=== PATIENT | female | born 1965 | race Caucasian/White ===

== ENCOUNTER 2019-09-28 11:30 | Emergency (ER) | payer OTHER ==
[~2019-09-28] VITALS: Ht 157.5 cm; Wt 89.4 kg
--- OUTSIDE RECORDS SUMMARY | ~2019-09-28 | XMS | Clinical Summary ---
Demographics + + + | Address | [address] | | | [place] [address] | + + + | Home Phone | | + + + | Preferred Language | Unknown | + + + | Marital Status | Single | + + + | Adventism Affiliation | Unknown | + + + | Race | White | + + + | Ethnic Group | Not or | + + + Author + + + | Author | NON REVENUE LOCATIONS | + + + | Organization | NON REVENUE LOCATIONS | + + + | Address | Unknown | + + + | Phone | Unavailable | + + + Support + + +---------+ + | Name | Relationship | Address | Phone | + + +---------+ + | Sourav Perry | ECON | Unknown | | + + +---------+ + Care Team Providers + +------+ + | Care Manager Winter Name | Role | Phone | + +------+ + | Dina Craig MD | PCP | | + +------+ + Source Comments [facility]UAN [facility] Allergies + + + + + + | Active Allergy | Reactions | Severity | Noted | Comments | | | | | Date | | + + + + + + | Penicillin | Headache, Rash, | | 05/28/20 | | | | Nausea and Vomiting | | 19 | | + + + + + + | Sulfa (Sulfonamide | Headache, Rash, | | 05/28/20 | | | Antibiotics) | Nausea and Vomiting | | 19 | | + + + + + + Medications + + + +---------+------+------+-------+ | Medication | Sig | Dispensed | Refills | Star | End | Statu | | | | | | t | Date | s | | | | | | Date | | | + + + +---------+------+------+-------+ | irbesartan 300 mg | Take 1 tablet by | | 0 | 07/2 | | Activ | | oral tablet | mouth once daily. | | | 1/20 | | e | | | | | | 19 | | | + + + +---------+------+------+-------+ | metoprolol | Take 1 tablet by | | 0 | 07/2 | | Activ | | tartrate 50 mg oral | mouth two times | | | 1/20 | | e | | tablet | daily. | | | 19 | | | + + + +---------+------+------+-------+ | omeprazole 40 mg | Take 1 capsule by | | 0 | 07/2 | | Activ | | oral capsule,delayed | mouth once daily. | | | 20 | | e | | release(DR/EC) | | | | 19 | | | + + + +---------+------+------+-------+ | albuterol 90 | Inhale by mouth as | | 0 | 07/2 | | Activ | | mcg/actuation | needed. | | | 20 | | e | | inhalation HFA | | | | 19 | | | | aerosol inhaler | | | | | | | + + + +---------+------+------+-------+ | sertraline HCl | Take 50 mcg by mouth | | 0 | | | Activ | | (SERTRALINE ORAL) | two times daily. | | | | | e | + + + +---------+------+------+-------+ Active Problems Not on file Encounters +--------+ + + + + | Date | Type | Specialty | Care Team | Description | +--------+ + + + + | 07/19/ | Telephone | Cardiology | Gildardo Samayoa RN | Appointment | | 2019 | | | | | +--------+ + + + + from Last 3 Months Social History + + + +--------+------+ | Tobacco Use | Types | Packs/Day | Years | Date | | | | | Used | | + + + +--------+------+ | Current Every Day | Cigarettes | 1 | 47 | | | Smoker | | | | | + + + +--------+------+ + +---+---+---+ | Smokeless Tobacco: | | | | | Never Used | | | | + +---+---+---+ + + +---------+ + | Alcohol Use | Drinks/Week | oz/Week | Comments | + + +---------+ + | Not Currently | | | | + + +---------+ + + + + | Sex Assigned at | Date Recorded | | | | + + + | Not on file | | + + + + + + + | Job Start Date | Occupation | Industry | + + + + | Not on file | Not on file | Not on file | + + + + + + + + | Travel History | Travel Start | Travel End | + + + + + + | No recent travel history available. | + + Last Filed Vital Signs + + + + + | Vital Sign | Reading | Time Taken | Comments | + + + + + | Blood Pressure | 98/62 | 05/28/2019 2:36 PM | | | | | PDT | | + + + + + | Pulse | 63 | 05/28/2019 2:36 PM | | | | | PDT | | + + + + + | Temperature | - | - | | + + + + + | Respiratory Rate | - | - | | + + + + + | Oxygen Saturation | 98% | 05/28/2019 2:36 PM | | | | | PDT | | + + + + + | Inhaled Oxygen | - | - | | | Concentration | | | | + + + + + | Weight | 86.6 kg (191 lb) | 05/28/2019 2:36 PM | | | | | PDT | | + + + + + | Height | 157.5 cm (5' 2") | 05/28/2019 2:36 PM | | | | | PDT | | + + + + + | Body Mass Index | 34.93 | 05/28/2019 2:36 PM | | | | | PDT | | + + + + + Plan of Treatment +--------+ + + + + | Date | Type | Specialty | Care Team | Description | +--------+ + + + + | 07/24/ | Procedure | Surgery | | | | 2020 | Pass | | | | +--------+ + + + + + + + + + | Health Maintenance | Due Date | Last Done | Comments | + + + + + | Pneumococcal | | | | | vaccination (1 of 1 | 0 | | | | - PPSV23) | | | | + + + + + | Influenza (Flu) | | | | | vaccination (#1) | 9 | | | + + + + + Results Not on filefrom Last 3 Months Insurance + +--------+ +--------+-------+---------+--------+ | Payer | Benefi | Subscriber | Effect | Phone | Address | Type | | | t Plan | ID | [id number] | | | | | | / | | Dates | | | | | | Group | | | | | | + +--------+ +--------+-------+---------+--------+ | RED MUD THICKENER OPERATOR MEDICAID | RED MUD THICKENER OPERATOR | [id number] | | | | Medica | | | [place] | | 018-Pr | | | id | | | [place] | | esent | | | | + +--------+ +--------+-------+---------+--------+ + +--------+ +--------+ + + | Guarantor Name | Accoun | Relation to | Date | Phone | Billing Address | | | t Type | Patient | of | | | | | | | | | | + +--------+ +--------+ + + | Rita Salmeron | Person | Self [birth year] | [birth year] | | | al/Fam | | 1965 | [phone] | [place] [address] | | | colleen | | | 4 (Home) | | + +--------+ +--------+ + +
--- OUTSIDE RECORDS SUMMARY | ~2019-09-28 | XMS | Clinical Summary ---
Demographics + + + | Address | [address] | | | [place] [address] | + + + | Home Phone | | + + + | Preferred Language | Unknown | + + + | Marital Status | Single | + + + | Mu-Ism Affiliation | Unknown | + + + [...] Team Providers + +------+ + | Care Film Reader Name | Role | Phone | + +------+ + | iDna Craig MD | PCP | | + +------+ + Source Comments JUAN CARLOS [facility] Allergies + + + + + + [...] | | | + +--------+ +--------+-------+---------+--------+ | DIRECTOR CLINICAL RESEARCH MEDICAID | DIRECTOR CLINICAL RESEARCH | xxxxxxxx | | | | Medica [...] | 1965 | [phone] | [place] [address] | | | colleen | | | 4 (Home) | | + +--------+ +--------+ + +
--- OUTSIDE RECORDS SUMMARY | ~2019-09-28 | XMS | Encounter Summary ---
Demographics + + + | Address | [address] | | | [place] [address] | + + + | Home Phone | | + + + | Preferred Language | Unknown | + + + | Marital Status | Single | + + + | Buddhism Affiliation | Unknown | + + + | Race | White | + + + | Ethnic Group | Not or | + + + Author + + + | Author | [facility] | + + + | Organization | [facility] | + + + | Address | Unknown | + + + | Phone | Unavailable | + + + Support + + +---------+ + | Name | Relationship | Address | Phone | + + +---------+ + | Sourav Perry | ECON | Unknown | | + + +---------+ + Care Team Providers + +------+ + | Care Analytical Chemist Name | Role | Phone | + +------+ + | Dina Craig MD | PCP | | + +------+ + Reason for Referral Consult to [place] (Routine) + +--------+ + + + + | Status | Reason | Specialty | Diagnoses / | Referred By | Referred To | | | | | Procedures | Contact | Contact | + +--------+ + + + + | Authorized | | Thoracic | Diagnoses | Maile, | Maile, | | | | Surgery | Schwannoma | MD Lai | MD Lai | | | | | Procedures | [address] | [address] | | | | | REQUEST TO | [address] [facility] | [address] | | | | | SURGERY | Rd | [address] [place], | | | | | CLIENT TECHNICAL SPECIALIST | [place], [place] | [place] | | | | | [place] | [address] | [address] | | | | | THORACOSCOPY | Phone: | Phone: | | | | | SURG EXC | [phone] | [phone] | | | | | MEDIAST MASS | Fax: | Fax: | | | | | [place] | [phone] | [phone] | | | | | RESECTION OF | | | | | | | MEDIASTINAL | | | | | | | TUMOR | | | | | | | LVATS, | | | | | | | unlikely | | | | | | | thoracotomy- | | | | | | | resection | | | | | | | of posterior | | | | | | | mediastinal | | | | | | | mass [id number] | | | | | | | | | | | | | | Thoracoscopy | | | | | | | , surgical; | | | | | | | with | | | | | | | excision of | | | | | | | mediastinal | | | | | | | cyst, | | | | | | | tumor, or | | | | | | | mass | | | | | | | [id number] | | | | | | | Resection of | | | | | | | mediastinal | | | | | | | tumor | | | + +--------+ + + + + Reason for Visit + + + | Reason | Comments | + + + | New patient | | | consultation | | + + + Consultation (Routine) + +--------+ + + + + | Status | Reason | Specialty | Diagnoses / | Referred By | Referred To | | | | | Procedures | Contact | Contact | + +--------+ + + + + | Authorized | | Thoracic | Diagnoses | Rafa, | Maile, | | | | Surgery | left | MD Dina | MD Lai | | | | | posterior | [address] | [address] | | | | | mediastinal | Sudarshan Rodriguez | [address] | | | | | mass | [place], | [address] [place], | | | | | | [place] | [place] | | | | | | [address] | [address] | | | | | | Phone: | Phone: | | | | | | [phone] | [phone] | | | | | | Fax: | Fax: | | | | | | [phone] | [phone] | + +--------+ + + + + Encounter Details +--------+---------+ + + + | Date | Type | Department | Care Team | Description | +--------+---------+ + + + | 05/28/ | Office | Cardiothoracic | Lai Gr MD | Schwannoma (Primary | | 2019 | Visit | Surgery at [facility] [address] | [address] | Dx) | | | | [address] | [address] | | | | | Mail[address]: [id number] | [place], [place] | | | | | [facility] | [address] | | | | | [place], [place] | [phone] | | | | | [address] | | | | | | [phone] | | | +--------+---------+ + + + Social History + + + +--------+------+ | [...] recent travel history available. | + + documented as of this encounter Last Filed Vital Signs + + + [...] | | + + + + + documented in this encounter Patient Instructions Patient Instructions Balaji Sierra NP - 05/28/2019 2:00 PM PDTPre-op preparations: Prior to surgery: - ECG (in [place]) - Blood tests: INR, T&S, CMP, CBC (in [place]) - Dobutamine stress test (in [place]) - Non-contrast chest CT (in [place]) 20 June: - Hold irbesartan - Nothing to eat or drink after midnight 21 June: - Left VATS, unlikely thoracotomy, resection of posterior mediastinal mass (time of procedu re to be determined) Expected hospitalization: - Around 3 days Expected recovery: - Around 4-6 weeks Restrictions after surgery: - No lifting over 10 pounds for 6 weeks - No driving while taking narcotic pain medications Follow-up appointment after surgery: - 2 weeks (we will arrange) Biopsy results: - Expected 1 week after surgery documented in this encounter Progress Notes Lai Gr MD - 05/28/2019 2:00 PM PDTGeneral Thoracic Surgery Inpatient Consult Date of Service: 05/28/2019 Referring Provider: Dina Craig MD [address] [place] [id number] Primary Care Physician: Dina Craig MD [address] [place] [id number] Care Team: Dina Craig MD Chief Complaint: Left posterior mediastinal mass History of Present Illness: Ms. Rita Salmeron is a 54 year old female who presented with a left posterior mediasti nal mass first seen on CT Chest done in [place], [place] 3 years ago. Not follo wed up on until in [place] when had MRI 12/2018. ROVERTO shows mass close to but not involving thoracic vertebra 4.2 X 2.8 cm. Does not invol ve neural foramen. No vertebral body fractures, Report does not specify level but appears T9 level by my count. She has some left sided chest pain, anterior, parasternal, not T9 dermatome. Medications: albuterol 90 mcg/actuation inhalation HFA aerosol inhaler, Inhale by mouth as needed. irbesartan 300 mg oral tablet, Take 1 tablet by mouth once daily. metoprolol tartrate 50 mg oral tablet, Take 1 tablet by mouth two times daily. omeprazole 40 mg oral capsule,delayed release(DR/EC), Take 1 capsule by mouth once daily. sertraline HCl (SERTRALINE ORAL), Take 50 mcg by mouth two times daily. Allergies: The patient is allergic to penicillin and sulfa (sulfonamide antibiotics).. Past Medical History: No past medical history on file. Past Surgical History: 2017: CHOLECYSTECTOMY, LAPAROSCOPIC 1988: HYSTERECTOMY Comment: transvaginal, 1979's, cervical cancer 2014: RIGHT KNEE REPLACEMENT; Right No date: TONSILLECTOMY 1989: TUBAL LIGATION Family History: Noncontributory Social History: She reports that she has been smoking cigarettes. She has a 47.00 pack-year smoking histo ry. She has never used smokeless tobacco. She reports that she drank alcohol. She reports th at she has current or past drug history. Drug: Smoke. Physical Exam: BP 98/62 (BP Location: Left upper arm, Patient Position: Sitting) | Pulse 63 | Ht 1.575 m (5' 2") | Wt 86.6 kg (191 lb) | SpO2 98% | BMI 34.93 kg/m | BSA 1.95 m Studies: I personally reviewed the patient's ROVERTO 12/2018. Also reviewed by neuroradiology at [facility]. Possible extramedullary hematopoeisis, fatty component, does not involve neural f oramen. CT Chest: Will get. MRI as above. Assessment: In summary, Ms. Salmeron is a 54 year old female who presents with left sided posterior medias tinal mass. 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 Other neoplasm. I had a long conversation with Ms. Salmeron and her regarding her condition and the na tural history of this. We discussed the potential risks, benefits, and alternatives of resection versus watchful w aiting in detail. Ms. Salmeron would like to proceed with this. Plan: We will be obtaining some routine preoperative tests today. These include: will schedule surgery in next 1-2 months. Labs ekg cxr Dobutamine stress echo CT Chest,non-contrast to provide map for resection. I spent 60 minutes with Ms. Salmeron. Greater than 50% of this time was spent counseling her and coordinating her care. documented in this enc ounter Plan of Treatment +--------+ + + + + | Date | Type | Specialty | Care Team | Description | +--------+ + + + + | 07/24/ | Procedure | Surgery | | | | 2020 | Pass | | | | +--------+ + + + + + +------+--------+ + + | Name | Type | Priori | Associated Diagnoses | Order Schedule | | | | ty | | | + +------+--------+ + + | 12 LEAD ECG | ECG | Routin | Schwannoma | Ordered: 05/28/2019 | | | | e | | | + +------+--------+ + + | COMPLETE METABOLIC | Lab | Routin | Schwannoma | Expected: | | SET | | e | | 05/28/2019, Expires: | | (NA,K,CL,CO2,BUN,CRE | | | | 06/28/2020 | | AT,GLUC,CA,AST,ALT,B | | | | | | BELEM TOTAL,ALK | | | | | | PHOS,ALB,PROT TOTAL) | | | | | + +------+--------+ + + | INR | Lab | Routin | Schwannoma | Expected: | | | | e | | 05/28/2019, Expires: | | | | | | 06/28/2020 | + +------+--------+ + + | TYPE AND SCREEN | Lab | Routin | Schwannoma | Expected: | | | | e | | 05/28/2019, Expires: | | | | | | 06/28/2020 | + +------+--------+ + + | COMPLETE METABOLIC | Lab | Routin | Schwannoma | Expected: 05/28/2019 | | SET | | e | | (Approximate), | | (NA,K,CL,CO2,BUN,CRE | | | | Expires: 06/28/2020 | | AT,GLUC,CA,AST,ALT,B | | | | | | BELEM TOTAL,ALK | | | | | | PHOS,ALB,PROT TOTAL) | | | | | + +------+--------+ + + | CBC ONLY | Lab | Routin | Schwannoma | Expected: 05/28/2019 | | | | e | | (Approximate), | | | | | | Expires: 06/28/2020 | + +------+--------+ + + | INR | Lab | Routin | Schwannoma | Expected: 05/28/2019 | | | | e | | (Approximate), | | | | | | Expires: 06/28/2020 | + +------+--------+ + + | 12 LEAD ECG | ECG | Routin | Schwannoma | Ordered: 05/28/2019 | | | | e | | | + +------+--------+ + + documented as of this encounter Procedures + +--------+ + + + | Procedure Name | Priori | Date/Time | Associated Diagnosis | Comments | | | ty | | | | + +--------+ + + + | OUTSIDE RADIOLOGY - | | 01/03/2019 | | Results for this | | MRI | | 12:00 AM | | procedure are in the | | | | PDT | | results section. | + +--------+ + + + | OUTSIDE RADIOLOGY - | | 01/03/2019 | | Results for this | | MRI | | 12:00 AM | | procedure are in the | | | | PDT | | results section. | + +--------+ + + + | OUTSIDE RADIOLOGY - | | 01/03/2019 | | Results for this | | MRI | | 12:00 AM | | procedure are in the | | | | PDT | | results section. | + +--------+ + + + | LAB REPORTS | | 06/27/2018 | | Results for this | | | | 12:00 AM | | procedure are in the | | | | PDT | | results section. | + +--------+ + + + documented in this encounter Results OUTSIDE RADIOLOGY - MRI (01/03/2019 12:00 AM PDT) + + + | Narrative | Performed At | + + + | | | + + + OUTSIDE RADIOLOGY - MRI (01/03/2019 12:00 AM PDT) + + + | Narrative | Performed At | + + + | | | + + + OUTSIDE RADIOLOGY - MRI (01/03/2019 12:00 AM PDT) + + + | Narrative | Performed At | + + + | | | + + + LAB REPORTS (06/27/2018 12:00 AM PDT) + + + | Narrative | Performed At | + + + | | | + + + documented in this encounter Visit Diagnoses + + | Diagnosis | + + | Schwannoma - Primary Other benign neoplasm of connective and other soft tissue of | | unspecified site | + + documented in this encounter
--- OUTSIDE RECORDS SUMMARY | ~2019-09-28 | XMS | Encounter Summary ---
Demographics + + + | Address | [address] | | | [place] [address] | + + + | Home Phone | | + + + | Preferred Language | Unknown | + + + | Marital Status | Single | + + + | Holiness Affiliation | Unknown | + + + | Race | White | + + + | Ethnic Group | Not or | + + + Author + + + | Author | [facility] | + + + | Organization | [facility] | + + + | Address | Unknown | + + + | Phone | Unavailable | + + + Support + + +---------+ + | Name | Relationship | Address | Phone | + + +---------+ + | Sourav Perry | ECON | Unknown | | + + +---------+ + Care Team Providers + +------+ + | Care Fruit Grower Name | Role | Phone | + +------+ + | Dina Craig MD | PCP | | + +------+ + Encounter Details +--------+ + + + + | Date | Type | Department | Care Team | Description | +--------+ + + + + | 06/12/ | Telephone | Cardiothoracic | Balaji Sierra NP | | | 2019 | | Surgery at [facility] [address] | [address] | | | | | [address] | [place], [place] | | | | | Mailcode: [id number] | [address] | | | | | [facility] | [phone] | | | | | [place], [place] | | | | | | [address] | | | | | | [phone] | | | +--------+ + + + + Social History + + [...] + + documented as of this encounter Plan of Treatment +--------+ + + + + | Date | Type | Specialty | Care Team | Description | +--------+ + + + + | 07/24/ | Procedure | Surgery | | | | 2020 | Pass | | | | +--------+ + + + + documented as of this encounter Visit Diagnoses Not on filedocumented in this encounter"
--- OUTSIDE RECORDS SUMMARY | ~2019-09-28 | XMS | Encounter Summary ---
Demographics + + + | Address | [address] | | | [place] [address] | + + + | Home Phone | | + + + | Preferred Language | Unknown | + + + | Marital Status | Single | + + + | Jewish Affiliation | Unknown | + + + | Race | White | + + + | Ethnic Group | Not or | + + + Author + + + | Organization | Unknown | + + + | Address | Unknown | + + + | Phone | Unavailable | + + + Support + + +---------+ + | Name | Relationship | Address | Phone | + + +---------+ + | Sourav Perry | JIAN | Unknown | | + + +---------+ + Care Team Providers + +------+ + | Care Product Safety Expert Name | Role | Phone | + +------+ + | Dina Craig MD | PCP | | + +------+ + Encounter Details +--------+--------+ + + + | Date | Type | Department | Care Team | Description | +--------+--------+ + + + | 05/28/ | Travel | | | | | 2019 | | | | | +--------+--------+ + + + Social History + + [...]
--- OUTSIDE RECORDS SUMMARY | ~2019-09-28 | XMS | Encounter Summary ---
Demographics + + + | Address | [address] | | | [place] [address] | + + + | Home Phone | | + + + | Preferred Language | Unknown | + + + | Marital Status | Single | + + + | Spiritism Affiliation | Unknown | + + + | Race | White | + + + | Ethnic Group | Not or | + + + Author + + + | Author | [facility] | + + + | Organization | [facility] | + + + | Address | Unknown | + + + | Phone | Unavailable | + + + Support + + +---------+ + | Name | Relationship | Address | Phone | + + +---------+ + | Sourav Perry | ECON | Unknown | | + + +---------+ + Care Team Providers + +------+ + | Care Rehabilitation Counsellor Name | Role | Phone | + +------+ + | Dina Craig MD | PCP | | + +------+ + Encounter Details +--------+ + + + + | Date | Type | Department | Care Team | Description | +--------+ + + + + | 06/04/ | Telephone | Cardiothoracic | Balaji Sierra NP | | | 2019 | | Surgery at [facility] | [address] | | | | | [address] | [place], [place] | | | | | [address]: [id number] | [address] | | | | | [facility] | [phone] | | | | | [place], [place] | | | | | | [address] | | | | | | [phone] | | | +--------+ + + + [...]
--- OUTSIDE RECORDS SUMMARY | ~2019-09-28 | XMS | Encounter Summary ---
Demographics + + + | Address | [address] | | | [place] [address] | + + + | Home Phone | | + + + | Preferred Language | Unknown | + + + | Marital Status | Single | + + + | Mormonism Affiliation | Unknown | + + + | Race | White | + + + | Ethnic Group | Not or | + + + Author + + + | Author | [facility] | + + + | Organization | [facility] | + + + | Address | Unknown | + + + | Phone | Unavailable | + + + Support + + +---------+ + | Name | Relationship | Address | Phone | + + +---------+ + | Sourav Perry | ECON | Unknown | | + + +---------+ + Care Team Providers + +------+ + | Care District Sales Manager Name | Role | Phone | + +------+ + | Dina Craig MD | PCP | | + +------+ + Reason for Visit + + + | Reason | Comments | + + + | Appointment | | + + + Encounter Details +--------+ + + + + | Date | Type | Department | Care Team | Description | +--------+ + + + + | 07/19/ | Telephone | Cardiac | Gildardo Samayoa RN | Appointment | | 2018 | | Non-Invasive Testing | [address] | | | | | at [facility] | [address], | | | | | [address] | [place] [address] | | | | | Loop Mailcode: | | | | | | [id number] | | | | | | [address] | | | | | | [place], [place] | | | | | | [address] | | | | | | [phone] | | | +--------+ + + + [...]
--- OUTSIDE RECORDS SUMMARY | ~2019-09-28 | XMS | Encounter Summary ---
Demographics + + + | Address | [address] | | | [place] [address] | + + + | Home Phone | | + + + | Preferred Language | Unknown | + + + | Marital Status | Single | + + + | Zoroastrianism Affiliation | Unknown | + + + | Race | White | + + + | Ethnic Group | Not or | + + + Author + + + | Author | [facility] | + + + | Organization | [facility] | + + + | Address | Unknown | + + + | Phone | Unavailable | + + + Support + + +---------+ + | Name | Relationship | Address | Phone | + + +---------+ + | Sourav Perry | ECON | Unknown | | + + +---------+ + Care Team Providers + +------+ + | Care Density Control Puncher Name | Role | Phone | + +------+ + | Dina Craig MD | PCP | | + +------+ + Encounter Details +--------+ + + + + | Date | Type | Department | Care Team | Description | +--------+ + + + + | 06/19/ | Telephone | Cardiothoracic | Balaji Sierra NP | | | 2019 | | Surgery at [facility] | [address] | | | | | [address] | [place], [place] | | | | | [address]: [id number] | [address] | | | | | [facility] | [phone] | | | | | [place], [place] | | | | | | [address] | | | | | | [phone] | | | +--------+ + + + [...]
--- OUTSIDE RECORDS SUMMARY | ~2019-09-28 | XMS | Encounter Summary ---
Demographics + + + | Address | [address] | | | [place] [address] | + + + | Home Phone | | + + + | Preferred Language | Unknown | + + + | Marital Status | Single | + + + | Sikhism Affiliation | Unknown | + + + | Race | White | + + + | Ethnic Group | Not or | + + + Author + + + | Author | [facility] | + + + | Organization | [facility] | + + + | Address | Unknown | + + + | Phone | Unavailable | + + + Support + + +---------+ + | Name | Relationship | Address | Phone | + + +---------+ + | Sourav Perry | ECON | Unknown | | + + +---------+ + Care Team Providers + +------+ + | Care Fitness Sales Consultant Name | Role | Phone | + +------+ + | Dina Craig MD | PCP | | + +------+ + Encounter Details +--------+ + + + + | Date | Type | Department | Care Team | Description | +--------+ + + + + | 06/01/ | Telephone | Cardiothoracic | Balaji Sierra NP | | | 2019 | | [facility] [address] | [address] | | | | | [address] | [place], [place] | | | | | Mailcode: [address] | [address] | | | | | [facility] | [phone] | | | | | [place], [place] | | | | | | [address] | | | | | | [phone] | | | +--------+ + + + [...]
--- OUTSIDE RECORDS SUMMARY | ~2019-09-28 | XMS | Encounter Summary ---
Demographics + + + | Address | [address] | | | [place] [address] | + + + | Home Phone | | + + + | Preferred Language | Unknown | + + + | Marital Status | Single | + + + | Amish Affiliation | Unknown | + + + [...] Team Providers + +------+ + | Care Beater Engineer Helper Name | Role | Phone | + [...] | | | [address] | [place], [place] | | | | | Mailcode: [id number] | [address] | | | | | [facility] | [phone] | | | | | [place], [place] | | | | | | [address] | | | | | | [phone] | | | +--------+ + + + [...]
--- OUTSIDE RECORDS SUMMARY | ~2019-09-28 | XMS | Encounter Summary ---
Demographics + + + | Address | [address] | | | [place] [address] | + + + | Home Phone [...] Author + + + | Author | [facility] | + + + | Organization | [facility] | + + + | Address | Unknown | + + + | Phone | Unavailable | + + + Support + + +---------+ + | Name | Relationship | Address | Phone | + + +---------+ + | Sourav Perry | ECON | Unknown | | + + +---------+ + Care Team Providers + +------+ + | Care Testing Machine Operator Name | Role | Phone | + [...] | | | [address] | [place], [place] | | | | | Mailcode: [id number] | [address] | | | | | [facility] | [phone] | | | | | [place], [place] | | | | | | [address] | | | | | | [phone] | | | +--------+ + + + [...]
--- OUTSIDE RECORDS SUMMARY | ~2019-09-28 | XMS | Encounter Summary ---
Demographics + + + | Address | [address] | | | [place] [address] | + + + | Home Phone | | + + + | Preferred Language | Unknown | + + + | Marital Status | Single | + + + | Worship Affiliation | Unknown | + + + [...] Team Providers + +------+ + | Care Family Day Carer Name | Role | Phone | + [...] | | | [address] | [place], [place] | | | | | Mailcode: [id number] | [address] | | | | | [facility] | [phone] | | | | | [place], [place] | | | | | | [address] | | | | | | [phone] | | | +--------+ + + + [...]
--- OUTSIDE RECORDS SUMMARY | ~2019-09-28 | XMS | Encounter Summary ---
Demographics + + + | Address | [address] | | | [place] [address] | + + + | Home Phone | | + + + | Preferred Language | Unknown | + + + | Marital Status | Single | + + + | Hindu Affiliation | Unknown | + + + | Race | White | + + + | Ethnic Group | Not or | + + + Author + + + | Author | [facility] | + + + | Organization | [facility] | + + + | Address | Unknown | + + + | Phone | Unavailable | + + + Support + + +---------+ + | Name | Relationship | Address | Phone | + + +---------+ + | Sourav Perry | ECON | Unknown | | + + +---------+ + Care Team Providers + +------+ + | Care Yarn Texture Machine Operator Name | Role | Phone | + +------+ + | Dina Craig MD | PCP | | + +------+ + Reason for Referral Diagnostic Testing (Routine) +--------+--------+ + + + + | Status | Reason | Specialty | Diagnoses / | Referred By | Referred To | | | | | Procedures | Contact | Contact | +--------+--------+ + + + + | Closed | | Cardiology | Diagnoses | Rigo, | | | | | | Schwannoma | LASHONDA Carpio | | | | | | Procedures | [address] | | | | | | STRESS | Ave | | | | | | [address] | [place], [place] | | | | | | [place]ARDIO[place] | [address] | | | | | | AM, ADULT | Phone: | | | | | | [place] ECHO | [phone] | | | | | | HEART, FULL | Fax: | | | | | | STRESS/REST | [phone] | | +--------+--------+ + + + + Encounter Details +--------+ + + + + | Date | Type | Department | Care Team | Description | +--------+ + + + + | 05/29/ | Bellows Charger Assembler | Cardiothoracic | Balaji Sierra NP | Schwannoma (Primary | | 2019 | | [facility] | [address] | Dx) | | | | [address] | [place], [place] | | | | | Mailcode: [id number] | [address] | | | | | [facility] | [phone] | | | | | [place], [place] | | | | | | [address] | | | | | | [phone] | | | +--------+ + + + [...] Procedure | Surgery | | | | [address] | | | | +--------+ + + + + + +------+--------+ + + | Name | Type | Priori | Associated Diagnoses | Order Schedule | | | | ty | | | + +------+--------+ + + | STRESS DOBUTAMINE | ECG | Routin | Schwannoma | Ordered: 05/29/2019 | | ECHOCARDIOGRAM, | | e | | | | ADULT | | | | | + +------+--------+ + + | ECG TRACING FOR | ECG | Routin | Schwannoma | Expected: 05/29/2019 | | STRESS | | e | | (Approximate), | | ECHOCARDIOGRAM | | | | Expires: 06/29/2020 | + +------+--------+ + + documented as of this encounter Visit Diagnoses + + | Diagnosis | + + | Schwannoma - Primary Other benign neoplasm of connective and other soft tissue of | | unspecified site | + + documented in this encounter"
--- OUTSIDE RECORDS SUMMARY | ~2019-09-28 | XMS | Encounter Summary ---
Demographics + + + | Address | [address] | | | [place] [address] | + + + | Home Phone | | + + + | Preferred Language | Unknown | + + + | Marital Status | Single | + + + | Alevism Affiliation | Unknown | + + + | Race | White | + + + | Ethnic Group | Not or | + + + Author + + + | Author | [facility] | + + + | Organization | [facility] | + + + | Address | Unknown | + + + | Phone | Unavailable | + + + Support + + +---------+ + | Name | Relationship | Address | Phone | + + +---------+ + | Sourav Perry | ECON | Unknown | | + + +---------+ + Care Team Providers + +------+ + | Care Ironworker Name | Role | Phone | + [...] | | | [address] | [place], [place] | | | | | Mailcode: [id number] | [address] | | | | | [facility] | [phone] | | | | | [place], [place] | | | | | | [address] | | | | | | [phone] | | | +--------+ + + + [...]
--- OUTSIDE RECORDS SUMMARY | ~2019-09-28 | XMS | Encounter Summary ---
Demographics + + + | Address | [address] | | | [place] [address] | + + + | Home Phone | | + + + | Preferred Language | Unknown | + + + | Marital Status | Single | + + + | Tenriism Affiliation | Unknown | + + + | Race | White | + + + | Ethnic Group | Not or | + + + Author + + + | Author | [facility] | + + + | Organization | [facility] | + + + | Address | Unknown | + + + | Phone | Unavailable | + + + Support + + +---------+ + | Name | Relationship | Address | Phone | + + +---------+ + | Sourav Perry | ECON | Unknown | | + + +---------+ + Care Team Providers + +------+ + | Care Audio/Video Engineer Name | Role | Phone | + [...] + + + | Closed | | Radiology | Diagnoses | Rigo, | | | | | | Schwannoma | LASHONDA Carpio | | | | | | Procedures | [address] | | | | | | CT CHEST WO | Ave | | | | | | CONTRAST | [place], [place] | | | | | | | [address] | | | | | | | Phone: | | | | | | | [phone] | | | | | | | Fax: | | | | | | | [phone] | | +--------+--------+ + + + + Encounter Details +--------+ + + + + | Date | Type | Department | Care Team | Description | +--------+ + + + + | 06/19/ | Telephone | Cardiothoracic | Balaji Sierra NP | | | 2019 | | [facility] | [address] | | | | | [address] | [place], [place] | | | | | Mailcode: [address] | [address] | | | | | [facility] | [phone] | | | | | [place], [place] | | | | | | [address] | | | | | | [phone] | | | +--------+ + + + [...] | +--------+ + + + + + +---------+--------+ + + | Name | Type | Priori | Associated Diagnoses | Order Schedule | | | | ty | | | + +---------+--------+ + + | X-RAY CHEST 2 VIEW | Imaging | Routin | Schwannoma | Expected: | | | | e | | 06/19/2019, Expires: | | | | | | 07/19/2020 | + +---------+--------+ + + | CT CHEST WO CONTRAST | Imaging | Routin | Schwannoma | Expected: | | | | e | | 06/19/2019, Expires: | | | | | | 07/19/2020 | + +---------+--------+ + + documented as of this encounter Visit Diagnoses + + | Diagnosis | + + | Schwannoma - Primary Other benign neoplasm of connective and other soft tissue of | | unspecified site | + + documented in this encounter"
--- OUTSIDE RECORDS SUMMARY | ~2019-09-28 | XMS | Encounter Summary ---
Demographics + + + | Address | [address] | | | [place] [address] | + + + | Home Phone | | + + + | Preferred Language | Unknown | + + + | Marital Status | Single | + + + | Yazidi Affiliation | Unknown | + + + [...] Team Providers + +------+ + | Care Court Worker Name | Role | Phone | + [...] | | SURGERY | Rd | [address], | | | | | COREMAKING MACHINE SETTER | [place], [place] | [place] | | | | | [place] | [address] | [address] | | | | | THORACOSCOPY | Phone: | Phone: | | | | | SURG EXC | [phone] | [phone] | | | | | MEDIAST MASS | Fax: | Fax: | | | | | ID | [phone] | [phone] | | | | | RESECTION OF [...] | | | | | | [place] [id number] | | | | | | | [...] | | | | | | | [address] | | | | | | | [...] | | mass | [place], | [address], | | | | | | [place] | [place] | | | | | | [address] | [address] | | | | | | Phone: | Phone: | | | | | | [phone] | [phone] | | | | | | Fax: | Fax: | | | | | | [phone] | [phone] | + +--------+ + + + + [...] | | | | Mailcode: [address] | [place], [place] | | | | | [facility] | [address] | | | | | [place], [place] | [phone] | | | | | [address] | | | | | | [phone] | | | +--------+---------+ + + + [...] preparations: Prior to surgery: - ECG (in [place]) - Blood tests: INR, T&S, CMP, CBC (in [place]) - Dobutamine stress test (in [place]) - Non-contrast chest CT (in [place]) 20 June: - Hold irbesartan - Nothing [...] 05/28/2019 Referring Provider: Dina Craig MD [address] [place] [id number] Primary Care Physician: Dina Craig MD [address] [facility] [place] [id number] Care Team: Dina Craig MD Chief Complaint: Left posterior mediastinal mass History of Present Illness: Ms. Rita Salmeron is a 54 year old female who presented with a left posterior mediasti nal mass first seen on CT Chest done in [place], [place] 3 years ago. Not follo wed up on until in [place] when had MRI 12/2018. ROVERTO shows mass [...] ROVERTO 12/2018. Also reviewed by neuroradiology at [facility]. 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
--- OUTSIDE RECORDS SUMMARY | ~2019-09-28 | XMS | Encounter Summary ---
Demographics + + + | Address | [address] | | | [place] [address] | + + + | Home Phone | | + + + | Preferred Language | Unknown | + + + | Marital Status | Single | + + + | Scientologist Affiliation | Unknown | + + + [...] Team Providers + +------+ + | Care Telephone Supervisor Name | Role | Phone | + [...] | | | | | Procedures | [address] | | | | | | STRESS | Ave | | | | | | [address] | [place], [place] | | | | | | [place] | [address] | | | | | | AM, ADULT | Phone: | | | | | | NE ECHO | [phone] | | | | | | HEART, FULL | Fax: | | | | | | STRESS/REST | [phone] | | +--------+--------+ + + + + Encounter Details +--------+ + + + + | Date | Type | Department | Care Team | Description | +--------+ + + + + | 05/29/ | Multicultural Internship | Cardiothoracic | Balaji Sierra NP | Schwannoma (Primary | | 2019 | | Surgery [facility] [address] | [address] | Dx) | | | | [address] | [place], [place] | | | | | Mailcode: [address] | [address] | | | | | [facility] | [phone] | | | | | [place], [place] | | | | | | [address] | | | | | | [phone] | | | +--------+ + + + [...]
--- OUTSIDE RECORDS SUMMARY | ~2019-09-28 | XMS | Encounter Summary ---
Demographics + + + | Address | [address] | | | [place] [address] | + + + | Home Phone | | + + + | Preferred Language | Unknown | + + + | Marital Status | Single | + + + | Pentecostal Affiliation | Unknown | + + + | Race | White | + + + | Ethnic Group | Not or | + + + Author + + + | Author | [facility] | + + + | Organization | [facility] | + + + | Address | Unknown | + + + | Phone | Unavailable | + + + Support + + +---------+ + | Name | Relationship | Address | Phone | + + +---------+ + | Sourav Perry | ECON | Unknown | | + + +---------+ + Care Team Providers + +------+ + | Care Automotive Glass Mechanic Name | Role | Phone | + [...] | | | | | Procedures | [address] | | | | | | CT CHEST WO | Ave | | | | | | CONTRAST | [place], [place] | | | | | | | [address] | | | | | | | Phone: | | | | | | | [phone] | | | | | | | Fax: | | | | | | | [phone] | | +--------+--------+ + + + + [...] | | | [address] | [place], [place] | | | | | Mail[address]: [address] | [address] | | | | | [facility] | [phone] | | | | | [place], [place] | | | | | | [address] | | | | | | [phone] | | | +--------+ + + + [...]
--- OUTSIDE RECORDS SUMMARY | ~2019-09-28 | XMS | Encounter Summary ---
Demographics + + + | Address | [address] | | | [place] [address] | + + + | Home Phone | | + + + | Preferred Language | Unknown | + + + | Marital Status | Single | + + + | Faith Affiliation | Unknown | + + + [...] Team Providers + +------+ + | Care Filter Press Pumper Name | Role | Phone | + [...]
--- OUTSIDE RECORDS SUMMARY | ~2019-09-28 | XMS | Encounter Summary ---
Demographics + + + | Address | [address] | | | [place] [address] | + + + | Home Phone | | + + + | Preferred Language | Unknown | + + + | Marital Status | Single | + + + | Baptist Affiliation | Unknown | + + + | Race | White | + + + | Ethnic Group | Not or | + + + Author + + + | Author | [facility] | + + + | Organization | [facility] | + + + | Address | Unknown | + + + | Phone | Unavailable | + + + Support + + +---------+ + | Name | Relationship | Address | Phone | + + +---------+ + | Sourav Perry | ECON | Unknown | | + + +---------+ + Care Team Providers + +------+ + | Care Picture Hanger Name | Role | Phone | + +------+ + | Dina Craig MD | PCP | | + +------+ + Reason for Referral Diagnostic Testing (Routine) + +--------+ + + + + | Status | Reason | Specialty | Diagnoses / | Referred By | Referred To | | | | | Procedures | Contact | Contact | + +--------+ + + + + | Authorized | | Cardiology | Diagnoses | [place], | Car Echo | | | | | Schwannoma | LASHONDA Carpio | [facility] [address] | | | | | Procedures | [address] | [address] | | | | | STRESS | Ave | Mailcode: | | | | | [address] | [place], [place] | [address] | | | | | ECHOCARDIOGR | [address] | [address] | | | | | AM, ADULT | Phone: | Building | | | | | | [phone] | [place], [place] | | | | | | Fax: | [address] | | | | | | [phone] | Phone: | | | | | | | [phone] | + +--------+ + + + + Encounter Details +--------+ + + + + | Date | Type | Department | Care Team | Description | +--------+ + + + + | 06/22/ | Gas Regulator Repairer Helper | Cardiothoracic | Balaji Sierra NP | Schwannoma (Primary | | 2019 | | [facility] [address] | [address] | Dx) | | | | [address] | [place], [place] | | | | | [address]: [address] | [address] | | | | | [facility] | [phone] | | | | | [place], [place] | | | | | | [address] | | | | | | [phone] | | | +--------+ + + + [...] ECG | Routin | Schwannoma | Ordered: 06/22/2019 | | ECHOCARDIOGRAM, | | e | | | | ADULT | | | | | + +------+--------+ + + | ECG TRACING FOR | ECG | Routin | Schwannoma | Expected: 06/22/2019 | | STRESS | | e | | (Approximate), | | ECHOCARDIOGRAM | | | | Expires: 07/22/2020 | + +------+--------+ + + documented as of this encounter Visit Diagnoses + + | Diagnosis | + + | Schwannoma - Primary Other benign neoplasm of connective and other soft tissue of | | unspecified site | + + documented in this encounter"
--- OUTSIDE RECORDS SUMMARY | ~2019-09-28 | XMS | Encounter Summary ---
Demographics + + + | Address | [address] | | | [place] [address] | + + + | Home Phone [...] Author | [facility] | + + + | Organization | [facility] | + + + | Address | Unknown | + + + | Phone | Unavailable | + + + Support + + +---------+ + | Name | Relationship | Address | Phone | + + +---------+ + | Sourav Perry | ECON | Unknown | | + + +---------+ + Care Team Providers + +------+ + | Care Pharmacy Clinical Specialist Name | Role | Phone | + [...] [address] | | | | | at [facility] | [facility], | | | | | [address] | [place] [address] | | | | | Loop Mailcode: | | | | | | [address] | | | | | | [address] | | | | | | [place], [place] | | | | | | [address] | | | | | | [phone] | | | +--------+ + + + [...]
--- OUTSIDE RECORDS SUMMARY | ~2019-09-28 | XMS | Encounter Summary ---
Demographics + + + | Address | [address] | | | [place] [address] | + + + | Home Phone | | + + + | Preferred Language | Unknown | + + + | Marital Status | Single | + + + | Episcopalian Affiliation | Unknown | + + + | Race | White | + + + | Ethnic Group | Not or | + + + Author + + + | Author | [facility] | + + + | Organization | [facility] | + + + | Address | Unknown | + + + | Phone | Unavailable | + + + Support + + +---------+ + | Name | Relationship | Address | Phone | + + +---------+ + | Sourav Perry | ECON | Unknown | | + + +---------+ + Care Team Providers + +------+ + | Care Horse Racer Name | Role | Phone | + [...] | | Schwannoma | LASHONDA Carpio | [facility] [address] | | | | | Procedures | [address] | [address] | | | | | STRESS | Ave | Mailcode: | | | | | DOBUTAMINE | [place], [place] | [address] | | | | | ECHOCARDIOGR | [address] | [address] | | | | | AM, ADULT | Phone: | Building | | | | | | [phone] | [place], [place] | | | | | | Fax: | [address] | | | | | | [phone] | Phone: | | | | | | | [phone] | + +--------+ + + + + Encounter Details +--------+ + + + + | Date | Type | Department | Care Team | Description | +--------+ + + + + | 06/22/ | Weapons And Tactics Instructor | Cardiothoracic | Balaji Sierra NP | Schwannoma (Primary | | 2019 | | [facility] [address] | [address] | Dx) | | | | [address] | [place], [place] | | | | | Mail[address]: [address] | [address] | | | | | [facility] | [phone] | | | | | [place], [place] | | | | | | [address] | | | | | | [phone] | | | +--------+ + + + [...]
[2019-09-28] MEDS ORDERED: ZOLOFT50 MG PO (11:36)
[2019-09-28] MEDS ORDERED: TOPROL XL50 MG PO (11:36)
[2019-09-28] MEDS ORDERED: OMEPRAZOLE40 MG PO (11:37)
== END 2019-09-28 11:46 | disposition home or self-care (01) ==
LOC: ED 11:30
DX: M79.641 Pain in right hand (principal)

== ENCOUNTER 2025-06-08 14:44 | Inpatient (IN) | payer OTHER ==
[~2025-06-08] VITALS: Ht 157.5 cm; Wt 82.2 kg
[~2025-06-08 14:44] MED LIST: METOPROLOL TART50 MG PO; OMEPRAZOLE40 MG PO; ZOLOFT50 MG PO
[2025-06-08] MEDS ORDERED: SODIUM CHLORIDE 0.9% 1,500 ML IV PRN (15:00)
[2025-06-08 15:13] LABS: BASOPHILS 0.7 % (0.1-1.2); EOSINOPHILS 0.3 % (0.7-5.8); LYMPHOCYTES 21.0 % (19.3-51.7); MCH 28.3 PG (25.6-32.2); MCHC 30.6 g/dL (32.2-35.5); MCV 92.4 fL (79.4-94.8); MONOCYTES 13.0 % (4.7-12.5); NEUTROPHILS 63.3 % (34.0-71.1); RBC 5.52 M/uL (3.93-5.22)
[2025-06-08] MEDS ORDERED: SERTRALINE HCL100 MG PO (15:13)
[2025-06-08] MEDS ORDERED: IRBESARTAN300 MG PO (15:13)
[2025-06-08] MEDS ORDERED: VENTOLIN HFA18 GM INH (15:13)
[2025-06-08] MEDS ORDERED: FLUTICASONE PRO16 GM (15:14)
[2025-06-08 15:25] LABS: INR 1.24 (0.80-1.30); PROTIME 15.1 Sec (11.2-14.2)
[2025-06-08] MEDS ORDERED: SEVOFLURANE 250 ML BTL INH ONE (15:26)
[2025-06-08 15:30] LABS: ALT (SGPT) 52.0 U/L (14-59); AST (SGOT) 59.0 U/L (15-37); GLOMERULAR FILTRATION RATE,EST 55.0 mL/min (>60); PROTEIN, TOTAL 6.8 g/dL (6.4-8.2); UREA NITROGEN 43.0 mg/dL (7-18)
[2025-06-08 15:36] LABS: ALCOHOL, MEDICAL <3 ng/dL (<3)
[2025-06-08 15:39] LABS: LACTIC ACID, BLOOD 2.2 mmol/L (0.4-2.0)
[2025-06-08 16:56] LABS: BLOOD/HGB, URINE NEGATIVE (Negative); KETONE, URINE NEGATIVE (Negative); LEUK ESTERASE, URINE NEGATIVE (negative); NITRITE, URINE NEGATIVE (negative)
[2025-06-08 17:02] LABS: BACTERIA, URINE 1+ /hpf (negative); CASTS, URINE NONE SEEN \\lpf; CRYSTALS, URINE NONE SEEN (0-1+); EPITHELIAL CELLS, URINE SQUAMOUS 3+ /lpf (0-1+); REFLEX CULTURE, URINE No (No)
[2025-06-08 17:10] LABS: AMPHETAMINES, URINE NEGATIVE (NEGATIVE); BARBITURATES, URINE NEGATIVE (NEGATIVE); BENZODIAZEPINE, URINE NEGATIVE (NEGATIVE); CANNABINOID, URINE POSITIVE (NEGATIVE); COCAINE, URINE NEGATIVE (NEGATIVE); ECSTASY, URINE NEGATIVE (NEGATIVE); FENTANYL, URINE NEGATIVE (NEGATIVE); METHADONE, URINE NEGATIVE (NEGATIVE); OPIATES, URINE NEGATIVE (NEGATIVE); OXYCODONE, URINE NEGATIVE (NEGATIVE); PHENCYCLIDINE, URINE NEGATIVE (NEGATIVE)
[2025-06-08] MEDS ORDERED: AZITHROMYCIN 500 MG in DEXTROSE 5% 250 ML IV ONE (19:00)
[2025-06-08] MEDS ORDERED: ERYTHROMYCIN 1 GM TUBE OU ONE (19:00)
[2025-06-08 19:18] LABS: BASE EXCESS, BLOOD GAS 0.4 mmol/L (-2-2); HCO3, BLOOD GAS 27.5 mmol/L (22-26); O2 SATURATION, BLOOD GAS 93.5 % (95.0-100.0); PCO2, BLOOD GAS 53.3 mmHg (35-45); PH, BLOOD GAS 7.32 (7.35-7.45); PO2, BLOOD GAS 71.0 mmHg (80-100); TOTAL CO2, BLOOD GAS 29.2
[2025-06-08 19:21] LABS: OXYGEN RECEIVED, BLOOD GAS 5.0
[2025-06-08] MEDS ORDERED: AZITHROMYCIN 500 MG VIAL ONE (19:22)
[2025-06-08] MEDS ORDERED: NICOTINE 21 MG/24 HR 1 EA TDSY TD SCH (19:38)
[2025-06-08] MEDS ORDERED: SODIUM CHLORIDE 0.9% 1,000 ML IV SCH (19:45)
[2025-06-08] MEDS ORDERED: PROCHLORPERAZINE EDISYLATE 10 MG/2 ML VIAL IV PRN (19:45)
[2025-06-08] MEDS ORDERED: ACETAMINOPHEN 325 MG TAB PO PRN (19:45)
--- NOTE | 2025-06-08 20:40 | NUR ---
RECEIVED REPORT FROM KAYLEEN EASTON FROM ER. PT TO FLOOR 2039. ASSESSMENT DONE. PT DENIES PAIN. PT WITH PUREWICK IN PLACE AND IRVIN CARE DONE. PT ON CPOX AND 2L PER NC. BED ALARM ON, SIDE RAILS UP, BED IN LOW POSITION, CALL LIGHT WITH IN REACH. PT HAS NO NEEDS AT THIS TIME.
[2025-06-08 21:24] VITALS: BP 97/64
[2025-06-08] MEDS ORDERED: ALBUTEROL/IPRATROPIUM 3 ML NEB INH ONE (21:30)
[2025-06-08] MEDS ORDERED: ARFORMOTEROL TARTRATE 15 MCG/2 ML VIAL INH SCH (21:39)
[2025-06-08] MEDS ORDERED: BUDESONIDE 0.5 MG/2 ML VIAL INH SCH (21:40)
[2025-06-08] MEDS ORDERED: ALBUTEROL/IPRATROPIUM 3 ML NEB ONE (21:43)
[2025-06-08] MEDS ORDERED: ALBUTEROL SULFATE 0.083% 3 ML VIAL INH PRN (21:45)
--- NOTE | 2025-06-08 22:12 | NUR ---
ROCK (AKA: CINDY) NEEDS A HOME NEBULIZER AND INHALED MEDICATIONS FOR COPD. BROVANA BID, DUONEB Q6PRN, ALBUTEROL Q2 PRN, PULMICORT BID.
--- NOTE | 2025-06-08 23:14 | NUR ---
PATIENT RESTING IN BED. CALL LIGHT IS WITHIN REACH.
[2025-06-09] VITALS (10 sets, daily range): BP systolic 98–134; BP diastolic 51–91
[2025-06-09] MEDS ORDERED: ALBUTEROL/IPRATROPIUM 3 ML NEB INH SCH
--- NOTE | 2025-06-09 00:29 | NUR ---
PT RESTING EYES CLOSED, PULSE 81, O2 SAT 93% ON 2L/NC. CALL LIGHT WITH IN REACH.
[2025-06-09] MEDS ORDERED: ERYTHROMYCIN 3.5 GM TUBE OU SCH (02:00)
--- NOTE | 2025-06-09 02:50 | NUR ---
PATIENT LAYING IN BED. PATIENT VITAL SIGNS AND I&OS WERE DONE. PATIENTS CALL LIGHT IS WITHIN REACH AND NO FURTHER NEEDS AT THIS TIME.
--- NOTE | 2025-06-09 02:57 | NUR ---
ASSESSMENT COMPLETE. KAYLEEN CORONADO PROVIDED WOUND CARE. PT BACK TO RESTING IN HER BED. CALL LIGHT AND BELONGINGS WITH IN REACH. NO FURTHER NEEDS AT THIS TIME.
--- NOTE | 2025-06-09 03:06 | NUR ---
Ulcer, unstageable, anterior left lower leg, 1cm x 1cm, warm, without odor, pain or discharge. Wound bed is brown stable eschar, edges viable, periwound red. Cleaned with Vashe, place iodoflex on wound, cover with gentle border pink foam. Pt tolerated well. Change and clean prn and every 3 days. Ulcer, unstageable, posterior left lower leg, 5.2cm x 1cm, warm, without odor, pain or discharge. Wound bed is firmly adhered yellow slough, edges viable, periwound red. Cleaned with Vashe, placed iodoflex on wound, cover with gnetle border pink foam. pt tolerated well. Change and clean prn and every 3 days. Anterior left lower leg has abrasions and is weeping clear fluid without odor. Cleaned with Vashe and Cavilon placed on skin. BLE placed on clean, absorbant disposable pad. Clean, change, apply prn. Intertrigo under pannus, breasts and right axilla warm, foul odor, painful with cleaning and moist. Areas have a red rash, with bright red borders. Gently cleaned with Vashe and gauze as pt tolerates. Antifungal moisture barrier cream applied. Interdry AG placed under breast and right axilla. Clean areas as needed with Vashe, apply antifungal cream after each cleaning, place Interdry AG under breasts and right axilla. The same Interdry may be used for 5 days or until it becomes soiled with discharge or has an odor. No medications required at time of wound care. Photos in chart. Monitor for changes and then Reassess in 5 days or prn if pt remains under care. days or with
--- NOTE | 2025-06-09 04:14 | NUR ---
PT RESTING WITH EYES CLOSED. GARCÍA RT PROVIDING TREATMENTS. PT O2 SAT 93% ON 2L/NC. CALL LIGHT WITH IN REACH.
--- NOTE | 2025-06-09 05:07 | NUR ---
PATIENT IN BED AT THIS TIME. THIS CONCESSION CASHIER AND CONCESSION CASHIER FELECIA CHARTED VITALS AND I&O'S. LAURAWIROSALINDA CHANGED AT 0500. CALL LIGHT WITHIN REACH, NO FURTHER NEEDS AT THIS TIME.
[2025-06-09 05:57] LABS: BASOPHILS 0.5 % (0.1-1.2); EOSINOPHILS 0.5 % (0.7-5.8); LYMPHOCYTES 19.9 % (19.3-51.7); MCH 28.2 PG (25.6-32.2); MCHC 30.5 g/dL (32.2-35.5); MCV 92.2 fL (79.4-94.8); MONOCYTES 13.4 % (4.7-12.5); NEUTROPHILS 64.7 % (34.0-71.1); RBC 4.90 M/uL (3.93-5.22)
[2025-06-09 06:11] LABS: ALT (SGPT) 45.0 U/L (14-59); AST (SGOT) 51.0 U/L (15-37); GLOMERULAR FILTRATION RATE,EST 76.0 mL/min (>60); PHOSPHORUS, INORGANIC 3.5 mg/dL (2.5-4.9); PROTEIN, TOTAL 6.0 g/dL (6.4-8.2); UREA NITROGEN 36.0 mg/dL (7-18)
--- NOTE | 2025-06-09 06:23 | NUR ---
PT RESTING WITH EYES CLOSED. PT AWAKES TO VOICE. ASSESSMENT COMPLETE. CALL LIGHT WITH IN REACH, SIDE RAILS UP, BED IN LOW POSITION. PT BACK TO RESTING WITH EYES CLOSED.
--- NOTE | 2025-06-09 06:56 | NUR ---
Pt report received from RNs Eli and Elva.
--- NOTE | 2025-06-09 07:20 | NUR ---
In with pt to update white board and for introductions. Pt is A&O, Imaging in with pt at this time for ECHO.
--- NOTE | 2025-06-09 08:54 | NUR ---
PT SITTING IN BED, WE RAISED HER HEAD OF THE BED SO THAT SHE CAN EAT BREAKFAST. I CLEANED UP THE ROOM - AND HELPED THE PT WITH BREAKFAST - SHE DOES NOT HAVE HER GLASSES AND HAS POOR VISION. CALL LIGHT IS WITHIN REACH. HELPED PT WITH EATING BREAKFAST. CLEANED UP ROOM.
--- NOTE | 2025-06-09 08:59 | NUR ---
PT IS HAVING TROUBLE WITH SHAKING IN HER HANDS AND EYE SIGHT. PT IS WEARING A NASAL CANNULA WITH 2L O2 RUNNING. PT NEEDED ONE ON ONE HELP WITH EATING BREAKFAST DUE TO THE SHAKING OF HER HANDS AND HER POOR EYE SIGHT. CALL LIGHT WITHIN REACH. ROOM CLEANED.
[2025-06-09] MEDS ORDERED: MAGNESIUM SULFATE 2 GM/50 ML BAG IV SCH (09:00)
--- NOTE | 2025-06-09 10:50 | NUR ---
In with pt in response to pt's need to use the restroom. 1PA (for L&TM) to the [facility]. Pt voided 200ml tea colored urine and had a small BM (2 medium sized balls of stool). Pt wiped herself and was able to transfer back into bed unassisted with L&TM. Cpox cord changed d/t the end of it falling into the commode while she used it. 2RN skin assessment performed with RN Sarah Allen. Left leg is more edematous than the right, allyvn C/D/I. Noted wounds to the shins, above the left breast, pt's skin is dirty, bottoms of feet are black (dirty). Magnesium IV running as ordered. Advised pt that once her IVF have finished infusing we will assist her to shower. Pt verbalized understanding. She is hard of hearing and does not have her eye glasses with her. Pt's s/o has been here and left.
--- NOTE | 2025-06-09 11:00 | NUR ---
Advised Yovana Bernstein that this pt will need a shower today.
[2025-06-09] MEDS ORDERED: PHARMACY RENAL DOSE ADJUSTMENT 1 DOSE MISC PO SCH (12:00)
--- NOTE | 2025-06-09 12:05 | NUR ---
PC to Holden in [place] to ask about pt's personal inhaler that is in the lock box in her room. This morning, during my assessment, pt began to seem anxious and asked for her inhaler. I gave it to her before I knew whether or not she was supposed to use it. She used it and I put it back into the lock box. Later she asked to use it again after using the commode but I encouraged her to relax once she got back in to bed, and she did not seem to need the inhaler. Holden advised that she is not to use that inhaler, and that if she states she needs it, to give him a call and he will come see her.
[2025-06-09] MEDS ORDERED: AZITHROMYCIN 500 MG in DEXTROSE 5% 250 ML IV SCH (16:00)
--- NOTE | 2025-06-09 16:04 | NUR ---
PT IS RESTING IN BED WITH HER HEAD UP - 35%. PT IS SOILED, HER FEET, ARMS, LEGS AND HAIR, ARE VISIBLY DIRTY. THE BATHROOM IS SET UP FOR A SHOWER, PT WILL USE THE WALKER TO AMBULATE TO THE SHOWER CHAIR AND BACK. PT IS SOB AND HAS TO WEAR EYE GLASSES.
--- NOTE | 2025-06-09 16:10 | NUR ---
PT TOOK A SHOWER, SHE WAS VISIBLY SOILED. USED THE WALKER TO GET FROM THE BED TO THE SHOWER, SAT ON THE SHOWER CHAIR WHILE CLEANING, THEN USED THE WALKER TO AMBULATE BACK TO THE BED. LINEN CHANGE, COMPLETE. NEW GOWN ON PT. PT ALSO PERFORMED ORAL CARE, IRVIN CARE, AND SKIN CARE WHILE IN THE SHOWER.
[2025-06-09] MEDS ORDERED: FUROSEMIDE 20 MG/2 ML VIAL IV SCH (16:27)
--- NOTE | 2025-06-09 19:37 | NUR ---
RECEIVED REPORT ON PT. PT LAYING IN BED WATCHING TV. PT REQUEST HER TABLET AND FRESH WATER. CALL LIGHT WITH IN REACH. PT HAS NO FURTHER NEEDS AT THIS TIME.
--- NOTE | 2025-06-09 22:05 | NUR ---
ASSESSMENT COMPLETE. PUREWICK PLACED. IRVIN CARE PROVIDED. BEDDING CHANGED DUE TO INCONTINENCE. PANNUS, UNDER BREASTS AND RIGHT AXILLA WERE CLEANED, DRIED AND BARRIER OINTMENT APPLIED. PT BED RETURNED TO LOW POSITION, CALL LIGHT AND PERSONAL BELONGINGS WITH IN REACH. PT HAS NO NEEDS AT THIS TIME.
[2025-06-10] VITALS (12 sets, daily range): BP systolic 113–143; BP diastolic 62–99
--- NOTE | 2025-06-10 00:11 | NUR ---
CPOX ALARMING. PT REMOVED OXYGEN FROM NOSE. SpO2 86% ON RA. OXYGEN 2L/NC PLACED. SpO2 BACK TO MID 90'S. SNACK PROVIDED. NO FURTHER NEEDS. BED ALARM FOR SAFETY. CALL LIGHT IN REACH.
--- NOTE | 2025-06-10 02:19 | NUR ---
PT RESTING WITH EYES CLOSED. AWAKENS WHEN I ENTER THE ROOM. ADMINISTERED EYE OINTMENT. PT TOLERATED WELL. REQUESTED ORANGE JUICE. PT GIVEN ORANGE JUICE. CALL LIGHT WITH IN REACH. PT HAS NO NEEDS AT THIS TIME.
--- NOTE | 2025-06-10 04:08 | NUR ---
PT RESTING EYES CLOSED. CALL LIGHT WITH IN REACH.
[2025-06-10 05:35] LABS: BASOPHILS 0.7 % (0.1-1.2); EOSINOPHILS 0.9 % (0.7-5.8); LYMPHOCYTES 25.0 % (19.3-51.7); MCH 27.8 PG (25.6-32.2); MCHC 30.0 g/dL (32.2-35.5); MCV 92.9 fL (79.4-94.8); MONOCYTES 13.3 % (4.7-12.5); NEUTROPHILS 58.0 % (34.0-71.1); RBC 4.78 M/uL (3.93-5.22)
[2025-06-10 05:56] LABS: ALT (SGPT) 51.0 U/L (14-59); AST (SGOT) 40.0 U/L (15-37); GLOMERULAR FILTRATION RATE,EST 80.0 mL/min (>60); PROTEIN, TOTAL 6.1 g/dL (6.4-8.2); UREA NITROGEN 26.0 mg/dL (7-18)
--- NOTE | 2025-06-10 06:05 | NUR ---
NEW PUREWICK AND ATTENDS PLACED AFTER IRVIN CARE. 2PA TO REPOSITION IN BED. NO FURTHER NEEDS.
--- NOTE | 2025-06-10 06:46 | NUR ---
ASSESSMENT COMPLETE. PT GIVEN ICE WATER AND MENU. PT SITTING UP IN BED READING HER TABLET. CALL LIGHT AND PERSONAL BELONGINGS WITH IN REACH. NO FURTHER NEEDS AT THIS TIME.
[2025-06-10] MEDS ORDERED: MAGNESIUM SULFATE 2 GM/50 ML BAG IV SCH (07:15)
--- NOTE | 2025-06-10 07:21 | NUR ---
MORNING REPORT RECIEVED FROM KAYLEEN PEDRAZA. PT LAYING IN BED WITH EYES CLOSED CHEST RISE EQUAL BILAT, PT APPEARS TO BE COMFORTABLE AT THIS TIME AND HAS CALL LIGHT IN REACH IF NEEDED.
--- NOTE | 2025-06-10 09:00 | NUR ---
INTO SEE PATIENT. PERSONAL HEALTH INFORMATION REVIEWED. PATIENT LIVES WITH AND MOTHER IN [place]. PATIENT STATES SHE HAS ONE STAIR INTO THE HOME DENIED DIFFCULTY PRIOR TO THE FALL. SHE USES A CANE. NO WHEELCHAIR, WALKER, OXYGEN OR CPAP. SHE DOES NOT DRIVE BUT STATES HER DRIVES HER IF SHE NEEDS TO GO PLACES. THEY HAVE BEEN TOGETHER 24 YEARS. DENIES DIFFCULTY PAYING UTLITIES OR OBTAINING FOOD. PATIENT STATED "I HAD BEEN ON THE GROUND FOR DAYS. I THINK IT WAS TO DARK FOR MY AND MOTHER IN [place] TO SEE ME LAYING THERE." PATIENT APPEARS TO HAVE RED ROMANO ON HER FACE AND POOR HYGIENE. APS CALLEDTiffany NYE FROM [facility] TO COME IN AND TALK TO THE PATIENT. INTAKE NUMBER [phone].
--- NOTE | 2025-06-10 10:02 | NUR ---
PT SITTING UP IN CHAIR AT THIS TIME, PT HAS N0 OCURRENT CONCERNS AND HAS CALL LIGHT IN REACH IF NEEDED. PT DENIES PAIN AND HAS NO SOB AT THIS TIME.
[2025-06-10] MEDS ORDERED: FLUTICASONE PRO16 GM NAS (10:21)
--- NOTE | 2025-06-10 10:21 | NUR ---
MED REC COMPLETE
--- NOTE | 2025-06-10 10:26 | NUR ---
UR CLINICAL REVIEW: MCG-PER MCG REVIEW MEETS INPT FOR PNEUMONIA WITH NEED FOR SUPPLEMENTAL OXYGEN AND MONITORING ODS [facility] INPT 06/08/25 @ 1939 ORDER MATCHES REG AUTH REQUEST FAXED TO [facility] FOR REVIEW DISCHARGE TO HOME WHEN STABLE 06/11/25 DC REVIEW
--- NOTE | 2025-06-10 11:00 | NUR ---
ZEINA HELPED ME GET HER ON THE SHOWER CHAIR AND WHEEL HER INTO THE BATHROOM. WASHED HER HAIR AND HER WHOLE BODY. NEW GOWN AND SOCKS AND NEW PUREWICK WAS PLACED ALSO A NEW TAPED ATTEND. PATIENT SET UP IN HER CHAIR FOR ALL HER MEALS.
--- NOTE | 2025-06-10 11:39 | NUR ---
PT WAS GIVEN A SHOWER AND TOLERATED WELL, PT RETURNED TO CHAIR WITH SITTER ALARM IN PLACE AND CALL LIGHT IN REACH, PT DID REQUEST A BREATHING TREATMENT, PT DOES NOT FEEL SOB AT THIS TIME. RT WAS CALLED AND WILL BE UP SOON. PT HAS NO OTHER CONCERNS AND HAS CALL LIGHT IN REACH IF NEEDED.
--- NOTE | 2025-06-10 11:53 | NUR ---
THIS RN HEARD BEDSIDE CPOX ALARM, THIS RN ENTERED PT ROOM AND FOUND PT BRUSHING HAIR WITH O2 NC ON FLOOR, PT CPOX READ 80 PERCENT AND THIS RN PLACE NC ON PT AND INCREASED O2 TO 4L UNTIL PT WAS AT 90 PERCENT O2 SAT, PT IS SITTING IN CHAIR WITH CALL LIGHT IN REACH AND RT IN ROOM CURRENTLY.
--- NOTE | 2025-06-10 12:34 | NUR ---
PHYSICAL THERAPY IN TO SEE PATIENT AND WALK.
--- NOTE | 2025-06-10 13:13 | NUR ---
INTO SPEAK WITH PATIENT. BOYFRIEND AT BEDSIDE. TALKED WITH PATIENT ABOUT GOING TO A SNF. PATIENT AGREEABLE DUE TO FALL. PATIENT CHOICE LETTER GIVEN. PATIENT WOULD LIKE CHART SENT TO [facility], [facility]. SHE PREFERS TO STAY IN [facility].
[2025-06-10] MEDS ORDERED: ACETAMINOPHEN 325 MG TAB PO PRN (13:15)
--- NOTE | 2025-06-10 13:15 | NUR ---
PT NOT AVAILABLE FOR VISIT. PROVIDED PRAYER.
--- NOTE | 2025-06-10 13:17 | NUR ---
PT SITTING UP IN BED WITH EYES CLOSED CHEST RISE EQUAL BILAT, PT O2 SAT WAS 86 WHILE SLEEPING THIS RN INCREASE O2 TO 3L NC PT CPOX READS 91 AT THIS TIME CALL LIGHT IN REACH AND IN ROOM.
--- NOTE | 2025-06-10 13:25 | NUR ---
CHART FAXED TO [facility], [facility], AND [facility].
[2025-06-10] MEDS ORDERED: predniSONE 20 MG TAB PO SCH (13:30)
--- NOTE | 2025-06-10 13:35 | NUR ---
PT CONTINUES TO HAVE INCREASED OXYGEN NEEDS, PT CURRENTLY ON 4L NC AT THIS TIME AT 88 O2 SAT, RT WAS CONTACTED ABOUT THE PT INCREASED OXYGEN NEEDS AND WILL SEE THE PT WHEN THEY CAN. PT HAS CALL LIGHT IN REACH WITH IN ROOM.
[2025-06-10] MEDS ORDERED: FUROSEMIDE 20 MG/2 ML VIAL IV ONE (13:45)
--- NOTE | 2025-06-10 13:54 | EKG ---
[facility] [address] [place] [address] Signed Normal sinus rhythm Rightward axis Low voltage QRS Cannot rule out Inferior infarct , age undetermined Abnormal ECG No previous ECGs available Confirmed by Beatriz Hernandez MD () on 06/10/2025 1:54:11 PM Electronically Signed By: BEATRIZ HERNANDEZ MD 06/10/25 1354 PATIENT NAME: ROCK MORALES Electrocardiogram DATE OF : 63 PHYSICIAN: BEATRIZ HERNANDEZ MD REPORT #: [id number] REPORT IS CONFIDENTIAL AND NOT TO BE RELEASED WITHOUT AUTHORIZATION
--- NOTE | 2025-06-10 15:00 | NUR ---
PT SITTIGN UP IN BED, PT REPOSITIONED AND PT TOLERATED WELL. PT SITTING UP IN BED WITH HOB ELEVATED TO INCREASE O2 SAT, PT HAS NO CURRENT CONCERNS AND HAS CALL LIGHT IN REACH AT THIS TIME.
--- NOTE | 2025-06-10 15:43 | NUR ---
PT LAYING IN BED AT THIS TIME WITH EEYS CLOSED CHEST RISE EQUAL BIALT, PT IS CURRENTLY SITTING UP IN BED ON TELE #7, PT HAS CALL LIGHT IN REACH AND CPOX IN PLACE.
--- NOTE | 2025-06-10 17:43 | NUR ---
PATIENT UP TO COMMODE WITH 1PA TO VOID. INCONTINENT OF URINE, ATTENDS CHANGED. PATIENT BACK TO CHAIR, 02 @ 3L, CHAIR ALARM IS ON.
--- NOTE | 2025-06-10 18:30 | NUR ---
PT SITTING UP IN CHAIR, PT WANTS TO STAY IN CHAIR UNTIL THEY ARE READY FOR BED, PT HAS NO CONCERNS AT THIS TIME AND HAS CALL LIGHT IN REACH
--- NOTE | 2025-06-10 19:31 | NUR ---
RECEIVED REPORT ON PT. PT UP IN CHAIR. CALL LIGHT WITH IN REACH. PT HAS NO NEEDS AT THIS TIME.
--- NOTE | 2025-06-10 21:41 | NUR ---
CALL LIGHT ANSWERED. 2PA WITH FWW TO BS TO VOID. STAFF ASSIST WITH IRVIN CARE. BACK TO BED, SILVIO FAIR. SpO2 UPON RETURNING TO BED 86% ON 3L/NC. PT ABLE TO RECOVER QUICKLY TO 92% WITH REST. PUREWICK AND ATTENDS PLACED AFTER IRVIN CARE. 2PA TO REPOSITION IN BED. BED ALARM FOR SAFETY. CALL LIGHT IN REACH.
--- NOTE | 2025-06-10 22:40 | NUR ---
PT REMOVED HER DRESSINGS ON LEFT LEG. WASHED BOTH WOUNDS WITH VASHE, PLACED IODOFLEX AND COVERED WITH GENTLE BORDER PINK FOAM. PT TOLERATED WELL.
--- NOTE | 2025-06-10 23:28 | NUR ---
PT REQUESTING A SNACK. PT GIVEN A SNACK. PT IN BED. CALL LIGHT WITH IN REACH. PT HAS NO FURTHER NEEDS AT THIS TIME.
[2025-06-11] VITALS (10 sets, daily range): BP systolic 137–148; BP diastolic 80–96
--- NOTE | 2025-06-11 00:11 | NUR ---
PT RESTING IN BED EYES CLOSED, PT AWAKENS WHEN I ENTER THE ROOM. PT HAS NO NEEDS. CALL LIGHT AND PERSONAL BELONGINGS WITH IN REACH.
--- NOTE | 2025-06-11 01:23 | NUR ---
CPOX ALARMING. PT REMOVED NASAL CANNULA. SpO2 85% ON RA. OXYGEN REPLACED. PT QUICKLY BACK TO 92% ON 3L/NC. PT DENIES SOB. VS OBTAINED. ASSISTED TO REPOSITION. SCHEDULED MEDS ADMIN. NO FURTHER NEEDS.
--- NOTE | 2025-06-11 03:12 | NUR ---
PT RESTING EYES CLOSED. CPOX ON, OX SAT 96% ON 4L/NC. CALL LIGHT WITH IN REACH.
--- NOTE | 2025-06-11 03:46 | NUR ---
CPOX ALARMING. OXYGEN REMOVED BY PT. SpO2 85% ON RA. NC REPLACED AT 3L/MIN. SpO2 LOW 90'S. PT REPORTS NECK PAIN. ASSISTED TO REPOSITION AND PROVIDED WARM COMPRESS. PT REPORTS RELIEF. RT IN FOR BREATHING TX. BED ALARM IN PLACE. CALL LIGHT IN REACH.
--- NOTE | 2025-06-11 04:44 | NUR ---
PT SITTING IN BED WATCHING TV AND SCROLLING ON HER TABLET. CALL LIGHT WITH IN REACH. NO FURTHER NEEDS AT THIS TIME.
[2025-06-11 05:19] LABS: BASOPHILS 0.5 % (0.1-1.2); EOSINOPHILS 0 % (0.7-5.8); LYMPHOCYTES 11.1 % (19.3-51.7); MCH 28.1 PG (25.6-32.2); MCHC 30.4 g/dL (32.2-35.5); MCV 92.4 fL (79.4-94.8); MONOCYTES 8.3 % (4.7-12.5); NEUTROPHILS 77.1 % (34.0-71.1); RBC 4.87 M/uL (3.93-5.22)
[2025-06-11 05:32] LABS: ALT (SGPT) 60.0 U/L (14-59); AST (SGOT) 45.0 U/L (15-37); GLOMERULAR FILTRATION RATE,EST 101.0 mL/min (>60); PROTEIN, TOTAL 6.6 g/dL (6.4-8.2); SMEAR REVIEW BLOOD SEE COMMENTS; UREA NITROGEN 20.0 mg/dL (7-18)
--- NOTE | 2025-06-11 05:58 | NUR ---
ASSESSMENT COMPLETE. PT SITTING IN BED WATCHING TV. CALL LIGHT WITH IN REACH. PT GIVEN COFFEE AND HAS NO FURTHR NEEDS.
--- NOTE | 2025-06-11 07:25 | NUR ---
VERBAL REPORT RECEIVED FROM KAYLEEN DENG. PT SITS UP IN BED, AWAKE AND ALERT ON IPAD.
--- NOTE | 2025-06-11 07:55 | NUR ---
Wound notes faxed to Salvador at [facility] as requested.
[2025-06-11] MEDS ORDERED: MAGNESIUM OXIDE 400 MG TABLET PO ONE (08:00)
[2025-06-11] MEDS ORDERED: FUROSEMIDE 40 MG/4 ML VIAL IV SCH (09:00)
--- NOTE | 2025-06-11 09:09 | NUR ---
PATIENT FINISHED BREAKFAST AND IS IN BED. ORAL SWAB PROVIDED FOR ORAL CARE, DONE BY PATIENT. OSCILLATORY PEP USED BY PATIENT. SERVER DEVELOPER'Dusty FAIRBANKS AND RODRIGO TOOK VITAL SIGNS AND I&O'S. CALL LIGHT WITHIN REACH. NO FURTHER NEEDS AT THIS TIME.
--- NOTE | 2025-06-11 09:20 | NUR ---
Attempted to see pt, she is working with PT.
--- NOTE | 2025-06-11 09:36 | NUR ---
PT NOT AVAILABLE FOR VISIT. PROVIDED PRAYER.
--- NOTE | 2025-06-11 10:14 | NUR ---
PT UP TO BSC, VOIDS CLEAR YELLOW URINE. PT LEAVES UNIT VIA WHEELCHAIR ON 4L O2 NC, ESCORTED BY IMAGING STAFF FOR PROCEDURE.
--- NOTE | 2025-06-11 10:49 | NUR ---
IMAGING BROUGHT PATIENT BACK TO ROOM AND ONTO BSC. THIS CAKE WRAPPER IN TO ASSIST SO IMAGING COULD LEAVE. PATIENT NOW BACK TO BED, 1PA. PATIENT RECONNECTED TO BEDSIDE PULSE OX. CALL LIGHT IN REACH. NO FURTHER NEEDS AT THIS TIME.
--- NOTE | 2025-06-11 10:57 | NUR ---
PT RESTS IN BED, AWAKE, DROWSY. CPOX IN PLACE, SPO2 95% ON 4L NC, TITRATED DOWN TO 3LPM. CALL LIGHT IN REACH. PT USES IPAD.
--- NOTE | 2025-06-11 11:17 | NUR ---
AMBER RN REPORTS PT OUT OF BED. PT FOUND IN BATHROOM IN THE DARK USING THE COMODE. DISCUSSED WITH PT SAFETY, FALL RISK AND USE OF THE CALL LIGHT. PT CONTINUOUS TO BE ORIENTED TO SELF, IS FORGETFULL AND DOES NOT KNOW HER OWN LIMITATIONS. PT ASSISTED BACK TO BED. RE-ORIENTED TO CALL LIGHT. PT ENCOURAGED TO USE CALL LIGHT. BED RAILS UP X4, BED ALARM ON. BELONGINGS IN REACH. CPOX IN PLACE, TELEMETRY IN PLACE. NO REQUESTS AT THIS TIME.
--- NOTE | 2025-06-11 12:10 | NUR ---
NOTED PT HR 130'S VIA TELEMETRY, VISIUAL CHECK OF PATIENT PERFORMED. PT ATTEMPTED TO GET OUT OF BED, DID NOT USE CALL LIGHT. PT RE-ORIENTED TO SITUATION. PT ASSISTED TO BSC. RE-INFORCED SAFETY EDUCATION AND USE OF CALL LIGHT TO HAVE ASSISTED TO GET UP. PT DOES NOT FOLLOWED DIRECTIONS WELL. PT BACK TO BED. DR. SANTIZO INTO SEE PT. PT MOVED TO ROOM 121, CLOSER TO NURSES STATION FOR BEHAVIOR AND FALL RISK. PT BELONGINGS MOVED TO ROOM 121. PT ORIENTED TO ROOM 121. CALL LIGHT AND BELONGINGS IN REACH. CPOX IN PLACE, 3LPM O2 INPLACE. PT RESTS IN BED. TO REQUESTS AT THIS TIME.
--- NOTE | 2025-06-11 13:11 | NUR ---
HOURLY ROUNDING. PATIENT IS SLEEPING AT THE MOMENT, WOKEN AND PROMPT FOR LUNCH. CALL LIGHT HAS BEEN PLACED WITHIN REACH
--- NOTE | 2025-06-11 13:52 | NUR ---
DC REVIEW: BARRIERS TO DC: PATIENT WILL REQUIRE PLACEMENT AT DISCHARGE. APS REPORT MADE DUE TO CONCERNS FOR PATIENT CARE. APS TO ASSESS PATIENT WHILE ADMITTED DISCHARGE TO SNF WHEN MEDICALLY STABLE ADD: AWAITING BED ACCEPTANCE NO ACTIONS REQUIRED
--- NOTE | 2025-06-11 14:01 | NUR ---
PATIENT WAS NAPPING IN BED UPON ENTRY. PATIENT USED BSC WITH 1PA. NOW SITTING UP IN BED EATING LUNCH. VITAL SIGNS AND I&O'S TAKEN. CALL LIGHT WITHIN REACH.
--- NOTE | 2025-06-11 14:20 | NUR ---
PATIENT FINISHED LUNCH, SITTING UP IN BED. EXTENSION COURSE COUNSELOR'S TIKI AND RODRIGO CHARTED NEW OUTPUT. PATIENT NEEDS REMINDED TO TAKE DEEP BREATHS AND KEEP OXYGEN IN NOSE, IT KEEPS DIPPING BELOW 90. PATIENT GOT A NEW GOWN. PATIENT REFUSES TO GET A NEW PUREWICK PLACED. IS VISITNG. CALL LIGHT WITHIN REACH.
--- NOTE | 2025-06-11 15:00 | NUR ---
In to speak with Rita. Friend is at the bedside. Pt stating she would like to go home. Friend encourages her to stay as she is wheezy at times. Discussed PT recommend a Nursing Home facility for rehab. Pt declines and again states she wants to go home. Pt again encouraged to wait until the DrTiffany is ready to discharge her. I spoke with PT. Pt does not have a good safety awareness and can be impulsive.
--- NOTE | 2025-06-11 15:39 | NUR ---
PT SITTING UP IN CHAIR, FAMILY PRESENT AT BEDSIDE. TELEMETRY LEADS FIXED AND RECORDING NOW. PT DENIES ANY NEEDS, CALL LIGHT WITHIN REACH. ALL PT CARE NEEDS MET.
[2025-06-11] MEDS ORDERED: IPRATROPIUM BROMIDE 2.5 ML VIAL INH SCH (16:00)
--- NOTE | 2025-06-11 17:59 | NUR ---
PT BACK TO BED FROM RECLINER, LEAVES RECLINER WITHOUT CALLING, CHAIR ALARM ON. THIS RN ASSIST PT TO BED. RAILS UPX 4, BED IN LOW POSITION AND LOCKED. BED ALARM ON. CALL LIGHT IN REACH. NO REQUESTS AT THIS TIME.
--- NOTE | 2025-06-11 18:07 | NUR ---
HOURLY ROUNDING. PATIENT SITTINGUP IN BED, REFILLED WATER CUP, PATIENT REQUESTED AN ORANGE JUICE. NO FURTHER REQUEST FROM PATIENT AT THIS TIME CALL LIGHT HAS BEEN PLACED WITHIN REACH
--- NOTE | 2025-06-11 19:30 | NUR ---
RECEIVED REPORT. PT RESTING IN BED. CALL LIGHT WITH IN REACH. PT HAS NO NEEDS AT THIS TIME.
--- NOTE | 2025-06-11 21:30 | NUR ---
CALL LIGHT ANSWERED. ASSISTED pt TO LOWER HOB. TELE REPLACED, pt REMOVED ALL LEADS. PRIMARY RN NOW IN ROOM.
--- NOTE | 2025-06-11 23:02 | NUR ---
PATIENT'S CPOX IS ALARMING. PATIENT DROPPED HER O2 TUBING. THIS SHEET FINISHER PLACE IT BACK TO HER NOSE.
--- NOTE | 2025-06-11 23:34 | NUR ---
PT RESTING EYES CLOSED. PT'S O2 SAT 94% ON 3L/NC. CALL LIGHT WITH IN REACH.
[2025-06-12] VITALS (12 sets, daily range): BP systolic 140–166; BP diastolic 92–105
--- NOTE | 2025-06-12 00:15 | NUR ---
ANSWERED BED ALARM, PT NEEDS TO GO TO THE BATHROOM. PT UP TO BEDSIDE COMMODE WITH 2PA WITH FWW. PT BACK TO BED. PERSONAL BELONGINGS AND CALL LIGHT WITH IN REACH. PT GIVEN ICE CHIPS. PT HAS NO FURTHER NEEDS AT THIS TIME.
--- NOTE | 2025-06-12 01:33 | NUR ---
PT PLAYING ON HER TABLET. VITALS COMPLETE. CALL LIGHT WITH IN REACH. PT HAS NO NEEDS AT THIS TIME.
--- NOTE | 2025-06-12 03:18 | NUR ---
PT RESTING EYES CLOSED. OXYGEN SAT 90% ON 3L/NC. CALL LIGHT WITH IN REACH.
--- NOTE | 2025-06-12 05:16 | NUR ---
PT UP TO BEDSIDE COMMODE WITH 2PA. PT C/O SOB WITH THIS ACTIVITY. PT BACK TO BED. PT GIVEN A PRN BREATHING TREATMENT BY RT. PT BACK TO RESTING IN BED. CALL LIGHT AND PERSONAL BELONGINGS WITH IN REACH. PT HAS NO FURTHER NEEDS.
[2025-06-12 05:43] LABS: BASOPHILS 0.4 % (0.1-1.2); EOSINOPHILS 0.1 % (0.7-5.8); LYMPHOCYTES 12.9 % (19.3-51.7); MCH 27.9 PG (25.6-32.2); MCHC 29.9 g/dL (32.2-35.5); MCV 93.4 fL (79.4-94.8); MONOCYTES 9.0 % (4.7-12.5); NEUTROPHILS 75.3 % (34.0-71.1); RBC 4.87 M/uL (3.93-5.22)
[2025-06-12 05:58] LABS: SMEAR REVIEW BLOOD SEE COMMENTS
[2025-06-12 06:01] LABS: ALT (SGPT) 63.0 U/L (14-59); AST (SGOT) 49.0 U/L (15-37); GLOMERULAR FILTRATION RATE,EST 99.0 mL/min (>60); PROTEIN, TOTAL 6.9 g/dL (6.4-8.2); UREA NITROGEN 20.0 mg/dL (7-18)
--- NOTE | 2025-06-12 07:14 | NUR ---
REPORT RECEIVED FROM LICENSED MARINE ENGINEER RN'S [place]. PATIENT IS LYING IN BED WITH HOB ELEVATED WITH EYES OPEN AND RESPIRATIONS ARE EVEN AND UNLABORED. CALL LIGHT AND PERSONAL BELONGINGS ARE WITHIN REACH.
[2025-06-12 07:28] LABS: ANTI-IGG C3D DIRECT NEGATIVE; ANTI-IGG C3D INDIRECT NEGATIVE; ANTI-IGG DIRECT NEGATIVE; ANTI-IGG INDIRECT NEGATIVE
[2025-06-12] MEDS ORDERED: BUDESONIDE 0.5 MG/2 ML VIAL INH SCH (08:00)
--- NOTE | 2025-06-12 08:03 | NUR ---
PATIENT IN CHAIR AT THIS TIME. MAINTENANCE REPAIRMAN CHARTED HOURLY ROUNDS. CALL LIGHT WITHIN REACH, NO FURTHER NEEDS.
--- NOTE | 2025-06-12 08:07 | NUR ---
IN TO ASSIST PATIENT TO BSC, 1PA PIVOT TRANSFER. PATIENT THEN TO CHAIR AFTER, 1PA PIVOT TANSRADHA. CHAIR ALARM ON. FRESH WATER GIVEN BROACHING MACHINE OPERATOR SAID DIET CAN GO BACK TO REG. SCAN IS DONE. CALL LIGHT IN REACH. NO FURTHER NEEDS AT THIS TIME
[2025-06-12] MEDS ORDERED: FUROSEMIDE 100 MG/10 ML VIAL IV SCH (09:00)
[2025-06-12] MEDS ORDERED: MAGNESIUM SULFATE 2 GM/50 ML BAG IV SCH (09:00)
--- NOTE | 2025-06-12 09:02 | NUR ---
PT SITTING UP IN CHAIR EATING BREAKFAST. NC SECURELY IN PLACE, RUNNING AT 3L. HI RT, ROUNDED ON PT AT THIS TIME. CPOX D/C AT THIS TIME. 0900 MEDICATIONS ADMINISTERED PER THE EMAR. VS TAKEN AND DOCUMENTED IN CHART. IV SITE FLUSHED WITH 10 ML SALINE AND MAGNESIUM SULFATE INFUSING PER THE EMAR. PT STATED NO FURTHER NEEDS, CALL LIGHT AND PERSONAL BELONGINGS ARE WITHIN REACH.
--- NOTE | 2025-06-12 09:57 | NUR ---
PATIENT IN BED AT THIS TIME. DIRECTOR OF REGIONAL SALES CHARTED I&O'S, KAYLEEN LING CHARTED VITALS. CALL LIGHT WITHIN REACH, NO FURTER NEEDS AT THIS TIME.
[2025-06-12 10:28] LABS: IRON BINDING CAPACITY TOTAL 356 ug/dL (240-450); IRON,SERUM OR PLASMA 88 ug/dL (28-170); TRANSFERRIN SATURATION 25 %sat (20-50)
[2025-06-12 10:50] LABS: HEPATITIS A ANTIBODY, IGM Negative (Negative); HEPATITIS C AB CIA INTERP High Pos (Negative); HEPATITIS C ANTIBODY CIA INDEX >11.00 IV (())
--- NOTE | 2025-06-12 10:51 | NUR ---
PT ASSISTED TO BSC AND VOIDED 100 ML PALE YELLOW URINE. FULL ASSESSMENT COMPLETE AT THIS TIME, DOCUMENTED IN CHART. PT ALERT AND ORIENTED X3, PT IS ON 3LNC. UPPER LOBES WITH EXPIRATORY WHEEZES AND CRACKLES BILATERALLY IN THE BASES. MAGNESIUM SULFATE CONTINUES TO INFUSE AT THIS TIME, PER THE EMAR. FAINT PEDAL PULSES BILATERALLY. 2+ PITTING EDEMA IN THE LLE AND 1+ PITTING EDEMA IN THE RLE. TINGLING REPORTED IN THE BILATERAL LOWER EXTREMITIES, PER THE PT. PT REPORTS 4/10 PAIN IN THE LUQ. PT IS NOT REQUESTING ANYTHING FOR PAIN. PT IS NOW LYING IN BED, WITH HOB ELEVATED. PT IS ON TELE #7. PT STATED NO FURTHER NEEDS AT THIS TIME; CALL LIGHT AND PERSONAL BELONGINGS WITHIN REACH.
--- NOTE | 2025-06-12 11:13 | NUR ---
PT UP IN CHAIR, WORKING WITH PHYSICAL THERAPY.
--- NOTE | 2025-06-12 11:25 | NUR ---
WORKING WITH PT, WILL RETURN TO SPEAK WITH PATIENT
--- NOTE | 2025-06-12 12:07 | NUR ---
PT SITTING UP IN CHAIR, EATING LUNCH. CALL LIGHT AND PERSONAL BELONGINGS WITHIN REACH.
--- NOTE | 2025-06-12 13:04 | NUR ---
PT IS SLEEPING IN BED, RR EVEN AND UNLABORED. CALL LIGHT AND PERSONAL BELONGINGS WITHIN REACH.
--- NOTE | 2025-06-12 14:08 | NUR ---
IN TO SPEAK WITH PATIENT ABOUT DC TO SNF. HER RESPONSE IS "WHY WOULD I WANT TO DO THAT?" REMINDED PATIENT THAT PT/OT THINK SHE NEEDS TO CONTINUE THERAPIES PRIOR TO RETURNING HOME DUE TO WEAKNESS. ASKED HER AGAIN IF SHE WOULD AGREE TO SNF, PATIENT CLOSES HER EYES AND DOES NOT ANSWER.
--- NOTE | 2025-06-12 14:23 | NUR ---
PATIENT IN BED AT THIS TIME. LEAF BLENDER CHARTED VITALS AND I&O'S. CALL LIGHT WITHIN REACH, NO FURTHER NEEDS.
--- NOTE | 2025-06-12 14:27 | NUR ---
PT CURRENTLY ON COMMODE. MARK IZQUIERDO, IS ASSISTING IN ROOM.
--- NOTE | 2025-06-12 15:03 | NUR ---
PT LAYING FLAT IN BED. PT RESPONDS TO VOICE, WITH EYES CLOSED. RR EVEN AND UNLABORED. THIS RN ELEVATED HEAD OF BED. PT IS ALERT AND ORIENTED TIMES 3, NOT ORIENTED TO EVENT. PT REMAINS ON 3LNC WITH EXPIRATORY WHEEZING AUSCULTATED THROUGHOUT LUNGS. IV SITE IS SALINE LOCKED, AND DRESSING REMAINS CLEAN, DRY AND INTACT. PT IS ON TELE #7 AND IS IN SINUS TACHYCARDIA. DRESSING TO THE LEFT CALF WITH DRAINAGE NOTED. 1400 MEDICATIONS ADMINISTERED PER THE EMAR. PT STATED NO FURTHER NEEDS AT THIS TIME. CALL LIGHT AND PERSONAL BELONGINGS WITHIN REACH.
[2025-06-12] MEDS ORDERED: PANTOPRAZOLE SODIUM 40 MG TABEC PO SCH (15:13)
[2025-06-12] MEDS ORDERED: OXYCODONE HCL 5 MG TAB PO PRN (15:15)
--- NOTE | 2025-06-12 15:15 | NUR ---
DR. SANTIZO NOTIFIED OF PATIENT PAIN RATED 7/10 IN THE LUQ. STATED HE WOULD PUT IN ORDERS NOW. MD ASKED THIS RN IF HER PAIN IS BURNING OR STABBING. THIS RN ASKED PATIENT AND THE PATIENT REPORTED "BOTH". MD WITH NO FURTHER QUESTIONS. STATED HE WOULD PUT IN ORDERS. CALL ENDED.
--- NOTE | 2025-06-12 15:17 | NUR ---
PATIENT WAS ASSISTED SBA TO THE BSC. PATIENT BRIEF WAS CHANGED AND PERICARE WAS DONE. PATIENT WATER WAS REFILLED. PATIENT IS LAYING IN BED. PATIENTS CALL LIGHT IS WITHIN REACH AND NO FURTHER NEEDS AT THIS TIME.
--- NOTE | 2025-06-12 16:24 | NUR ---
PT BACK IN BED AFTER BEING ASSISTED TO BR BY COUNTY AUDITOR'S ALAYNA. NASAL CANNULA SECURELY ON FACE. HI, RT IS AT BEDSIDE. CALL LIGHT AND PERSONAL BELONGINGS ARE WITHIN REACH.
--- NOTE | 2025-06-12 17:02 | NUR ---
PATIENT IS LYING IN BED WITH HOB ELEVATED. NC IN PLACE. PAIENT WITH DINNER TRAY SET UP IN FRONT OF THE PATIENT. MARK MCMILLAN IS IN THE ROOM AND CONNECTING PATIENT TO A CPOX. CALL LIGHT AND PERSONAL BELONGINGS ARE WITHIN REACH.
--- NOTE | 2025-06-12 18:41 | NUR ---
PATIENT IS SITTING ON THE EDGE OF BED. RESPIRATIONS ARE EVEN AND UNLABORED. NC IN PLACE. CPOX AT BEDSIDE. CALL LIGHT AND PERSONAL BELONGINGS ARE WITHIN REACH.
--- NOTE | 2025-06-12 19:48 | NUR ---
REPORT RECEIVED FROM DAY SHIFT RN. PT LYING IN BED ALERT AND ORIENTED. DENIES NEEDS. WHITE BOARD UPDATED. CALL LIGHT IN REACH.
--- NOTE | 2025-06-12 21:07 | NUR ---
EVENING ASSESSMENT COMPLETE. SCHEDULED MEDS ADMIN PER EMAR. PT REPORTS BACK PAIN 04/25. PRN FOR PAIN ADMIN PER EMAR. PT UP TO BSC WITH 1PA TO VOID. PT ABLE TO DO OWN IRVIN CARE. LINENS AND GOWN CHANGED. BACK TO BED, SILVIO FAIR. INCREASED RESPIRATIONS NOTED. SpO2 86% ON 2L/NC UPON RETURNING TO BED. PT DENIES SOB AT THIS TIME. EXPIRATORY WHEEZE AUSCULTATED THROUGHOUT. DRESSING ON LEFT CALF CHANGED PER WOUND CARE ORDERS. VS AND I&O OBTAINED. PT DENIES FURTHER NEEDS. BED ALARM FOR SAFETY. CALL LIGHT IN REACH.
--- NOTE | 2025-06-12 22:30 | NUR ---
SPOKE WITH MD TO CLARIFY TELE ORDER. ORDER DC'D PER MD.
--- NOTE | 2025-06-12 23:09 | NUR ---
CPOX ALARMING. PT REMOVED OXYGEN. SpO2 84% ON RA. OXYGEN REPLACED. SpO2 BACK TO 88% ON 3L/NC.
[2025-06-13] VITALS (11 sets, daily range): BP systolic 110–174; BP diastolic 40–109
--- NOTE | 2025-06-13 00:04 | NUR ---
Pt report received from KAYLEEN Stevenson
--- NOTE | 2025-06-13 00:22 | NUR ---
CALL LIGHT ANSWERED. PT NEEDED TO BOOSTED IN BED. DIRECTOR PHARMACEUTICAL AND KAYLEEN NATARAJAN BOOSTED PT IN BED. PT THEN STATED NEED TO USE BATHROOM. PT 1PA WITH FWW TO BSC. PT VOIDED AND ASSISTED BACK TO BED. PT STATES NO FURTHER NEEDS AT THIS TIME. CALL LIGHT WITHIN REACH AND BED ALARM ON.
[2025-06-13 02:23] LABS: HCV QNT BY NAAT (IU/ML) 1520000 IU/mL (()); HCV QNT BY NAAT (LOG IU/ML) 6.18 (()); HCV QNT BY NAAT INTERP Detected (Not Detected)
--- NOTE | 2025-06-13 02:28 | NUR ---
In with pt for med administration. Pt is A&O x3. Pt has been asking for snacks all evening (according to MARK Smith). Pt requested crackers at this time. Advised pt that she needs to try to get some sleep and that breakfast will come around [id number]. Pt verbalized understanding then asked if anything was going to happen to her dog. Encouraged pt to contact her s/o later this morning to find out what is happening with her dog. Side rails up x4, call light in reach.
[2025-06-13 05:25] LABS: BASOPHILS 0.4 % (0.1-1.2); EOSINOPHILS 0.1 % (0.7-5.8); LYMPHOCYTES 13.4 % (19.3-51.7); MCH 28.0 PG (25.6-32.2); MCHC 29.9 g/dL (32.2-35.5); MCV 93.5 fL (79.4-94.8); MONOCYTES 11.1 % (4.7-12.5); NEUTROPHILS 72.7 % (34.0-71.1); RBC 4.90 M/uL (3.93-5.22)
[2025-06-13 05:34] LABS: SMEAR REVIEW BLOOD SEE COMMENTS
[2025-06-13 05:47] LABS: ALT (SGPT) 66.0 U/L (14-59); AST (SGOT) 55.0 U/L (15-37); GLOMERULAR FILTRATION RATE,EST 99.0 mL/min (>60); PROTEIN, TOTAL 7.0 g/dL (6.4-8.2); UREA NITROGEN 17.0 mg/dL (7-18)
[2025-06-13 05:50] LABS: INR 1.22 (0.80-1.30); PROTIME 14.6 Sec (11.2-14.2)
--- NOTE | 2025-06-13 06:41 | NUR ---
Pt's VS were assessed immediately after pt got back to bed after activity (up to BS) around 0525 this morning. We obtained BP readings of 174/109 (125) left arm, and 179/128 (141) right arm. Reassessed BP at 0640 with a reading of 131/93 (99). But had shortness of breath after ambulating a short distance with the earlier VS.
--- NOTE | 2025-06-13 07:57 | NUR ---
Patient resting in bed, eyes closed, respirations even and non labored. RT at bedside administering a breathing treatment to patient. No current needs, personal supplies and call light within reach.
[2025-06-13] MEDS ORDERED: MAGNESIUM OXIDE 400 MG TABLET PO ONE (08:15)
[2025-06-13] MEDS ORDERED: FUROSEMIDE 100 MG/10 ML VIAL IV SCH (09:00)
--- NOTE | 2025-06-13 09:01 | NUR ---
Patient in bed resting, she wakes to verbal stimuli, notably drowsy with conversation, she quickly returns back to sleep after speaking to me. Patient is alert to self, she is unable to tell me where she is. Crushed medications to ensure patient does not choke, she tolerated well. Patient able to drink fluids with prompting, airway patent. Bed in low position, alarm intact. CPOX intact, sp02 92% on 3L oxygen per nc.
--- NOTE | 2025-06-13 09:36 | NUR ---
INTO SEE PATIENT. TALKED WITH HER ABOUT HOME OXYGEN. PATIENT CHOICE WAS [facility] FOR OXYGEN. WILL SEND ORDERS AT TIME OF DISCHARGE. PATIENT BOYFRIEND TO TAKE HER HOME AT TIME OF DISCHARGE. NO FUTHER CM NEEDS.
--- NOTE | 2025-06-13 09:49 | NUR ---
PATIENT WAS ON THE COMMODE, MARK IZQUIERDO AND I ASSISTED PATIENT BACK TO BED, GOT HER VITALS, CALL LIGHT WITH IN REACH AND NOTHING ELSE NEEDED AT THIS TIME.
[2025-06-13 10:21] LABS: HAPTOGLOBIN 68 mg/dL (30-200)
--- NOTE | 2025-06-13 10:50 | NUR ---
PATIENT IN BED AT THIS TIME. CABIN SERVICE AGENT ASSISTED PATIENT TO BEDSIDE COMMODE AND THEN BACK TO BED. KAYLEEN HERRERA CAME INTO PATIENT ROOM TO BOOST PATIENT. CALL LIGHT WITHIN REACH, NO FURTHER NEEDS.
--- NOTE | 2025-06-13 11:28 | NUR ---
PATIENT IN BED AT THIS TIME. PHOTOGRAPHY EDITOR PLACED NEW PUREWICK FOR PATIENT. CALL LIGHT WITHIN REACH, NO FURTHER NEEDS.
--- NOTE | 2025-06-13 12:11 | NUR ---
Patient sitting up in bed watching tv, no acute distress. Patient remains on 3L oxygen per nc, respirations non labored. Patient is voiding clear yellow urine via pure wick. No current needs, personal supplies and call light within reach.
[2025-06-13] MEDS ORDERED: METOPROLOL SUCCINATE 25 MG TABCR PO SCH (13:52)
--- NOTE | 2025-06-13 14:24 | NUR ---
In room to complete CHF education. Pt resting in bed with eyes closed. Education completed. Pt verbalied understanding. No questions at this time. AHA Get with the Guidelines Heart Failure eduction booklet left at bedside. Pt is aware if she has any other questions, I would come back to answer them.
--- NOTE | 2025-06-13 17:52 | NUR ---
PATIENT IN BED AT THIS TIME. FLY FISHING GUIDE CHARTED VITALS AND I&O'S. CALL LIGHT WITHIN REACH, NO FURTHER NEEDS AT THIS TIME.
--- NOTE | 2025-06-13 19:37 | NUR ---
REPORT RECEIVED FROM KAYLEEN FLEMING. PATIENT IN BED WITH HOB RAISED, EYES OPEN, CHEST RISE EVEN AND UNLABORED. CALL LIGHT IN REACH OF PATIENT.
--- NOTE | 2025-06-13 20:12 | NUR ---
PRIOR TO DISCHARGE, PLEASE PROVIDE PRESCRIPTIONS FOR BROVANA BID, PULMICORT BID, ALB Q2 PRN, DUONEB Q6 PRN.
--- NOTE | 2025-06-13 20:36 | NUR ---
PT NEEDED TOUSE BATHROOM. FIELD CROPS HARVEST MACHINE OPERATOR 1PA TO BSC. PT VOIDED AND ASSISTED BACK TO BED. VITALS AND I&O OBTAINED. PT BOOSTED IN BED WITH HELP OF KAYLEEN RAY. FIELD CROPS HARVEST MACHINE OPERATOR PLACED NEW PUREWICK. PT STATES NO FURTHER NEEDS AT THIS TIME. CALL LIGHT WITHIN REACH AND BED ALARM ON.
[2025-06-13 20:37] LABS: HCV QNT BY NAAT (IU/ML) 2020000 IU/mL (()); HCV QNT BY NAAT (LOG IU/ML) 6.31 (()); HCV QNT BY NAAT INTERP Detected (Not Detected)
--- NOTE | 2025-06-13 21:55 | NUR ---
PATIENT IN BED WITH HOB RAISED, EYES OPEN, CHEST RISE EVEN AND UNLABORED. ASSESMENT COMPELTED, SCHEDULED MEDICATIONS ADMINISTERED. PATIENT DENIES CONCERNS.
--- NOTE | 2025-06-13 23:56 | NUR ---
PATIENT IN BED, EYES CLOSED, CHEST RISE EVEN AND UNLABORED. CALL LIGHT AND PERSONAL BELONGINGS IN REACH OF PATIENT. NO APPARENT NEEDS NOTED AT THIS TIME.
[2025-06-14] VITALS (10 sets, daily range): BP systolic 114–156; BP diastolic 74–96
--- NOTE | 2025-06-14 02:22 | NUR ---
PATIENT IN BED, EYES CLOSED, CHEST RISE EVEN AND UNLABORED. CALL LIGHT AND PERSONAL BELONGINGS IN REACH OF PATIENT. NO APPARENT NEEDS NOTED AT THIS TIME.
--- NOTE | 2025-06-14 04:22 | NUR ---
PATIENT IN BED WITH HOB RAISED, EYES CLOSED, CHEST RISE EVEN AND UNLABORED. CPOX IN PLACE, OXYGEN IN PLACE. CALL LIGHT AND PERSONAL BELONGINGS IN REACH OF PATIENT. NO APPARENT NEEDS NOTED AT THIS TIME.
[2025-06-14 05:39] LABS: BASOPHILS 0.3 % (0.1-1.2); EOSINOPHILS 0.2 % (0.7-5.8); LYMPHOCYTES 18.9 % (19.3-51.7); MCH 28.3 PG (25.6-32.2); MCHC 29.7 g/dL (32.2-35.5); MCV 95.2 fL (79.4-94.8); MONOCYTES 10.7 % (4.7-12.5); NEUTROPHILS 67.8 % (34.0-71.1); RBC 4.59 M/uL (3.93-5.22)
[2025-06-14 05:53] LABS: SMEAR REVIEW BLOOD SEE COMMENTS
--- NOTE | 2025-06-14 05:56 | NUR ---
PATIENT IN BED, EYES CLOSED, CHEST RISE EVEN AND UNLBAORED. SCHEDULED MEDICATION, VITAL SINGS, AND MEWS COMPLETE. PATIENT REPORTS SHE IS TO TIRED TO STAND FOR DAILY WEIGHT AT THIS TIME. CALL LIGHT AND PERSONAL BELONGINGS IN REACH OF PATIENT. PATIENT DENIES CONCERNS.
[2025-06-14 05:57] LABS: ALT (SGPT) 61.0 U/L (14-59); AST (SGOT) 49.0 U/L (15-37); GLOMERULAR FILTRATION RATE,EST 102.0 mL/min (>60); PROTEIN, TOTAL 6.4 g/dL (6.4-8.2); UREA NITROGEN 17.0 mg/dL (7-18)
--- NOTE | 2025-06-14 06:43 | NUR ---
PATIENT ASSISTED TO COMMODE AND BACK TO BED, WEIGHT OBTAINED. PURE WICK DISCONTINUED PATIENT IS ABLE TO USE BEDSIDE COMMODE. PATIENT DENIES CONCERNS AT THIS TIME. BED ALARM ON, CALL LIGHT AND PERSONAL BELONGINGS IN REACH OF PATIENT.
--- NOTE | 2025-06-14 07:30 | NUR ---
Patient awake in bed watching tv, no acute distress. Patient remains on 3L oxygen per nc, respirations non labored, sp02 95%. Patient denies needs at this time.
[2025-06-14] MEDS ORDERED: acetaZOLAMIDE 250 MG TAB PO ONE (08:00)
[2025-06-14] MEDS ORDERED: FUROSEMIDE 100 MG/10 ML VIAL IV SCH (09:00)
[2025-06-14] MEDS ORDERED: SERTRALINE HCL 100 MG TAB PO SCH (09:00)
[2025-06-14] MEDS ORDERED: MAGNESIUM OXIDE 400 MG TABLET PO ONE (09:00)
--- NOTE | 2025-06-14 09:21 | NUR ---
INTO SEE PATIENT. PATIENT WITH PRIMARY RN AND BOX TOE CUTTER. PATIENT STILL GOING HOME WITH BOYFRIEND WHEN MEDICALLY CLEARED FOR DISCHARGE. PLANS TO SEND OXYGEN REFERRAL TO [facility] EM[facility]MENT AT TIME OF DISCHARGE.
--- NOTE | 2025-06-14 11:04 | NUR ---
PT NOT AVAILABLE FOR VISIT. PROVIDED PRAYER.
--- NOTE | 2025-06-14 11:09 | NUR ---
PATIENT WAS IN BED AT THIS TIME, CORRESPONDENCE SECTION SUPERVISOR CHARTED VITALS AND I&O'S, GOT PATIENT UP AND ON THE COMMODE, CHANGED HER BREIF, THEN TO THE CHAIR, CHANGED HER GOWN, AND LINENS. AIRED UP HER WAFFLE MATTRESS, EMPTIED HER PUREWICK, WASHED HER FACE AND DID AM CARE, PATIENT REFUSED ORAL CARE. THEN BACK TO THE COMMODE, CHANGED BREIF AGAIN, PUT A NEW PUREWICK IN AND TURNED IT ON. PUT HER BACK TO BED CAUSE SHE WANTED TO NAP AND REFUSED TO STAY IN THE CHAIR. CORRESPONDENCE SECTION SUPERVISOR CLEANED HER ROOM UP AND GOT PATIENT FRESH ICE WATER. CALL LIGHT WITH IN REACH AND NOTHING ELSE NEEDED AT THIS TIME.
--- NOTE | 2025-06-14 11:22 | NUR ---
LAB CALLED FOR CLARIFICATION ON THE FLOW CYTOLOGY TESTING, GIVEN 3 OPTIONS: B-[id number], [id number] OR LEUKEMIA/LYMPHOMA. PER MD, ORDER FOR LEUKEMIA/LYMPHOMA. LAB NOTIFIED AND THEY WILL PROCESS.
--- NOTE | 2025-06-14 14:18 | NUR ---
PATIENT IS IN BED AT THIS TIME, RAND CEMENTER CHARTED VITALS AND I&O'S, EMPTIED PUREWICK, CALL LIGHT WITH IN REACH AND NOTHING ELSE NEEDED AT THIS TIME.
--- NOTE | 2025-06-14 14:51 | NUR ---
Patient resting in bed, eyes closed, respirations even and non labored. SPO2 93% on 3L oxygen per nc. Bed alarm intact.
[2025-06-14] MEDS ORDERED: ALBUTEROL/IPRATROPIUM 3 ML NEB INH SCH (16:00)
--- NOTE | 2025-06-14 19:45 | NUR ---
awake, sitting up position in bed. O2 3LNC, not chronic, CPOX on at bedside keep sats 88-92%, WNL at this time. Cooperative with assessments. Lungs with exp wheezing and insp crackles t/o, SOB with exertion noted. multiple bruising areas arms, knee areas, Allevyn LE. bruised and black colored areas toes. Redness under breast area, lower abd w bullous straie , redness under R pannus worse than L. IV SL patent. Purewick in place, changed., draining dark yellow urine. c/o back and abd pain, medicated with Tylenol. Tolerating fluids well, Daily weight and on Lasix therapy. Got neb treatment earlier, saran SOB but sob noted when pt tried to reposition self in bed. Flat affect, alert and oriented to all
[2025-06-14] MEDS ORDERED: BUDESONIDE 0.5 MG/2 ML VIAL INH SCH (20:00)
[2025-06-14] MEDS ORDERED: SPIRONOLACTONE 25 MG TAB PO SCH (21:00)
--- NOTE | 2025-06-14 21:05 | NUR ---
SCRAP IRON CUTTER OBTAINED VITALS AND I&O. PUREWICK CANNISTER EMPTIED. PT STATES NO NEEDS AT THIS TIME. CALL LIGHT WITHIN REACH.
--- NOTE | 2025-06-14 22:23 | NUR ---
Resting, opens eyes easily, coop with eye oint, conjuctive pinkish redmuch improved, scant amount of drainage, . Alarms on
[2025-06-15] VITALS (9 sets, daily range): BP systolic 120–141; BP diastolic 65–77
--- NOTE | 2025-06-15 00:26 | NUR ---
Resting, eyes closed, hob elevated, O2 3LNC in place, CPOX on at bedside sats 93%, no s/sx distress. purewick in plce, edematous LE elevated. Bed alarm in place
--- NOTE | 2025-06-15 02:00 | NUR ---
Awakens easily, ointment ot eyes. scant amount of yellow discharge. sclera pinkish red and conjuctiva still red. R eye more protruding than L. O2 in place 3LNC, sats 93% CPOX lexi t bedside. purewick changed at this time. draining orange colored QS urine. Goes back to bed right away. Alarms in place
--- NOTE | 2025-06-15 04:02 | NUR ---
RESTING, EYES CLOSED, NO S/SX DITRESS, O2 IN PLACE, CPOX SATS WNL. PUREWICK IN PLACE, ALARMS IN PLACE
[2025-06-15 05:42] LABS: BASOPHILS 0.4 % (0.1-1.2); EOSINOPHILS 0.1 % (0.7-5.8); LYMPHOCYTES 19.3 % (19.3-51.7); MCH 28.5 PG (25.6-32.2); MCHC 30.1 g/dL (32.2-35.5); MCV 94.7 fL (79.4-94.8); MONOCYTES 9.2 % (4.7-12.5); NEUTROPHILS 66.9 % (34.0-71.1); RBC 4.35 M/uL (3.93-5.22)
[2025-06-15 06:00] LABS: ALT (SGPT) 56.0 U/L (14-59); AST (SGOT) 46.0 U/L (15-37); GLOMERULAR FILTRATION RATE,EST 97.0 mL/min (>60); PROTEIN, TOTAL 6.3 g/dL (6.4-8.2); UREA NITROGEN 22.0 mg/dL (7-18)
--- NOTE | 2025-06-15 06:04 | NUR ---
ON 3L O2 NC, CPOX ON AT BEDSIDE SATS 93%. NO S/SX DISTRESS, OPENS EYES BRIEFLY FOR EYE OINTMENT, NO CHANGES FORM EARLIER. ABD LARGE BRUISING AND REDNESS NO CHANGES. PUREWICK IN PLACE DRAINING SMALL AMOUNT OF ORANGE-TEA COLORED URINE. LE ELEVATED, BED ALRM IN PLACE.
[2025-06-15] MEDS ORDERED: MAGNESIUM OXIDE 400 MG TABLET PO ONE (07:45)
[2025-06-15] MEDS ORDERED: POTASSIUM BICARBONATE/CIT AC 20 MEQ TABEF PO ONE (07:45)
[2025-06-15] MEDS ORDERED: ALBUTEROL/IPRATROPIUM 3 ML NEB INH SCH (08:00)
--- NOTE | 2025-06-15 10:12 | NUR ---
Patient sitting up in bed on phone, no acute distress. Patient is on 3L nc, sp02 89%, pt reports intermittent shortness of breath. Patient close to nurses station, call light within reach.
--- NOTE | 2025-06-15 10:35 | NUR ---
PT SITTING UP IN BED, TV OFF. PT A LITTLE CONFUSED, AND VERY HARD OF HEARING. GOT PT FRESH COFFEE-DECAF, AND CLEANED UP HER ROOM. CALL LIGHT WITHIN REACH, ALSO REEDUCATED PT ON HOW TO CALL NURSE.
[2025-06-15] MEDS ORDERED: FUROSEMIDE 20 MG/2 ML VIAL IV ONE (13:00)
--- NOTE | 2025-06-15 14:14 | NUR ---
PT IN BED SITTING UP, VISITOR IN ROOM, BUT LEFT ABOUT 5 MINUTES INTO ME BEING IN THE ROOM. PT TOLD VISITOR SHE DOES NOT "KNOW ANYTHING ABOUT WHY I AM HERE". CHANGED PT, SHE REPORTED BEING WET WITH URINE. CALL LIGHT WITHIN REACH. GOT PT FRESH ICE WATER IN ROOM.
--- NOTE | 2025-06-15 14:49 | NUR ---
Patient incontinent of urine, pure wick notably leaking. Patient's brief changed, mary care done. Patient assisted to bedside commode then back to bed. Standing weight done at this time. Patient awake, alert to self and place, patient pleasant with cares. Warm blanket provided, call light within reach.
--- NOTE | 2025-06-15 14:52 | NUR ---
PT'S PUREWICK WAS NOT WORKING - ENTIRE BED WAS WET. THIS JUVENILE JUSTICE OFFICER AND RN CHANGED BED, WEIGHED PT, AND HAD HER SIT ON THE COMMODE AND TRY TO HAVE A BOWEL MOVEMENT. PT URINATED BUT DID NOT HAVE A BM. CHANGED LINENS, EMPTIED COMMODE, AND RETURNED PT TP CLEAN BED IN NEW GOWN. CALL LIGHT WITHIN REACH AND PROVIDED EDUCATION BATTERY CONTAINER TESTER ALUMINUM LIGHT. PUREWICK IN PLACE, NEW [employer] Bonna-[employer]ela TechnologiesWICK.
--- NOTE | 2025-06-15 16:28 | NUR ---
CHECKED PUREWICK STATUS, EARLIER IT HAD NOT BEEN WORKING - IT IS CURRENTLY WORKING. EMPTIED URINE CONTAINER, RECORDED IN I/O SHEET ON BATHROOM DOOR. PT HAS FRESH ICE WATER AND JUICES NEXT TO BED. EDUCATED PT TRANSITION LEAD LIGHT USAGE AGAIN. LIGHTS OUT, TV OFF, PT RESTING BUT NOT ASLEEP. CALL LIGHT WITHIN REACH.
--- NOTE | 2025-06-15 18:17 | NUR ---
PT RESTING IN BED, HEAD OF BED AT ABOUT 40 DEGREE ANGLE. LIGHTS OUT AND BLINDS DRAWN. PT REPORTS FEELING "GOOD" BUT "TIRED". TV OFF AND NO VISITORS IN ROOM. PUREWICK STILL WORKING WELL, PT DRY AND CALL LIGHT NEAR PT'S HAND ON HER BED.
--- NOTE | 2025-06-15 19:10 | NUR ---
Resting, eyes closed, no s/s distress. O2 3LNC in place, CPOX on at bedside, pure wick in place. LE elevated
--- NOTE | 2025-06-15 20:14 | NUR ---
PATIENT IS ASLEEP IN BED WITH HEAD SLIGHTLY ELEVATED. NASAL CANNULA IS PROPERLY PLACED. CALL LIGHT WITHIN REACH.
--- NOTE | 2025-06-15 20:28 | NUR ---
PATIENT IS LAYING IN BED. MARK WALLACE FOUND PATIENTS GLASSES AND GOT HER ARTIE CRACKERS AND SUGAR FREE VANILLA PUDDING. PUREWICK DRAIN WAS EMPTIED. NO FURTHER NEEDS AT THIS TIME AND CALL LIGHT WITHIN REACH.
--- NOTE | 2025-06-15 21:18 | NUR ---
PATIENT LAYING IN BED. FINISHED ALL OF ARTIE CRACKER AND SUGAR FREE PUDDING SNACK. VITALS AND I&O'S TAKEN. NO FURTHER NEEDS AT THIS TIME. CALL LIGHT WITHIN REACH.
--- NOTE | 2025-06-15 21:50 | NUR ---
Pt awake, more alert , no c/o pain. On 3LNC at this time, cpox at bedside, sats 93%. Denies c/o SOB with exertion, repositioned w/o help, tolerated very well. Lungs clear, dim at bases much improved, no wheezing. abd very large no hcanges. soft, non tender, APOLINAR. Red hue on chest and abd present. much better redness under breast and pannus. Bruised arms, knees and legs much improved. allevyn to R inner lower leg. Edema to LE improved, elevated. Allevyn to buttocks area intact. Has purewick, patent draining much better coloring orange colored urine. SL patent. Pt given CHF booklet as she was asking many questions and wanted to know more after I tried to explain. Was looking at Hep C inofrmation via phone. her questions were answered some to her satisfaction some she is unable to comprehend where she may have gotten Hep C and unable to comprehend why she has CHF. some questions were better answered to her satisfaction after reading CHF booklet. calm, cooperative.
--- NOTE | 2025-06-15 23:43 | NUR ---
Resting, eyes closed, on 3LNC CPOX on at bedside, purewick in place. no s/sx distress
[2025-06-16] VITALS (10 sets, daily range): BP systolic 129–166; BP diastolic 67–86
--- NOTE | 2025-06-16 02:43 | NUR ---
Awakens easily, warm towel to eyes prior to applying ointment, no dischrge noted. sclera and conjuctivae still red. Bulging area lateral top R eyelid still w/o changes. denies any visual changes. on 3LNC, cpox on at bedside, sats 92%. pure wick changed. cooperative. Redness of back and frontal area no changes
[2025-06-16 05:16] LABS: BASOPHILS 0.3 % (0.1-1.2); EOSINOPHILS 1.1 % (0.7-5.8); LYMPHOCYTES 28.3 % (19.3-51.7); MCH 28.1 PG (25.6-32.2); MCHC 29.9 g/dL (32.2-35.5); MCV 94.2 fL (79.4-94.8); MONOCYTES 8.6 % (4.7-12.5); NEUTROPHILS 58.4 % (34.0-71.1); RBC 4.48 M/uL (3.93-5.22)
[2025-06-16 05:30] LABS: ALT (SGPT) 54.0 U/L (14-59); AST (SGOT) 59.0 U/L (15-37); GLOMERULAR FILTRATION RATE,EST 79.0 mL/min (>60); PROTEIN, TOTAL 6.0 g/dL (6.4-8.2); UREA NITROGEN 17.0 mg/dL (7-18)
--- NOTE | 2025-06-16 05:38 | NUR ---
Awakens easily, on 3LNC not chronic prior to hosp. CPOX lexi t bedside, sats 94%. lungs clear bilat, redness of back and chest no changes, no changes redness uner breast and pannus area. abd large edematous, Bruising arms and knees areas healing. SL patent. edema to LE improveing, elevated.Pure wick in place, draining orange/light delta colored urine. Declined to get up for daily standing weight at this time. "They going to get me up to the chair for meals" pt stated. Charge nurse notified and will notify incoming RN. Bed alrms in place, helped with repositioning
--- NOTE | 2025-06-16 07:51 | NUR ---
PT RESTING SOUNDLY AT TIME OF SHIFT REPORT, LEFT UNDISTURBED. H20 AND CALL LIGHT IN REACH.
[2025-06-16] MEDS ORDERED: FUROSEMIDE 100 MG/10 ML VIAL IV SCH (09:00)
[2025-06-16] MEDS ORDERED: MAGNESIUM SULFATE 2 GM/50 ML BAG IV SCH (09:30)
[2025-06-16] MEDS ORDERED: POTASSIUM BICARBONATE/CIT AC 20 MEQ TABEF PO ONE (09:45)
[2025-06-16] MEDS ORDERED: POTASSIUM CHLORIDE 10 MEQ TABCR PO ONE (10:15)
--- NOTE | 2025-06-16 10:33 | NUR ---
PT EATS BREAKFAST IN BED THEM UP TO BSC USING FWW SBA. PT RETURNS TO BED TO REST. PURWIK IN PLACE DUE TO COPIOUS AMOUNTS OF URINE DUE TO LASIX ADMINISTRATION. CALL LIGHT IN HAND
[2025-06-16] MEDS ORDERED: SENNOSIDES/DOCUSATE 1 EA TAB PO SCH (10:39)
[2025-06-16] MEDS ORDERED: MICONAZOLE NITRATE 1 EA BTL TOP SCH (10:41)
--- NOTE | 2025-06-16 11:59 | NUR ---
PT CONTINUES TO PUT OUT COPIOUS AMOUNTS OF URINE. STATES HER STOMACH IS A LITTLE UPSET TODAY AND SHE WANTS TO SLEEP. NO EMESIS. PT AWAKENED FOR BREATHING TREATMENTS RETURNS TO RESTING EYES CLOSED
[2025-06-16] MEDS ORDERED: IPRATROPIUM BROMIDE 2.5 ML VIAL INH SCH (12:00)
--- NOTE | 2025-06-16 13:02 | NUR ---
PT RESTING EYES CLOSED AT TIME NOON MEAL WAS SERVED. WOKE HER AND ENCOURAGED HER TO EAT SHE STATES SHE DOESN'T LIKE TURKEY AND MASHED POTATOES. BOX LUNCH PROVIDED HOWEVER PT IS CONTINUEING TO REST EYES CLOSED REFUSING TO EAT AT THIS TIME.
--- NOTE | 2025-06-16 14:52 | NUR ---
PT WAKES UP WHEN DIONY ARRIVES VISITS ACTIVELY AND EATS HER LUNCH THEN RETURNS TO RESTING EYES CLOSED WHEN THEY LEAVE
--- NOTE | 2025-06-16 16:50 | NUR ---
PT CONTINUES RESTING EYES CLOSED
--- NOTE | 2025-06-16 17:52 | NUR ---
PT AWAKE NOW SITTING UP IN BED WITH EVENING MEAL. STATES SHE FEELS MUCH BETTER AND DOESN'T UNDERSTAND WHY SHE WAS SO TIRED TODAY.
--- NOTE | 2025-06-16 18:04 | NUR ---
PATIENT SITTING UP IN BED AT THIS TIME. VITALS AND I&O'S DONE AND CHARTED. CALL LIGHT IN REACH. NO FURTHER NEEDS AT THIS TIME.
--- NOTE | 2025-06-16 19:26 | NUR ---
REPORT RECEIVED FROM KAYLEEN CARRASCO. PATIENT RESTING IN BED, RESPIRATIONS EVEN AND UNLABORED. NC IN PLACE AT 3L. NO NEEDS IDENTIFIED, CALL LIGHT IN REACH.
[2025-06-16] MEDS ORDERED: BUDESONIDE 0.5 MG/2 ML VIAL INH SCH (20:00)
--- NOTE | 2025-06-16 21:38 | NUR ---
PATIENT RESTING IN BED COMFORTABLY, ASSESSMENT COMPLETED, SCHEDULED MEDICATIONS GIVEN PER ORDER. NC IN PLACE AT 3 L. RESPIRATIONS EVEN AND UNLABORED, UPPER LUNGS BILATERALLY WITH EXPIRATORY WHEEZES, DIMINISHED BILATERALLY IN THE BASES. GIVEN SNACK PER REQUEST. PATIENT DENIES ANY NEEDS, CALL LIGHT IN REACH.
--- NOTE | 2025-06-16 22:59 | NUR ---
ROUNDED ON PATIENT, PATIENT RESTING WITH EYES CLOSED, NC IN PLACE AT 3L. RESPIRATIONS EVEN AND UNLABORED. CPOX AT BEDSIDE. NO NEEDS IDENTIFIED, CALL LIGHT IN REACH.
[2025-06-17] VITALS (9 sets, daily range): BP systolic 108–144; BP diastolic 73–81
--- NOTE | 2025-06-17 00:16 | NUR ---
ROUNDED ON PATIENT, PATIENT RESTING WITH EYES CLOSED, RESPIRATIONS EVEN AND UNLABORED, NC IN PLACE AT 3L. CPOX AT BEDSIDE, NO NEEDS IDENTIFIED,CALL LIGHT IN REACH
--- NOTE | 2025-06-17 02:41 | NUR ---
SCHEDULED MED GIVEN TO PATIENT PER ORDER. PATIENT WOKE TO RN ENTERING ROOM, RESPIRATIONS EVEN AND UNLABORED. NC IN PLACE AT 3L. PURWICK CHANGED, PERICARE PROVIDED, CHUX AND BRIEF CHANGED D/T BEING SOILED. PATIENT DENIES ANY NEEDS, CALL LIGHT IN REACH
--- NOTE | 2025-06-17 04:34 | NUR ---
ROUNDED ON PATIENT, PATIENT IS RESTING WITH EYES CLOSED, RESPIRATIONS EVEN AND UNLABORED, NC IN PLACE AT 3L. NO NEEDS IDENTIFIED. CALL LIGHT IN REACH
--- NOTE | 2025-06-17 06:46 | NUR ---
ROUNDED ON PATIENT, LUNG SOUNDS AUSCULTATED. DIMINISHED THROUGHOUT. PATIENT RESTING WITH EYES CLOSED, RESPIRATIONS EVEN AND UNLABORED. NC IN PLACE AT 3L. NO NEEDS IDENTIFIED, CALL LIGHT IN REACH
--- NOTE | 2025-06-17 07:14 | NUR ---
PT RESTING EYES CLOSED AT TIME OF SHIFT REPORT, LEFT UNDISTURBED. CALL LIGHT AND FRESH H20 AT BEDSIDE.
[2025-06-17 07:36] LABS: BASOPHILS 0.6 % (0.1-1.2); EOSINOPHILS 1.2 % (0.7-5.8); LYMPHOCYTES 24.4 % (19.3-51.7); MCH 28.5 PG (25.6-32.2); MCHC 30.6 g/dL (32.2-35.5); MCV 93.1 fL (79.4-94.8); MONOCYTES 9.9 % (4.7-12.5); NEUTROPHILS 62.2 % (34.0-71.1); RBC 4.66 M/uL (3.93-5.22)
[2025-06-17 07:49] LABS: ALT (SGPT) 45.0 U/L (14-59); AST (SGOT) 50.0 U/L (15-37); GLOMERULAR FILTRATION RATE,EST 103.0 mL/min (>60); PROTEIN, TOTAL 6.2 g/dL (6.4-8.2); UREA NITROGEN 15.0 mg/dL (7-18)
--- NOTE | 2025-06-17 08:46 | NUR ---
PT AWAKENED FOR MORNING MEAL RESTING EYES CLOSED. DECLINES TO MOVE UP IN BED MEAL IS LEFT AT BEDSIDE.
[2025-06-17] MEDS ORDERED: POTASSIUM CHLORIDE 10 MEQ TABCR PO SCH (09:15)
[2025-06-17] MEDS ORDERED: MAGNESIUM SULFATE 2 GM/50 ML BAG IV SCH (09:15)
--- NOTE | 2025-06-17 09:35 | NUR ---
PT CONTINUES RESTING IN BED HAS NOT EATEN MORNING MEAL STATES SHE ISN'T READY. HOLDING AM MEDS TO GIVE WITH FOOD PT VERBALIZES UNDERSTAINDING STATES SHE WILL EAT PRETTY SOON
--- NOTE | 2025-06-17 09:40 | NUR ---
HOURLY ROUNDING. PATIENT IS TIRED THIS MORNING, NO TEATING BREAKFEAST NURSE HAS BEEN NOTIFIED. BREAKFEAST TRAY HAS BEEN LEFT FOR JUST IN CASE
--- NOTE | 2025-06-17 12:45 | NUR ---
R/T AND P/T IN TO WORK WITH PT. SHE IS UP TO THE TOILET STAFF ARE PRESENT
--- NOTE | 2025-06-17 13:00 | NUR ---
DR ESCOBEDO IN TO SEE PT SHE IS UP IN THE CHAIR WITH NOON MEAL PLAN GOING FORWARD DISCUSSED
--- NOTE | 2025-06-17 13:22 | NUR ---
HOURLY ROUNDING. PATIENT DIDN;T EAT MUCH, SHE MENTIONED WANTING TO GET BACK IN BED, SHE HAS BEEN TRANSFERRED BACK TO BED, NURSE HAS BEEN NOTIFIED
--- NOTE | 2025-06-17 13:58 | NUR ---
PT REMAINS UP IN THE CHAIR VISITOR IS PRESENT
--- NOTE | 2025-06-17 16:02 | NUR ---
PT BACK TO RESTING IN BED EYES CLOSED
--- NOTE | 2025-06-17 16:52 | NUR ---
HOURLY ROUNDING. PATIENT IS SLEEPING, NO REQUEST AT THIS TIME. CALL LIGHT HAS BEEN PLACED WITHIN REACH
--- NOTE | 2025-06-17 17:54 | NUR ---
PT AWAKE SITTING UP IN BED ATE MOST OF EVENING MEAL DENIES NEEDS
--- NOTE | 2025-06-17 19:42 | NUR ---
REPORT RECEIVED FROM LUNA BEYER. PT LAYING IN BED WITH CALL LIGHT WITHIN REACH. NO REQUESTS AT THIS TIME.
--- NOTE | 2025-06-17 20:01 | NUR ---
CALL LIGHT ANSWERED. pt REQUESTS TO HAVE CURTAIN SHUT. BED ALARM SET. OXYGEN IN NARES. CPOX ON. CALL LIGHT IN REACH.
--- NOTE | 2025-06-17 22:03 | NUR ---
IRVIN CARE DONE. NEW PUREWICK PLACED.
--- NOTE | 2025-06-17 22:55 | NUR ---
CPOX ALARMING, SPO2 86% ON RA, OXYGEN OUT OF NARES. REAPPLIED. SPO2 INCREASES TO WNL. pt CLOSES EYES. BED ALARM ON.
--- NOTE | 2025-06-17 23:05 | NUR ---
PT RESTING IN BED WITH EYES CLOSED AND RESPIRATIONS EVEN AND UNLABORED. O2 SAT 92% ON CPOX. CALL LIGHT WITHIN REACH.
--- NOTE | 2025-06-17 23:43 | NUR ---
PT RESTING IN BED WITH EYES CLOSED AND RESPIRATIONS EVEN AND UNLABORED. CALL LIGHT WITHIN REACH.
[2025-06-18] VITALS (7 sets, daily range): BP systolic 109–131; BP diastolic 64–73
--- NOTE | 2025-06-18 00:44 | NUR ---
PT RESTING IN BED WITH EYES CLOSED AND RESPIRATIONS EVEN AND UNLABORED. O2 SAT 92% VIA CPOX ON 3L PER NC. CALL LIGHT WITHIN REACH.
--- NOTE | 2025-06-18 01:43 | NUR ---
RECEIVED REPORT FROM PRIOR RN - CALI. PATIENT RESTING IN BED AT THIS TIME, RESP EVEN/UNLABORED, PT TALKING IN HER SLEEP WHEN ROUNDING. CPOX IN PLACE, SATS 93% ON 3L PER NC, BED ALARM IN PLACE FOR PATIENT SAFETY. CALL LIGHT ON BEDSIDE TABLE, WITHIN REACH. ALL PT CARE NEEDS MET AT THIS TIME. THIS RN ALLOWS PATIENT TO SLEEP AT THIS TIME.
--- NOTE | 2025-06-18 02:48 | NUR ---
THIS RN TO GIVE EYE OTINMENT, PT C/O 03/26 PAIN TO LEFT SHOULDER, PRN OXYCODONE GIVEN - SEE MAR. PT ALSO SITS UP IN BED TO TAKE MEDICATION, STARTS COUGH, STATES SHE FEELS SHORT OF BREATH, SATS LOOK GREAT ON CPOX, STILL ON THE 3L PER NC. RT CALLED FOR BREATHING TREATMENT, PT STATES, "SOMETHINGS GOT TO WORK." CALL LIGHT WITHIN REACH, BED ALARM IN PLACE. ALL PT CARE NEEDS MET AT THIS TIME.
--- NOTE | 2025-06-18 03:42 | NUR ---
PT CALL LIGHT ON, REQUESTING TO BE CHANGED, HAD INCONTINENT EPISODE OF STOOL. THIS RN IN TO CHANGE PATIENT, STOOL IS MUCOUSY/LOOSE. PERICARE PERFORMED AROUND CATHETER, NEW ATTENDS IN PLACE. CALL LIGHT WITHIN REACH, PT HEAD ELEVATED AND PT WATCHING TV AT THIS TIME. DENIES ANY OTHER NEEDS.
[2025-06-18 05:29] LABS: BASOPHILS 0.6 % (0.1-1.2); EOSINOPHILS 1.1 % (0.7-5.8); LYMPHOCYTES 26.0 % (19.3-51.7); MCH 28.2 PG (25.6-32.2); MCHC 30.2 g/dL (32.2-35.5); MCV 93.4 fL (79.4-94.8); MONOCYTES 11.3 % (4.7-12.5); NEUTROPHILS 59.3 % (34.0-71.1); RBC 4.57 M/uL (3.93-5.22)
[2025-06-18 05:46] LABS: GLOMERULAR FILTRATION RATE,EST 105.0 mL/min (>60); UREA NITROGEN 14.0 mg/dL (7-18)
[2025-06-18 05:47] LABS: SMEAR REVIEW BLOOD SEE COMMENTS
--- NOTE | 2025-06-18 09:13 | NUR ---
IN TO SPEAK WITH PATIENT. STATES SHE IS PLANNING ON GOING HOME, BUT UNSURE WHEN SHE IS GOING. INFORMED IF SHE NEEDS HOME OXYGEN WILL SET UP PRIOR TO DC. STATES SHE PREFERS [facility] WHEN PATIENT CHOICES PROVIDED. DISCUSSED [facility] WOULD BE CLOSER, VERBALIZES UNDERSTANDING. WILL SEND OXYGEN ORDERS TO [facility] IF HOME OXYGEN IS NEEDED.
--- NOTE | 2025-06-18 09:15 | NUR ---
Scheduled morning medications admin. Patient reported feeling nauseated after receiving IV lasix. Patient's oxygen went from 86% down to 75%, patient notable pale and diaphoretic. Patient reports her stomach is painful and cramping. Oxygen increased to 3L per nc, respirations 27/min, pt short of breath. Bean, RT to bedside to assess patient. Patient's lung sounds are clear/diminished. Dr. Tay to bedside to assess patient as well-new orders obtained to do chest ct with contrast to r/o PE and stat arterial blood gas. Patient's oxygen up to 90% after RT admin breathing treatment.
[2025-06-18 09:41] LABS: BASE EXCESS, BLOOD GAS 13.4 mmol/L (-2-2); HCO3, BLOOD GAS 41.4 mmol/L (22-26); O2 SATURATION, BLOOD GAS 92.8 % (95.0-100.0); PCO2, BLOOD GAS 63.2 mmHg (35-45); PH, BLOOD GAS 7.42 (7.35-7.45); PO2, BLOOD GAS 69 mmHg (80-100); TOTAL CO2, BLOOD GAS 43.3
[2025-06-18 09:42] LABS: OXYGEN RECEIVED, BLOOD GAS 10 L
--- NOTE | 2025-06-18 09:59 | NUR ---
PT'S O2 WAS LOW, RN CALLED IN RESPIRATORY AND THEY TOOK PT TO CT. I CHANGED LINENS AND CLEANED UP PT'S ROOM.
--- NOTE | 2025-06-18 10:11 | NUR ---
FACESHEET, CLINICALS FAXED TO CLINIC TO DR. FLORES FOR REFERRAL NEEDS FOR CARDIOLOGY AND HEPATOLOGY.
--- NOTE | 2025-06-18 10:16 | NUR ---
PT RETURNED FROM CT SCAN. NOW HAS FACE MAsk INSTEAD OF NASAL CANNULA. 9L O2. REPLACED PUREWICK PER RN. PT IN BED, HEAD UP. PT USED COMMODE BEFORE RETURNING TO BED. GOT PT CUP OF ICE REQUESTED. CALL LIGHT WITHIN PLACE.
--- NOTE | 2025-06-18 10:26 | NUR ---
Patient back from CT scan. Patient's oxygen 95% on 3L per oxymask, respirations non labored. Patient denies shortness of breath and or chest pain at this time. Bed alarm intact.
--- NOTE | 2025-06-18 10:32 | NUR ---
MCG-CONCURRENT REVIEW COMPLETED FOR 06/16/25. HYPOXIA STILL PRESENT AND NOT IMPROVED DISPITE TREATMENT [facility] INPT 06/10/25 ORDER MATCHES REG UPDATED CLINICALS [facility]. OXYGEN TRAIL TO BE COMPLETED TODAY. POSSIBLE DC HOME WITH 02 TODAY OR TOMORROW
[2025-06-18] MEDS ORDERED: APIXABAN 5 MG TAB PO SCH (10:49)
[2025-06-18] MEDS ORDERED: guaiFENesin 600 MG TABCR PO SCH (11:06)
--- NOTE | 2025-06-18 12:09 | NUR ---
Patient removed her oxygen mask, sp02 74%. Oxygen mask placed back on patient. Oxygen increased to 90% on 4L per oxymask. Bed alarm intct, cpox in place.
--- NOTE | 2025-06-18 16:22 | NUR ---
PT'S PUREWICK WAS NOT WORKING, I THINK SHE MOVES, IT COMES DISLODGED, AND THEN DUE TO LOW O2 LEVELS, THIS PT URINATES TO BEING DRENCHED. I WAS RECORDING I/O'S AND THE AMOUNT IN THE PUREWICK CONTAINER WAS NOT WHAT IT SHOULD HAVE BEEN - I CHECKED HER AND THEN COMPLETED A BED LINEN CHANGE AND REPLACED THE PUREWICK, CHANGING THE CLOCK ON THE DOOR FOR 8 HOURS FROM CURRENT FOR ANOTHER PUREWICK CHANGE. PT USED A 1PA AND HER WALKER TO MOVE TO THE CHAIR WHILE I COMPLETED THE LINEN CHANGE - THEN I CHANGED THE PT'S GOWN, PERFORMED IRVIN CARE AND SOME SKIN CARE ON THE PT, ANDF REPLACED HER DIAPER AND PUREWICK. DOCUMENTED VITALS AND I/O'S AND TOOK OUT TRASH, CLEANING THE ROOM. RESPIRATORY CAME IN TO COMPLETE A TREATMENT ON THIS PT. CALL LIGHT WITHIN REACH OF PT, AND I GOT HER FRESH ICE WATER, REQUESTED BY PT, NPO STATUS ENDED. PT REPORTED NEEDING NOTHING MORE AT THIS TIME.
--- NOTE | 2025-06-18 19:03 | NUR ---
Patient awake in bed, she continues to remove her oxygen from nose very frequently, adhesive in place to cheeks to assist with continual placement of oxygen. Patient very forgetful to situation/plan, continued education provided by all staff members. High flow oxygen in place @ 30L/50%.
--- NOTE | 2025-06-18 19:46 | NUR ---
REPORT RECEIVED FROM DAY SHIFT RN. PT LYING IN BED RESTING WITH EYES CLOSED. SpO2 LOW 80'S. PT AWAKENS EASILY. ENCOURAGED TO DEEP BREATHE. VAPOTHERM CANULA NOT IN PT NOSE. CANULA REPLACED. SpO2 UP TO 88%. PT DENIES NEEDS. WHITE BOARD UPDATED. BED ALARM IN PLACE. CALL LIGHT IN REACH.
--- NOTE | 2025-06-18 20:58 | NUR ---
EVENING ASSESSMENT COMPLETE. SCHEDULED MEDS ADMIN PER EMAR. PT REPORTS BACK PAIN 02/23. PRN FOR PAIN ADMIN PER EMAR. VAPOTHERM IN PLACE. SpO2 LOW 90'S. PT DENIES SOB. LUNGS CLEAR/DIM THROUGHOUT. 2PA TO REPOSITION IN BED. PT BETTY QUESTIONS OR CONCERNS. CALL LIGHT IN REACH. BED ALARM FOR SAFETY.
--- NOTE | 2025-06-18 23:20 | NUR ---
CPOX ALARMING. PT VAPOTHERM CANULA OUT OF NOSE. CANULA REPLACED. SpO2 UP TO 92%. PUDDING PROVIDED PER REQUEST. NO FURTHER NEEDS. BED ALARM IN PLACE. CALL LIGHT IN REACH.
[2025-06-19] VITALS (7 sets, daily range): BP systolic 103–117; BP diastolic 71–86
--- NOTE | 2025-06-19 01:27 | NUR ---
PT AWAKE IN BED READING TABLET. SpO2 96% WITH 30L/VAPOTHERM. HR 80'S. DENIES NEEDS. CALL LIGHT IN REACH.
--- NOTE | 2025-06-19 02:57 | NUR ---
PT AWAKE IN BED. SCHEDULED MEDS ADMIN PER EMAR. PT REPORTS GENERALIZED PAIN 03/26. PRN FOR PAIN ADMIN PER EMAR. ASSISTED TO REPOSITION. WARM BLANKET PROVIDED. ASSESSMENT UNCHANGED. NO FURTHER NEEDS. BED ALARM IN PLACE. CALL LIGHT IN REACH.
[2025-06-19 05:26] LABS: BASOPHILS 0.6 % (0.1-1.2); EOSINOPHILS 1.0 % (0.7-5.8); LYMPHOCYTES 28.2 % (19.3-51.7); MCH 28.6 PG (25.6-32.2); MCHC 30.4 g/dL (32.2-35.5); MCV 94.0 fL (79.4-94.8); MONOCYTES 10.8 % (4.7-12.5); NEUTROPHILS 58.1 % (34.0-71.1); RBC 4.34 M/uL (3.93-5.22)
--- NOTE | 2025-06-19 05:27 | NUR ---
LAB IN FOR MORNING DRAW. VS AND I&O OBTAINED. DAILY WEIGHT OBTAINED. NEW PUREWICK PLACED AFTER IRVIN CARE. PT NPO, VERBALIZES UNDERSTANDING. DENIES NEEDS AT THIS TIME. CALL LIGHT IN REACH.
[2025-06-19 05:32] LABS: GLOMERULAR FILTRATION RATE,EST 104.0 mL/min (>60); UREA NITROGEN 12.0 mg/dL (7-18)
[2025-06-19 05:40] LABS: SMEAR REVIEW BLOOD SEE COMMENTS
[2025-06-19] MEDS ORDERED: KETOROLAC TROMETHAMINE 30 MG/ML VIAL IV ONE (09:15)
--- NOTE | 2025-06-19 09:18 | NUR ---
Admin toradol 30mg iv for reported 7/10 head pain.
--- NOTE | 2025-06-19 10:32 | NUR ---
Patient is awake, alert to self and place at this time. Patient's mentation is more clear this morning. Patient pleasant with cares, no acute distress at this time. Patient is on vapotherm, 40L @ 100% fi02, no respiratory distress at this time. Patient has exertional shortness of breath. Patient denies needs at this time.
--- NOTE | 2025-06-19 11:11 | NUR ---
RESTING IN BED ON VAPOTHERM. ALLOWED TO REST. STAFF STATE PATIENT'S RESP STATUS IS DECLINING. NO CM NEEDS AT THIS TIME. PATIENT HAS BEEN ADAMANTLY REFUSING ANY TYPE OF PLACEMENT.
--- NOTE | 2025-06-19 11:20 | NUR ---
VISITED DURING SPIRITUAL CARE ROUNDS. PT APPEARED TO BE SLEEPING. DID NOT DISTURB. PROVIDED PRAYER.
--- NOTE | 2025-06-19 11:38 | NUR ---
Patient awake, alert and oriented x3 at this time. Patient speaking wtih Dr. Tay regarding plan of care. RT at bedside for breathing treatment, vapotherm in place-40L/100% fio2. Patient denies nausea at this time. Call light within reach of patient.
--- NOTE | 2025-06-19 12:52 | NUR ---
HOURLY ROUNDING. PATIENT IS LAYING IN BED, SLEEPING ON AND OFF. NO REQUEST FROM PATIENT AT THIS TIME CALL LIGHT HAS BEEN PLACED WITHIN REACH
--- NOTE | 2025-06-19 13:30 | NUR ---
Patient had a few bites of food from lunch tray-removed at this time. Patient visiting with her . Active diet order in computer.
--- NOTE | 2025-06-19 13:47 | CONS ---
[facility] [address], [place] [address] Signed DATE OF CONSULTATION: 06/18/2025 REQUESTING PHYSICIAN: Dr. Tay. PROBLEM: Right lower lobe consolidation and multiple medical problems. HISTORY OF PRESENT ILLNESS: This 60-year-old white woman has a complex history. She was admitted on the 08 of June and has been in the hospital since that time (now June 18). At presentation was having been found on the floor at home for 4 to 5 days preceding her evaluation. She was hypoxic on room air and was noted to have an elevated lactic acid of 2.2 and an elevated BNP of 9950. She was admitted by Dr. Guevara and additional evaluation has been ongoing with aggressive diuresis for what is thought to be decompensated congestive heart failure leading to her acute hypoxic respiratory failure. She has been cared for by Dr. Guevara, subsequently Dr. Foster and now Dr. Tay. Her focus of therapy is that of diuresis, which has been improving her oxygenation. She now requires 3 L nasal cannula to maintain saturations of 94%, which I have evaluated at the bedside today. She does have lower extremity edema, but has had aggressive diuresis, having lost a considerable amount of water weight. Indeed, she has lost 5 pounds of weight in approximately three days, but far more than that leading up to that time. She does smoke one pack of cigarettes a day currently. She has had improvement of her chest x-ray with aggressive diuresis. She is also considered to have decompensated cirrhosis with subsequent portal hypertension and impaired hepatic synthetic function. There was some question of recently diagnosed hepatitis C, though that is not certain to me. Outpatient management has been considered for this. It is noted she has lost approximately 27 pounds since her admission as part of her diuretic program. The patient denies any hemoptysis or other similar problem. She is considered to have right-sided congestive heart failure/cor pulmonale anticipating Cardiology follow up in the future. She is also considered to have possible leukemia with flow cytometry pending and various soft tissue wounds with local wound care ongoing. She has been ruled out pulmonary embolism, having undergone CT scan today, but does have what appears to be right lower lobe atelectatic changes with possible air space loss in the right lower lobe secondary to mucus plugging. She has a cirrhotic appearance of liver with a small amount of ascites and does have bilateral pleural effusions. I was called by Dr. Tay, though I am not on-call specifically for consideration of bronchoscopy for improvement of her right lower lobe possibly mucus plug related atelectasis. Electronically Signed By: JACI LAKE MD 06/19/25 1347 PATIENT NAME: ROCK MORALES CONSULTATION DATE OF : 63 REPORT #: [id number] PHYSICIAN: JACI LAKE MD PCP: NORAH FLORES MD REPORT IS CONFIDENTIAL AND NOT TO BE RELEASED WITHOUT AUTHORIZATION [address] [address] Signed The patient at present is comfortable without overt dyspnea and as noted previously with no associated hemoptysis. Her social situation, she does live with her and two small dogs. Other details of her home situation are uncertain. REVIEW OF SYSTEMS: She denies any abdominal pain and no overt shortness of breath while at rest. Has had no cough. She has been doing okay on nicotine patch without smoking. PHYSICAL EXAMINATION: GENERAL: Pleasant white woman who looks to be far older than her stated age of 60 years. NECK: Trachea is midline. She has a plethoric appearance suggestive of COPD. CHEST: Listen to bilaterally showing movement of air, though an end-expiratory wheeze on the left side. Transient consolidation indication (E to A changes) are noted in the right posterior base and right lateral chest wall exam. ABDOMEN: Obese without overt ascites on clinical exam. EXTREMITIES: Show low-grade edema. LAB STUDIES: Today show a white count of 6.65, hematocrit of 42.7, platelets 55,000. Coag studies show an INR of 1.22. Urinalysis at presentation showed elevated protein of 30, otherwise reasonably normal. Her tox screen at presentation was essentially negative except for marijuana. Chem profile today is notable for a magnesium of 1.6. Liver enzymes have been normal thus far. Current and recent albumin is 2.7. Most recent BNP June 12 was 11,798 (elevated from the time of admission). I have reviewed her chest x-ray and chest CT scan. Consolidative findings are noted in the right lower lobe as well as bibasilar effusions. ASSESSMENT: Her hypoxemia is actually improving with diuresis and control of her other metabolic systems. Flexible bronchoscopy would be a good idea to open the airways and provide bronchoalveolar lavage and decrease mucus plugging. Tempering ones enthusiasm for such an intervention is noting that she has significant thrombocytopenia and the possibility of bleeding with bronchoscopic manipulation is hazardous, though not excessively so. She is improving with Vapotherm oxygen therapy, aggressive diuresis and support of her other systems. I will review this further with Dr. Tay and continued approach as is noted now would be reasonable. Whether or not an Acapella device for respiratory care would be a benefit to her is uncertain to me, but I will review that with respiratory therapist as well. Electronically Signed By: JACI LAKE MD 06/19/25 [id number] PATIENT NAME: ROCK MORALES CONSULTATION DATE OF : 63 REPORT #: [id number] PHYSICIAN: JACI LAKE MD PCP: NORAH FLORES MD REPORT IS CONFIDENTIAL AND NOT TO BE RELEASED WITHOUT AUTHORIZATION [facility] [address], [place] [address] Signed Secondary evaluation of her CT scan that was performed on June 11 showed somewhat larger pleural effusions bilaterally and therefore those appear to be improving with a diuretic approach rather than thoracentesis proper. The apparent atelectatic changes of the right medial basilar lung appeared to be worsened on today's evaluation comparatively and bronchoscopy with mucus plug removal may be of benefit. MD ADEN Leonard/NIYA /[id number] cc: Dr. Tay Copies: ~ Electronically Signed By: JACI LAKE MD 06/19/25 1347 PATIENT NAME: ROCK MORALES CONSULTATION DATE OF : 63 REPORT #: [id number] PHYSICIAN: JACI LAKE MD PCP: NORAH FLORES MD REPORT IS CONFIDENTIAL AND NOT TO BE RELEASED WITHOUT AUTHORIZATION
--- NOTE | 2025-06-19 14:17 | NUR ---
Updated Dr. Tay regarding magnesium level of 1.4 from this morning labs 06/19/25). TORB to given magnesium sulfate 4g iv once.
[2025-06-19] MEDS ORDERED: MAGNESIUM SULFATE 2 GM/50 ML BAG IV SCH (14:30)
[2025-06-19] MEDS ORDERED: MAGNESIUM SULFATE 4 GM/100 ML BAG IV ONE (14:30)
--- NOTE | 2025-06-19 14:55 | NUR ---
Patient resting in bed, easily wakes to verbal stimuli. IV magnesium started per order, iv patent. Patient denies sob at rest, vapotherm in place-40L/60% FIO2, SP02 95%, RR 20/MIN-non labored. Scheduled medications admin. Patient denies further needs, bed alarm intact.
--- NOTE | 2025-06-19 17:51 | NUR ---
HOURLY ROUNDING. PATIENT IS SITTING UP IN BED ON HER TABLET. NO REQUEST FROM PATIENT AT THIS TIME. CALL LIGHT PLACED WITHIN REACH
--- NOTE | 2025-06-19 18:03 | NUR ---
PATIENT AWAKE, SHE REPORTS 7/ HEADACHE, ADMIN 2.5MG PO OXYCODONE AND TYLENOL 650MG PO. PATIENT HAS NO ACUTE DISTRESS, SHE DENIES SOB AT REST, VAPOTHERM IN PLACE-40L/50% FIO2, RESPIRATIONS NON LABORED, SP02 94%.
--- NOTE | 2025-06-19 19:20 | NUR ---
REPORT RECEIVED FROM LONNIE BEYER. pt RESTING IN THE BED. VAPOTHERM ON. pt DENIES ANY OTHER NEEDS AT THIS TIME. BOARD UPDATED. CALL LIGHT WITHIN REACH.
--- NOTE | 2025-06-19 20:44 | NUR ---
ROCK (AKA: CINDY) IS CURRENTLY ON A VAPOTHERM HFNC 35L 50%. CORNET +5 DONE W/O DIFFICULTY. CINDY IS ASKING ABOUT WHEN HER BRONCH IS, RT TOLD HER THAT SHE THINKS IT IS TOMORROW.
--- NOTE | 2025-06-19 21:24 | NUR ---
[employer] COURT JUDGE OBTAINED VITALS AND I&O. PUREWRICK CANNISTER EMPTIED. PT STATES NO NEEDS AT THIS TIME. CALL LIGHT WITHIN REACH AND BED ALARM ON.
--- NOTE | 2025-06-19 22:00 | NUR ---
ASSESSMENT AND VITAL SIGNS DONE. NEW PURE WICK PLACED. BRIEF CHANGED. pt REMINDED TO KEEP VAPOTHERM ON. SCHEDULED AND PRN PAIN MEDS ADMINISTERED. pt C/O 03/26 PAIN. IV ASSESSED, WNL. pt DENIES ANY OTHER NEEDS AT THIS TIME. CALL LIGHT WITHIN REACH. LUNG SOUNDS ARE CLEAR.
--- NOTE | 2025-06-19 23:40 | NUR ---
IN RM TO CHECK ON pt. pt RESTING ON RIGHT SIDE. pt REMINDED TO KEEP VAPOTHERM ON. PURE WICK CHANGED AT 2200. pt DENIES ANY OTHER NEEDS AT THIS TIME. CALL LIGHT WITHIN REACH.
[2025-06-20] VITALS (24 sets, daily range): BP systolic 84–171; BP diastolic 58–101
--- NOTE | 2025-06-20 01:27 | NUR ---
pt CPOX ALARMING. pt TAKEN OFF HER VAPOTHERM. pt REMINDED TO KEEP VAPOTHERM IN PLACE. pt DENIES ANY OTHER NEEDS AT THIS TIME. CALL LIGHT WITHIN REACH.
--- NOTE | 2025-06-20 02:47 | NUR ---
IN RM TO CHECK ON pt. pt SITTING UP IN THE BED. LOOKING AT HER PHONE. VAPOTHERM ON. pt DENIES ANY OTHER NEEDS AT THIS TIME. CALL LIGHT WITHIN REACH.
--- NOTE | 2025-06-20 04:29 | NUR ---
pt RESTING IN THE BED WITH EYES CLOSED. RR EVEN AND UNLABORED. CALL LIGHT WITHIN REACH.
[2025-06-20 05:28] LABS: BASOPHILS 0.5 % (0.1-1.2); EOSINOPHILS 1.3 % (0.7-5.8); LYMPHOCYTES 29.9 % (19.3-51.7); MCH 28.7 PG (25.6-32.2); MCHC 30.3 g/dL (32.2-35.5); MCV 94.8 fL (79.4-94.8); MONOCYTES 11.4 % (4.7-12.5); NEUTROPHILS 55.1 % (34.0-71.1); RBC 4.42 M/uL (3.93-5.22)
[2025-06-20 05:38] LABS: GLOMERULAR FILTRATION RATE,EST 79.0 mL/min (>60); UREA NITROGEN 16.0 mg/dL (7-18)
[2025-06-20 05:52] LABS: SMEAR REVIEW BLOOD SEE COMMENTS
--- NOTE | 2025-06-20 06:02 | NUR ---
IN RM TO ADMINISTER pt SCHEDULED MEDS. pt VITAL SIGNS DONE. pt REMINDED SHE IS NPO AT THIS TIME. pt DENIES ANY OTHER NEEDS AT THIS TIME. CALL LIGHT WITHIN REACH.
--- NOTE | 2025-06-20 07:22 | NUR ---
RECIEVED REPORT FROM KAYLEEN IRAHETA. PT IS RESTING IN BED WITH EYES CLOSED. VAPOTHERM IS SET AT 35L/40% FI02. RR EVEN AND UNLABORED. CALL LIGHT AND PERSONAL BELONGINGS WITHIN REACH. CPOX AT BEDSIDE.
[2025-06-20] MEDS ORDERED: IPRATROPIUM BROMIDE 2.5 ML VIAL INH SCH (08:00)
[2025-06-20] MEDS ORDERED: BUDESONIDE 0.5 MG/2 ML VIAL INH SCH (08:00)
--- NOTE | 2025-06-20 08:31 | NUR ---
PATIENT IN BED AT THIS TIME. VESSEL CREW MEMBER CHARTED HOURLY ROUNDS, RT IN ROOM. CALL LIGHT WITHIN REACH, NO FURTHER NEEDS AT THIS TIME.
--- NOTE | 2025-06-20 09:15 | NUR ---
0900 AND 1000 MEDS ADMINISTERED PER THE EMAR. VS AND INTAKE AND OUPUT TAKEN AND DOCUMENTED IN CHART. FULL ASSESSMENT COMPLETED AND DOCUMENTED IN CHART. PT REMAINS ON VAPOTHERM AT 35L, WITH AN FI02 OF 40%. RIGHT LUNG SOUNDS ABSENT. DR. ESCOBEDO AT BEDSIDE AND CONFIRMED. LUNG SOUNDS DIMINISHED IN BASES, WITH EXPIRATORY WHEEZING IN UPPER LOBE. PT REMAINS NPO WITH HYPOACTIVE BOWEL TONES. CARDIAC IS NORMAL, PT IS ALERT AND ORIENTED TO SELF AND PLACE. PT REPORTED PAIN 7/10 AND IS NOT REQUESTING ANYTHING. PT STATED NO FURTHER NEEDS AT THIS TIME, CALL LIGHT AND PERSONAL BELONGINGS WITHIN REACH.
--- NOTE | 2025-06-20 09:18 | NUR ---
INTO SEE PATIENT. PLANS FOR PATIENT TO HAVE BRONCHOSCOPY DONE TODAY AROUND 11:45. PATIENT DOES NOT HAVE ANY CM NEEDS AT THIS TIME.
--- NOTE | 2025-06-20 09:21 | NUR ---
PATIENT IN BED AT THIS TIME. THIS HEAD BELLHOP CAPTAIN AND KAYLEEN LING AND KAYLEEN CASTORENA CHANGED PATIENTS BREIF, CHUX, AND PLACED A NEW PUREWICK. CALL LIGHT WITHIN REACH, NO FURTHER NEEDS AT THIS TIME.
[2025-06-20 09:35] LABS: BASE EXCESS, BLOOD GAS 13.3 mmol/L (-2-2); HCO3, BLOOD GAS 39.7 mmol/L (22-26); O2 SATURATION, BLOOD GAS 89.6 % (95.0-100.0); OXYGEN RECEIVED, BLOOD GAS 40%; PCO2, BLOOD GAS 56.4 mmHg (35-45); PH, BLOOD GAS 7.46 (7.35-7.45); PO2, BLOOD GAS 55 mmHg (80-100); TOTAL CO2, BLOOD GAS 41.5
--- NOTE | 2025-06-20 10:00 | NUR ---
MORNING ASSESSMENT DONE. PATIENT HAS DETERIORATING PO2 WITH ELVATED CO2, HCO2 AND BASE EXCESS. CT SHOWS RLL COLLAPSE POSSIBLE DUE TO MUCOUS PLUGGING. I HAVE NOTIFIED [facility] MED SURG CHARGE, IBETH SHETHSAND CONDITIONER MACHINE, JASEN RT CDL SERVICE TECHNICIAN, MULTIDISCIPLINARY TEAM AND DR ESCOBEDO. ABG DONE AND RESULTS REPORTED TO DR ESCOBEDO.
--- NOTE | 2025-06-20 10:24 | NUR ---
PATIENT IS LYING IN BED WITH EYES CLOSED AND RESPIRATIONS ARE EVEN AND UNLABORED. VAPOTHERM REMAINS IN PLACE. HOB ELEVATED. CALL LIGHT AND PERSONAL BELONGINGS ARE WITHIN REACH.
--- NOTE | 2025-06-20 10:50 | NUR ---
PT LEFT THE FLOOR AT THIS TIME FOR SURGERY. KAYLEEN LING, KAYLEEN LEIVA, AND MARK IZQUIERDO, CHANGED BRIEF, CHUX, AND DRAW SHEET PRIOR TO LEAVING THE FLOOR.
--- NOTE | 2025-06-20 11:16 | NUR ---
PT REMAINS OFF THE FLOOR AT THIS TIME.
[2025-06-20] MEDS ORDERED: fentaNYL citrate 100 MCG/2 ML VIAL ONE (11:21)
[2025-06-20] MEDS ORDERED: LIDOCAINE HCL 2% 5 ML SDV ONE (11:21)
[2025-06-20] MEDS ORDERED: DEXAMETHASONE SOD PHOS 4 MG/ML VIAL ONE (11:21)
[2025-06-20] MEDS ORDERED: ROCURONIUM BROMIDE 50 MG/5 ML SYR ONE (11:21)
--- NOTE | 2025-06-20 11:25 | NUR ---
REPORT GIVEN TO COBY LANG RN IN CCU AT THIS TIME.
[2025-06-20] MEDS ORDERED: ALBUTEROL/IPRATROPIUM 3 ML NEB INH SCH ×2 (12:00)
--- NOTE | 2025-06-20 12:33 | NUR ---
06/20/25 Fareed3 Francia Bates 1213-PATIENT TRANSFERRED FROM OR TO CCU ROOM 129 ON VENTILATOR WITH TEST WORKER MARZENA. TEST WORKER GAVE REPORT TO COBY BEYER WHO RESUMED CARE.
[2025-06-20] MEDS ORDERED: MIDAZOLAM HCL 2 MG/2 ML VIAL IV ONE (12:45)
--- NOTE | 2025-06-20 13:30 | NUR ---
this rn placed balderrama cath - using a non latex balderrama and urine meter - allergies checked and attempt x1 with immediate clear yellow urine return to gravity. pt on ventalator.
[2025-06-20 13:48] LABS: BASE EXCESS, BLOOD GAS 17.3 mmol/L (-2-2); HCO3, BLOOD GAS 40.4 mmol/L (22-26); O2 SATURATION, BLOOD GAS 86.9 % (95.0-100.0); PCO2, BLOOD GAS 40.1 mmHg (35-45); PH, BLOOD GAS 7.61 (7.35-7.45); PO2, BLOOD GAS 44 mmHg (80-100); TOTAL CO2, BLOOD GAS 41.6
[2025-06-20 13:49] LABS: OXYGEN RECEIVED, BLOOD GAS 30%
--- NOTE | 2025-06-20 14:03 | NUR ---
PATIENT RETURNS FROM OR S/P BRONCHOSCOPY WITH DR. LAKE AT 1213. PT IS ON VENT WITH A 7.5 ETT, 23 AT THE GUMS AND CURRENT VENT SETTINGS OF VC/AC 24, PEEP 10, VT 440, AND FI02 30%. PT IS IN NORMAL SINUS RHYTHM. AMBRIZ CATH PLACED PER PROTOCOL. PT STARTED ON PROPOFOL FOR SEDATION, TITRATED UP FROM 20 MCG/KG/MIN STARTING AT 1220 AND THEN CURRENTLY NOW AT 60 MCG/KG/MIN. BOTH DR. LAKE AND DR. ESCOBEDO IN ROOM- ORDER REC'D TO PLACE OG AND THIS WAS DONE SUCCESSFULLY. PT STILL RESTLESS ON THIS AMOUNT OF SEDATION. RASS GOAL IS -1. PT GIVEN ONE TIME DOSE OF VERSED 4 MG WHILE TRYING TO GET ADEQUATE SEDATION LEVEL. CXR DONE AND REPORT IN CHART.
[2025-06-20] MEDS ORDERED: FENTANYL CITRATE-0.9 % NACL/PF 100 ML IV SCH (14:30)
[2025-06-20] MEDS ORDERED: MIDAZOLAM HCL 2 MG/2 ML VIAL IV PRN (16:00)
[2025-06-20 16:33] LABS: BASE EXCESS, BLOOD GAS 15.5 mmol/L (-2-2); HCO3, BLOOD GAS 39.5 mmol/L (22-26); O2 SATURATION, BLOOD GAS 88.0 % (95.0-100.0); PCO2, BLOOD GAS 44.2 mmHg (35-45); PH, BLOOD GAS 7.56 (7.35-7.45); PO2, BLOOD GAS 48 mmHg (80-100); TOTAL CO2, BLOOD GAS 40.9
[2025-06-20 16:34] LABS: OXYGEN RECEIVED, BLOOD GAS 40%
--- NOTE | 2025-06-20 19:45 | NUR ---
HANDOFF REPORT RECEIVED FROM COBY BEYER. ALL QUESTIONS ANSWERED. NO ACUTE DISTRESS NOTED. PATIENT VITAL SIGNS STABLE AT THIS TIME.
--- NOTE | 2025-06-20 20:20 | NUR ---
PATIENT ASSESSMENT COMPLETE. PATIENT REMAINED INTUBATED AND SEDATED. VENTILATOR SETTINGS; FIO2 40, VT 440, RR 16, PEEP 12. FENTANYL INFUSING AT 50 MCG/HR AND PROPOFOL INFUSING AT 30 MCG/KG/MIN. ETT TUBE 7.5 CM AND 24 AT THE LIPS. PT TOLERATING ETT. IV SITES INTACT AND WNL. RASS -2. RESTRAINTS IN PLACE PER MD ORDER, CMS INTACT. HR 82, NSR. RR EVEN AND UNLABORED. LUNG SOUNDS COARSE IN THE LLL. BOWEL SOUNDS HYPOACTIVE. OG TUBE INTACT AT LIWS. AMBRIZ INTACT AND DRAINING DARK, CONCENTRATED URINE. SCDS IN PLACE. TWO ALLEYVNS NOTED ON THE LLE. +1 EDEMA NOTED TO LUE . L. PUPIL 4 MM W/ IRREGULAR RESPONSE TO LIGHT AND R. PUPIL 3 MM W/ BRISK RESPONSE TO LIGHT. GENERALIZED EDEMA NOTED TO BUE AND +1 EDEMA NOTED TO LLE. THIS RN AND KAYLEEN WILLETT REMAIN IN ROOM.
[2025-06-20] MEDS ORDERED: CLINDAMYCIN PHOSPHATE/D5W 900 MG/50 ML PIGGYBACK IV SCH (21:00)
[2025-06-20] MEDS ORDERED: ENOXAPARIN SODIUM 100 MG/ML SYR SUB-Q SCH (21:00)
[2025-06-20 21:13] LABS: GLOMERULAR FILTRATION RATE,EST 98.0 mL/min (>60); UREA NITROGEN 16.0 mg/dL (7-18)
[2025-06-20] MEDS ORDERED: MAGNESIUM SULFATE 2 GM/50 ML BAG IV SCH (21:30)
--- NOTE | 2025-06-20 21:44 | NUR ---
SPOKE WITH DR HERNANDEZ ABOUT PATIENT LABS AND MEDICATIONS. NEW ORDERS RECEIVED TO HOLD ENOXAPARIN AND REPLACE MAGNESIUM. ORDERS ENTERED BY .
--- NOTE | 2025-06-20 23:15 | NUR ---
THIS RN AND KAYLEEN WILLETT IN ROOM. PATIENT RESTING IN BED W/ EYES CLOSED. VENTILATOR SETTINGS PER RT. RASS -2. IV SITES INTACT. AMBRIZ INTACT AND DRAINING WELL. AMBRIZ CARE COMPLETE. RESTRAINTS IN PLACE PER MD ORDER, CMS INTACT. PROM PERFORMED ON BLE. SKIN CARE COMPLETED. NEW ALLEVYN PLACED ON L. ANTERIOR PARRA D/T SKIN BREAKDOWN. SCDS IN PLACE. THIS RN AND KAYLEEN WILLETT REMAIN IN ROOM.
[2025-06-21] VITALS (27 sets, daily range): BP systolic 80–119; BP diastolic 53–93
--- NOTE | 2025-06-21 00:28 | EKG ---
[facility] [address] [facility] [place] [address] Signed Normal sinus rhythm RSR' or QR pattern in V1 suggests right ventricular conduction delay Nonspecific ST and T wave abnormality Abnormal ECG When compared with ECG of 08-JUN-2025 15:28, Minimal criteria for Inferior infarct are no longer present Confirmed by Beatriz Hernandez MD () on 06/21/2025 12:28:27 AM Electronically Signed By: BEATRIZ HERNANDEZ MD 06/21/25 0028 PATIENT NAME: ROCK MORALES Electrocardiogram DATE OF : 63 PHYSICIAN: BEATRIZ HERNANDEZ MD REPORT #: [id number] REPORT IS CONFIDENTIAL AND NOT TO BE RELEASED WITHOUT AUTHORIZATION
[2025-06-21] MEDS ORDERED: DEXTROSE 5% - LACTATED RINGERS 1,000 ML IV SCH (00:30)
--- NOTE | 2025-06-21 00:30 | NUR ---
DR HERNANDEZ ON UNIT. DISCUSSED PATIENT LOW BLOOD PRESSURE READINGS WITH THE PROPOFOL GTT AND LOW URINE OUTPUT. NEW ORDER RECEIVED FOR CONTINUOUS IVF PER EMAR.
--- NOTE | 2025-06-21 01:25 | NUR ---
THIS RN IN ROOM. PATIENT RESTING IN BED W/ EYES CLOSED. VENTILATOR SETTING PER RT. AMBRIZ INTACT AND DRAINING WELL. BUE RESTRAINTS IN PLACE PER MD ORDER, CMS INTACT. IV SITES INTACT. RASS -1. VITAL SIGNS STABLE. OG TUBE INTACT AND TO LIWS. BED IN LOWEST POSITION. DIRECT PATIENT OBSERVATION FROM RN STATION.
--- NOTE | 2025-06-21 02:46 | NUR ---
THIS RN IN ROOM. RR EVEN AND UNLABORED. VENTILATOR SETTINGS PER RT. IV SITES INTACT. VITAL SIGNS STABLE AT THIS TIME. BED IN LOWEST POSITION.
--- NOTE | 2025-06-21 03:16 | NUR ---
THIS RN AND KAYLEEN WILLETT IN PATIENT ROOM. ETT TUBE REPOSITIONED. VENTILATOR SETTINGS PER RT. IV SITES INTACT. AMBRIZ INTACT AND DRAINING W/O DIFFICULTY. RESTRAINTS INTACT PER MD ORDER, CMS INTACT. BED IN LOWEST POSITION. VITAL SIGNS STABLE AT THIS TIME.
[2025-06-21 05:30] LABS: BASOPHILS 0.3 % (0.1-1.2); EOSINOPHILS 0 % (0.7-5.8); LYMPHOCYTES 16.2 % (19.3-51.7); MCH 28.8 PG (25.6-32.2); MCHC 31.3 g/dL (32.2-35.5); MCV 91.9 fL (79.4-94.8); MONOCYTES 12.1 % (4.7-12.5); NEUTROPHILS 70.2 % (34.0-71.1); RBC 4.31 M/uL (3.93-5.22)
[2025-06-21 05:47] LABS: SMEAR REVIEW BLOOD SEE COMMENTS
[2025-06-21 05:50] LABS: ALT (SGPT) 31.0 U/L (14-59); AST (SGOT) 39.0 U/L (15-37); GLOMERULAR FILTRATION RATE,EST 75.0 mL/min (>60); PROTEIN, TOTAL 6.6 g/dL (6.4-8.2); UREA NITROGEN 19.0 mg/dL (7-18)
[2025-06-21 06:12] LABS: BASE EXCESS, BLOOD GAS 14.3 mmol/L (-2-2); HCO3, BLOOD GAS 39.1 mmol/L (22-26); O2 SATURATION, BLOOD GAS 95.7 % (95.0-100.0); OXYGEN RECEIVED, BLOOD GAS 30%; PCO2, BLOOD GAS 47.8 mmHg (35-45); PH, BLOOD GAS 7.52 (7.35-7.45); PO2, BLOOD GAS 71 mmHg (80-100); TOTAL CO2, BLOOD GAS 40.6
--- NOTE | 2025-06-21 06:37 | NUR ---
THIS RN AND KAYLEEN WILLETT IN ROOM. ORAL CARE COMPLETE. IV SITES INTACT. VENTILATOR SETTINGS PER RT. PATIENT REPOSITIONED, NEW BRIEF AND X2 ALLEVYNS PLACED ON COCCYX AREA. PATIENT ABLE TO OPEN EYES, SQUEEZE HANDS, AND WIGGLE TOES. ETT 24 AT THE LIPS. OG TUBE INTACT ON LIWS. PATIENT ATTEMPTS TO PULL AT VENT WHEN REPOSITIONING, PATIENT RECONSOLABLE AT THIS TIME. PATIENT PROPOFOL AND FENTANYL REMAIN INFUSING PER MEDICATION FLOWSHEET. RESTRAINTS IN PLACE PER MD ORDER. AMBRIZ CATH REMAINS INTACT AND DRAINS CONCENTRATED URINE. PATIENT REMAINS IN DIRECT OBSERVATION FROM RN STATION. BED REMAINS LOCKED AND IN LOWEST POSITION.
--- NOTE | 2025-06-21 06:43 | NUR ---
UPDATED ON PATIENT'S ABG RESULTS AND URINE OUTPUT
[2025-06-21] MEDS ORDERED: ALBUTEROL/IPRATROPIUM 3 ML NEB INH SCH (08:00)
[2025-06-21] MEDS ORDERED: PANTOPRAZOLE SODIUM 40 MG/10 ML VIAL IV SCH (09:00)
[2025-06-21] MEDS ORDERED: POTASSIUM CHLORIDE 40 MEQ,LIDOCAINE HCL 1% 40 MG in DEXTROSE 5% 250 ML IV ONE (09:00)
--- NOTE | 2025-06-21 09:40 | NUR ---
RT TEAM MEETING THIS AM ABOUT PLAN OF CARE AND RECOMMENDATION IS FOLLOWS. PEEP TO 10 THIS SHIFT, PEEP TO 8 AT 1999, PEEP TO 6 AT 2358 AND ABG 0600 06-22-2025. IF ABG CONTINUES TO IMPROVE SBT TOMORROW PLANNED FOR 0900. WITH PLAN TO EXTUBATE IF GOALS MET.
--- NOTE | 2025-06-21 10:40 | NUR ---
PT NOTED TO BE DESATING WITH UNCHANGED VENT SETTINGS. RT IN ROOM AT BEDSIDE. PT REPOSISTIONED UP IN BED AND TO LEFT SIDE WITH HOB MORE ELEVATED. PT WAKES WITH MOVEMENT AND REACHES FOR TUBE AND LINES. PT DOES NOT SETTLE AFTER RESTRAINTS ARE RETIED. TITRATION UP IN SEDATION GTT MEDICATIONS, PT SHAKES HEAD "YES" WHEN ASKED IF IN PAIN. FI02 TITRATED TO 40% WITH CONTINUED SP02 OF 85%. SUCTION BY RT. PILLOWS UNDER BACK/NECK AND LEGS FOR SUPPORT. CMS DISTAL TO RESTRAINTS INTACT.
--- NOTE | 2025-06-21 11:31 | NUR ---
PATIENT INTUBATED AT THIS TIME. CM WILL CHECK BACK FOR NEEDS AT A LATER TIME.
--- NOTE | 2025-06-21 12:44 | OR ---
[facility] [address], [place] [address] Signed DATE OF OPERATION: 06/20/2025 SURGEON: Jaci Lake MD PREOPERATIVE DIAGNOSIS: Progressive hypoxemic respiratory failure and right lower lobe consolidation and airspace loss, likely related to mucus plugging. POSTOPERATIVE DIAGNOSIS: Tenacious secretions causing mucus plugging, right lower lobe and to lesser extent main yoanna and left upper lobe. PROCEDURES: 1. Flexible bronchoscopy with bronchoalveolar lavage. 2. Collection of specimens for cultures and Gram stain. ANESTHESIA: General endotracheal; Pan Dhillon, STEAMFITTER SUPERVISOR. INDICATION: This 60-year-old white woman has been admitted to the hospital since June 08, 2025, with hypoxemic respiratory failure and congestive heart failure as well. I was consulted two days ago by Dr. Tay, the hospitalist for consideration of bronchoscopy as she underwent a CT scan of the chest showing considerable consolidation of the right lower lobe and has had progressive hypoxemia requiring high flows on Vapotherm and despite efforts of Acapella, pulmonary interventions and Mucomyst administration. The patient has a complex past medical history which includes cirrhosis of the liver, low-grade ascites and resultant thrombocytopenia. Her platelet count today is 65,000. I have discussed with the patient and her significant other, the risk of bronchoscopy and bronchoalveolar lavage, which was offered, which include but is not limited to bleeding, infection, pneumothorax, and of course failure to improve her symptoms. Understanding this they wished to proceed. FINDINGS: Impressively tenacious secretions were noted, gathered at the yoanna itself and somewhat encumbering the left mainstem bronchus, but most dominantly the right bronchus intermedius and lower lobe bronchi. Tenacious secretions were suctioned free and withdrawn and bronchoalveolar lavage taken bilaterally showing impressive improvement of the gross appearance of the segments of the lung. She tolerated the procedure well. Electronically Signed By: JACI LAKE MD 06/21/25 1244 PATIENT NAME: ROCK MORALES OPERATIVE REPORT DATE OF : 63 REPORT #: [id number] PHYSICIAN: JACI LAKE MD PCP: NORAH FLORES MD REPORT IS CONFIDENTIAL AND NOT TO BE RELEASED WITHOUT AUTHORIZATION [facility] [address], [place] [address] Signed At the request of the band cutting machine operator, Dr. Tay, she remained intubated at conclusion and transferred to the intensive care unit for further assessment and evaluation. DESCRIPTION OF PROCEDURE: The patient was brought to the operating room where she was on a Vapotherm oxygen delivery device at high flows. She did not have significant respiratory distress particularly and was not imminently suffering respiratory exhaustion from her outward appearance. She underwent intubation without difficulty. Adapter for the endotracheal tube was applied and an Olympus flexible bronchoscope with video adapter was passed down the endotracheal tube. Copious secretions were noted in the distal trachea and at the mediastinum. These were suctioned initially and found to be tenacious and rubber-band like. Sequential withdrawing of tenacious secretions was undertaken offloading the material and some of it gathered for Gram stain and culture. Flushing of the channel of the bronchoscope was necessary as the secretions were easily plugging the area. Once most of the more proximal secretions were freed, the bronchoscope was positioned at the yoanna once again, the passage to the left side undertaken. The left mainstem bronchus and left upper lobe bronchi and lower lobe bronchi were carefully inspected and irrigated with sterile saline showing good clearance of the secretions. Reorientation of the scope at the main yoanna allowed for intubation of the right mainstem bronchus and immediate passage to the right upper lobe. The three segmental bronchi of the right upper lobe were identified, two of which were somewhat fused in appearance and they were essentially free of tenacious material at that time. The scope was withdrawn and passed to the bronchus intermedius, which showed copious tenacious secretions in the bronchus intermedius. The right superior segmental bronchus and right lower lobe bronchi as well. These were suctioned free, withdrawn, removed and then irrigation undertaken on that side with sterile saline. By conclusion, all main bronchi and segmental bronchi were completely free of tenacious secretions and much improved appearance was noted. Suctioning of the endotracheal tube and withdrawal of the scope did show some residual mid tracheal secretions though minor in comparison to those in the more distal airways. The hospitalist, Dr. Tay, was in attendance during the course of the procedure and advised to keep the patient intubated with transfer to the intensive care unit for further evaluation and management. This was accomplished without problem. Blood loss was minimal. There was no evidence of bleeding or other complication. Jaci Lake MD JM/MODL Electronically Signed By: JACI LAKE MD 06/21/25 1244 PATIENT NAME: ROCK MORALES OPERATIVE REPORT DATE OF : 63 REPORT #: [id number] PHYSICIAN: JACI LAKE MD PCP: NORAH FLORES MD REPORT IS CONFIDENTIAL AND NOT TO BE RELEASED WITHOUT AUTHORIZATION [address], [place] [address] Signed /[id number] cc: MD Dr. Paola Cedeño Dr. Copies: NORAH FLORES MD ~ Electronically Signed By: JACI LAKE MD 06/21/25 1244 PATIENT NAME: ROCK MORALES OPERATIVE REPORT DATE OF : 63 REPORT #: [id number] PHYSICIAN: JACI LAKE MD PCP: NORAH FLORES MD REPORT IS CONFIDENTIAL AND NOT TO BE RELEASED WITHOUT AUTHORIZATION
--- NOTE | 2025-06-21 13:12 | NUR ---
PT NOT ABLE TO CONVERSE. PROVIDED PRAYER.
--- NOTE | 2025-06-21 15:44 | NUR ---
DECREASED O2 TO 30%.
--- NOTE | 2025-06-21 16:15 | NUR ---
PT REPOSISTIONED TO LEFT SIDE USING PILLOWS. PT WAKES EASILY WITH STIMULATION WITHOUT SUSTAINED EYE OPENING. ORAL CARE COMPLETE. SP02 DROPS TO 80 WITH ROTATION TO LEFT SIDE, HOB ELEVATED MORE, FI02 TITRATED TO 40% TILL SP02 RECOVERS. CMS DISTAL TO RESTRAINTS INTACT. AMBRIZ DRAINING DILUTE YELLOW URINE. AMBRIZ CARE COMPLETE.
--- NOTE | 2025-06-21 19:30 | NUR ---
HANDOFF REPORT RECEIVED FROM KAYLEEN GUEVARA. ALL QUESTIONS ANSWERED. VENT SETTING PER RT. PATIENT IN DIRECT OBSERVATION OF RN STATION.
--- NOTE | 2025-06-21 20:15 | NUR ---
PATIENT ASSESSMENT COMPLETE. PATIENT REMAINS INTUBATED AND SEDATED. ETT 7.5 CM AND 24 @ THE LIPS. PROPOFOL 50 MCG/KG/MIN AND FENTANYL 112.5 MCG/HR INFUSING. IV SITES INTACT. RASS -1. VENT SETTINGS; FIO2 30, VT 440, RR 16, PEEP 8. RR EVEN AND UNLABORED. NSR, HR 80'S-90'S. BOWEL SOUNDS HYPOACTIVE. OG TUBE INTACT AND ON LIWS. AMBRIZ INTACT AND DRAINING CLEAR YELLOW URINE. RESTRAINTS IN PLACE PER MD ORDER, CMS INTACT. VITAL SIGNS STABLE. THIS RN AND KAYLEEN WILLETT REMAIN AT BEDSIDE.
--- NOTE | 2025-06-21 21:35 | NUR ---
DR HERNANDEZ ROUNDING ON UNIT. PROVIDED UPDATE ON PATIENT. NO NEW ORDERS AT THIS TIME.
--- NOTE | 2025-06-21 22:03 | NUR ---
PATIENT REMAINS SEDATED AND INTUBATED. VENT SETTINGS PER RT. MEDICATION ADMINISTERED PER EMAR. SKIN CARE COMPLETE. ETT 24 @ THE LIPS. SCDS ON. IV SITES INTACT. AMBRIZ CATH INTACT AND DRAINING WITHOUT DIFFICULTY. OG TUBE INTACT AND ON LIWS. THIS RN AND BRENNON RN REMAIN IN ROOM. VITAL SIGNS STABLE.
[2025-06-22] VITALS (23 sets, daily range): BP systolic 87–125; BP diastolic 53–76
--- NOTE | 2025-06-22 00:15 | NUR ---
PATIENT REMAINS INTUBATED AND SEDATED. THIS RN IN ROOM. AMBRIZ CARE COMPLETE. VENT SETTINGS PER RT. PATIENT GETS AGITATED AND RESTLESS WHILE COMPLETING CARES. PATIENT CONSOLABLE W/ VERBAL REASSURANCE. PROPOFOL AND FENTANYL GTT REMAIN INFUSING PER MEDICATION FLOWSHEET. NO FURTHER NEEDS AT THIS TIME. PATIENT REMAINS IN DIRECT OBSERVATION FROM RN STATION.
--- NOTE | 2025-06-22 01:20 | NUR ---
PATIENT REPOSITIONED IN BED. VENT SETTINGS PER RT. PATIENT REMAINS ON PROPOFOL AND FENTANYL GTT PER MEDICATION FLOWSHEET. IV SITES WNL. IVF INFUSING PER EMAR. ORAL CARE PROVIDED. ETT REMAINS 24 AT THE LIPS. AMBRIZ INTACT. RESTRAINTS IN PLACE PER MD ORDER, CMS INTACT. OG REMAINS ON LIWS. VITAL SIGNS STABLE. PATIENT REMAINS IN DIRECT OBSERVATION FROM RN STATION.
--- NOTE | 2025-06-22 03:05 | NUR ---
THIS RN AND KAYLEEN WILLETT IN ROOM. PATIENT REMAINS INTUBATED AND SEDATED. VENT SETTINGS PER RT. PATIENT TOLERATING VENT WELL AT THIS TIME. PROPOFOL AND FENTANYL GTT INFUSING PER MEDICATION FLOWSHEET. NO NEEDS AT THIS TIME. PATIENT REMAINS IN DIRECT OBSERVATION OF THE RN STATION.
[2025-06-22 05:18] LABS: BASOPHILS 0.5 % (0.1-1.2); EOSINOPHILS 0.6 % (0.7-5.8); LYMPHOCYTES 28.9 % (19.3-51.7); MCH 28.9 PG (25.6-32.2); MCHC 31.3 g/dL (32.2-35.5); MCV 92.5 fL (79.4-94.8); MONOCYTES 12.4 % (4.7-12.5); NEUTROPHILS 56.4 % (34.0-71.1); RBC 3.98 M/uL (3.93-5.22)
--- NOTE | 2025-06-22 05:19 | NUR ---
THIS RN AND KAYLEEN WILLETT IN ROOM. PATIENT REMAINS INTUBATED AND SEDATED. PATIENT REPOSITIONED. FENTANYL AND PROPOFOL GTT INFUSING PER MEDICATION FLOWSHEET. IV SITES INTACT. ETT 24 @ THE LIPS. OG TUBE INTACT AND REMAINS ON LIWS. AMBRIZ INTACT AND DRAINING W/O DIFFICULTY. RESTRAINTS REMAIN IN PLACE PER MD ORDER. PATIENT ABLE TO FOLLOW VERBAL COMMANDS. VITAL SIGNS STABLE, PATIENT REMAINS IN DIRECT OBSERVATION OF THE RN STATION.
[2025-06-22 05:41] LABS: ALT (SGPT) 25.0 U/L (14-59); AST (SGOT) 52.0 U/L (15-37); GLOMERULAR FILTRATION RATE,EST 99.0 mL/min (>60); PROTEIN, TOTAL 6.1 g/dL (6.4-8.2); UREA NITROGEN 19.0 mg/dL (7-18)
--- NOTE | 2025-06-22 05:44 | NUR ---
THIS RN AND KAYLEEN WILLETT IN ROOM TO ASSIST RT GARCÍA W/ MORNING ABG. PATIENT TOLERATED WELL. PATIENT REMAINS INTUBATED AND SEDATED. ETT 24 @ THE LIPS. RESTRAINTS REMAIN IN PLACE PER MD ORDER. VITAL SIGNS STABLE. THIS RN AND BRENNON RN REMAIN IN ROOM.
[2025-06-22 05:49] LABS: BASE EXCESS, BLOOD GAS 14.3 mmol/L (-2-2); HCO3, BLOOD GAS 38.3 mmol/L (22-26); O2 SATURATION, BLOOD GAS 93.9 % (95.0-100.0); OXYGEN RECEIVED, BLOOD GAS 30.0; PCO2, BLOOD GAS 42.7 mmHg (35-45); PH, BLOOD GAS 7.56 (7.35-7.45); PO2, BLOOD GAS 60.0 mmHg (80-100); TOTAL CO2, BLOOD GAS 39.6
--- NOTE | 2025-06-22 06:04 | NUR ---
PATIENT REMAINS INTUBATED AND SEDATED. PROPOFOL AND FENTANYL GTT INFUSING PER MEDICATION FLOWSHEET. RESTRAINTS REMAIN IN PLACE PER MD ORDER. VITAL SIGNS STABLE. NO EVIDENCE OF ACUTE DISTRESS. PATIENT REMAINS IN DIRECT OBSERVATION OF RN STATION
--- NOTE | 2025-06-22 06:34 | NUR ---
DR HERNANDEZ CALLED AND REVIEWED AM LABS. NO NEW ORDERS AT THIS TIME.
[2025-06-22] MEDS ORDERED: BUDESONIDE 0.5 MG/2 ML VIAL INH SCH (08:00)
[2025-06-22] MEDS ORDERED: ALBUTEROL/IPRATROPIUM 3 ML NEB INH SCH (08:00)
[2025-06-22] MEDS ORDERED: POTASSIUM CHLORIDE 40 MEQ,LIDOCAINE HCL 1% 40 MG in DEXTROSE 5% 250 ML IV ONE (09:00)
--- NOTE | 2025-06-22 09:47 | NUR ---
PT BACK TO ROOM FROM CTA - PT TOLERATED WELL WITHOUT ANY COMPLICATIONS DURING TRANSFER. VS REMAIN STABLE. RESTRAINTS IN PLACE, PT REPOSISTIONED UP IN BED, CMS INTACT DISTAL TO RESTRAINTS. RT AT BEDSIDE TO MONITOR SBT.
--- NOTE | 2025-06-22 12:20 | NUR ---
SEDATION MEDICATION TITRATED OFF FOR SBT - PT DROWSY BUT ABLE TO SUSTAIN EYE OPENING AND FOLLOW DIRECTIONS. MD AND RT AT BEDSIDE FOR EXTUBATION AT 1220. PT TOLERATED WITHOUT DIFFICULTY. PLACED ON NC AT 6L WITH TITRATION DOWN TO 3L. PT REPORTS GENERALIZED PAIN IN BACK AND NECK, STATES THIS IS CHRONIC. PT REORIENTED TO SITUATION AND TIMELINE BUT ANSWERS SELF AND YEAR AND LOCATION QUESTIONS CORRECTLY.
--- NOTE | 2025-06-22 13:45 | NUR ---
PT REMAINS DROWSY BUT EASILY AWAKES, ORIENTED. SPO2 STABLE ON 2L NC. PT REQUESTS FOOD AND DRINK. VERIFIED WITH MD SHEIKH. PT PASSED BEDSIDE SWALLOW WITHOUT DIFFICULTY. WATER AND PUDDING PROVIDED. PT ABLE TO FEED SELF.
[2025-06-22] MEDS ORDERED: OXYCODONE HCL 5 MG TAB PO PRN (14:00)
--- NOTE | 2025-06-22 16:00 | NUR ---
PT RESTING SITTING UP IN BED, IRRITATED WITH ALARMS AND BEING WOKEN FREQUENTLY. REQUESTS A REGULAR DIET DINNER. PT STATES PAIN IS "GETTING BETTER" AFTER PREVIOUSLY ADMINISTERED PRN. SPO2 STABLE ON 2L NC. EXP WHEEZE AND DIMINISHED LOWER LOBES NOTED.
--- NOTE | 2025-06-22 18:00 | NUR ---
FULL BED BATH COMPLETE USING SOAPY WATER AND RAGS. AMBRIZ CARE COMPLETE. POWDER APPLIED TO ALL AREAS. ALYVN 1 OF 2 REPLACED ON LLE. COCCYX ALLYVN PLACED ON COCCYX, WEEPING LESION NOTED OF UPPER LEFT BUTTOCK AREA, SKIN FRICTION TEAR ON LOWER GLUTEAL CLEFT WITH BLANCHABLE REDNESS THROUGHOUT, ZINC OINTMENT APPLIED. SCDS IN PLACE. PT EATING REG DIET DINNER WITHOUT DIFFICULTY OR DESATURATION.
[2025-06-22] MEDS ORDERED: ARFORMOTEROL TARTRATE 15 MCG/2 ML VIAL INH SCH (20:00)
[2025-06-23] VITALS (11 sets, daily range): BP systolic 100–127; BP diastolic 61–79
--- NOTE | 2025-06-23 03:03 | NUR ---
pt awaken for care at this time, both eye washed and then new medication applied to both eyes. warm blankets given, carether care provided and other skin care that was needed.
--- NOTE | 2025-06-23 04:26 | NUR ---
pt appears to be sleeping at this time.
[2025-06-23 05:18] LABS: BASOPHILS 0.5 % (0.1-1.2); EOSINOPHILS 1.1 % (0.7-5.8); LYMPHOCYTES 28.2 % (19.3-51.7); MCH 28.7 PG (25.6-32.2); MCHC 30.3 g/dL (32.2-35.5); MCV 94.6 fL (79.4-94.8); MONOCYTES 14.5 % (4.7-12.5); NEUTROPHILS 53.8 % (34.0-71.1); RBC 4.29 M/uL (3.93-5.22)
[2025-06-23 05:33] LABS: ALT (SGPT) 33.0 U/L (14-59); AST (SGOT) 53.0 U/L (15-37); GLOMERULAR FILTRATION RATE,EST 81.0 mL/min (>60); PROTEIN, TOTAL 6.5 g/dL (6.4-8.2); UREA NITROGEN 14.0 mg/dL (7-18)
[2025-06-23] MEDS ORDERED: POTASSIUM CHLORIDE 10 MEQ TABCR PO ONE (09:00)
[2025-06-23] MEDS ORDERED: MAGNESIUM SULFATE 2 GM/50 ML BAG IV SCH (09:00)
--- NOTE | 2025-06-23 09:00 | NUR ---
PT WAKES EASILY, REPOSISTIONED IN BED TO EAT BREAKFAST. SP02 STABLE AT 3L NC. PT IS ORIENTED BUT FORGETFUL OF LAST WEEKS EVENTS/TIMELINE. ASSESSMENT UNCHANGED FROM PREVIOUS. PRN ADMINISTERED FOR 6/10 GENERALIZED PAIN. CALL LIGHT IN REACH.
--- NOTE | 2025-06-23 10:00 | NUR ---
PT WORKING WITH PT AND RT IN ROOM
--- NOTE | 2025-06-23 10:44 | NUR ---
PATIENT WORKED WITH PT AND RT AND LOWEST SpO2 WAS 86% ON 3 LPM. PATIENT THEN AMBULATED ON 5 LPM AND WENT NO LOWER THAN 88%. TODAY'S RECOMMENDATION IS 3 LPM AT REST AND 5 LPM WITH EXERTION. IT SHOULD BE NOTED THAT ON RA PATIENT WAS 66% ON RA WITH ABSOLUTELY NO CHANGE IN SYMPTOMS. 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
--- NOTE | 2025-06-23 11:00 | NUR ---
PT UP IN CHAIR PLAYING PUZZLE GAME ON TABLET. PT STATES PAIN IS IMPROVED AFTER PRN. AMBRIZ DRAINING LARGE QUANTITY DILUTE URINE AFTER LASIX DOSE. CALL LIGHT IN REACH, PT DENIES NEEDS AT THIS TIME.
--- NOTE | 2025-06-23 14:15 | NUR ---
PT ASSISTED BACK TO BED FROM CHAIR. CLEAN LINEN PLACED ON BED. PT AMBULATES USING WALKER, SBA. NO DYSPNEA NOTED ON AMBULATION. RT IN ROOM FOR TREATMENT. CALL LIGHT IN REACH.
--- NOTE | 2025-06-23 16:00 | NUR ---
PT RESTING ON SIDE IN BED WITH EYES CLOSED, RR EVEN AND UNLABORED. SPO2 92% 3L NC. CALL LIGHT IN REACH.
--- NOTE | 2025-06-23 16:30 | NUR ---
PT AWAKE IN BED VISITING WITH SIGNIFICANT OTHER AT BEDSIDE. PT DENIES NEEDS AT THIS TIME. CALL LIGHT IN REACH.
--- NOTE | 2025-06-23 17:10 | NUR ---
PT CONTINUES TO REST WITH EYES CLOSED, SPO2 92% ON ROOM AIR, HR 120'S SINUS TACH. WILL CONT TO LET PT REST.
--- NOTE | 2025-06-23 17:11 | NUR ---
PT CONTINUES TO REST WITH EYES CLOSED, SPO2 92% ON ROOM AIR, HR 120'S SINUS TACH. WILL CONT TO LET PT REST.
--- NOTE | 2025-06-23 18:00 | NUR ---
PT UP TO CHAIR AFTER DINNER - NEW GOWN APPLIED. EXTENSIVE HAIR CONDITIONER IN HAIR TO REMOVE MATTED TANGLES. PT BACK TO BED, CALL LIGHT IN REACH. VS STABLE.
--- NOTE | 2025-06-23 19:45 | NUR ---
SHIFT REPORT RECEIVED. PATIENT RESTING IN BED. TOLERATING 3L NC. DENIES NEEDS. CALL LIGHT IN REACH.
--- NOTE | 2025-06-23 21:00 | NUR ---
PATIENT PROVIDED MEDS PER ORDER. PATIENT AAOX4. TOLERAITNG 3L NC. LUNG SOUNDS ARE CLEAR. DENIED FEELING SOB. ABD SOFT; BOWEL SOUNDS ACTIVE. DENIED GI UPSET. WOUNDS ON LEFT LEG ARE COVERED; DRESSING CDI. OINTMENT APPLIED TO EYES WHICH ARE GREATLY IMPROVED. PATIENT REPORTS PAIN IN HER BACK. PRN PAIN MEDS PROVIDED. LIGHTS DIMMED FOR SLEEP. CALL LIGHT IN REACH.
[2025-06-24] VITALS (10 sets, daily range): BP systolic 107–139; BP diastolic 59–83
--- NOTE | 2025-06-24 00:36 | NUR ---
PATIENT RESTING IN BED. EYES CLOSED. WAKES EASILY WITH RN IN ROOM. PATIENT TOLERATING 3L NC. VS STABLE. DENIES ANY NEEDS OR CONCERNS.
--- NOTE | 2025-06-24 02:30 | NUR ---
PATIENT RESTING WITH EYES CLOSED. DOES NOT WAKE WHEN RN IN ROOM. OINTMENT FOR EYE INFECTION HELD AT THIS TIME DUE TO IMPROVEMENT IN CONDITION AND ALLOWING PATIENT REST. CALL LIGHT IN REACH.
--- NOTE | 2025-06-24 04:31 | NUR ---
PATIENT WOKE WHEN RN ENTERED ROOM. PATIENT REPORTS FEEL TO VOID. AMBRIZ ASSESSED AND NOTED TO BE WRAPPED AROUND PATIENT'S LEG UNABLE TO DRAIN. TUBING REPOSTIIONED AND DRAINING FREELY. PATIENT REPORTS REDUCED SENSATION TO VOID. PATIENT REPORTS HEADACHE AND PACK PAIN. TYLNEOL OFFERED AND DECLINED. PRN OXY PROVIDED.
[2025-06-24 05:23] LABS: BASOPHILS 0.8 % (0.1-1.2); EOSINOPHILS 1.5 % (0.7-5.8); LYMPHOCYTES 32.0 % (19.3-51.7); MCH 28.9 PG (25.6-32.2); MCHC 30.9 g/dL (32.2-35.5); MCV 93.6 fL (79.4-94.8); MONOCYTES 13.5 % (4.7-12.5); NEUTROPHILS 50.2 % (34.0-71.1); RBC 4.53 M/uL (3.93-5.22)
[2025-06-24 05:45] LABS: AST (SGOT) 51.0 U/L (15-37); GLOMERULAR FILTRATION RATE,EST 100.0 mL/min (>60); PROTEIN, TOTAL 6.6 g/dL (6.4-8.2); UREA NITROGEN 14.0 mg/dL (7-18)
[2025-06-24 05:56] LABS: ALT (SGPT) 35.0 U/L (14-59)
--- NOTE | 2025-06-24 06:21 | NUR ---
eye ointment applied. eyes appear clear and patient denied irritation. juice provided per request. patient tolerating 3L NC. Stone emptied; urine is concentrated. patient is playing a game on her tablet. denied any further needs. appears in good spirits. call light in reach.
[2025-06-24] MEDS ORDERED: PANTOPRAZOLE SODIUM 40 MG TABEC PO SCH (09:00)
[2025-06-24] MEDS ORDERED: MAGNESIUM SULFATE 2 GM/50 ML BAG IV ONE (09:00)
--- NOTE | 2025-06-24 10:07 | NUR ---
SLEEPING IN BED. DID NOT WAKE AT THIS TIME. PREVIOUSLY, PATIENT HAS REFUSED PLACEMENT MULTIPLE TIMES STATING SHE IS GOING TO GO HOME. WILL NEED HOME OXYGEN, PREFERS [facility] AND WANTS HOME HEALTH INSTEAD OF SNF PLACEMENT.
[2025-06-24] MEDS ORDERED: MAGNESIUM SULFATE 50 ML IV ONE (11:27)
--- NOTE | 2025-06-24 12:22 | NUR ---
VISITED DURING SPIRITUAL CARE ROUNDS. PT APPEARED TO BE SLEEPING. DID NOT DISTURB. PROVIDED PRAYER.
--- NOTE | 2025-06-24 13:00 | NUR ---
PT SITTING UP IN CHAIR. CALL LIGHT IN REACH. WORKED WITH PHSY THER.
--- NOTE | 2025-06-24 13:33 | NUR ---
PT CALLED TO ASK FOR JUICE. REMOVED LUNCH TRAY. CALL IGHT IN REACH. PLAYING ON PHONE. URINE NOW LIGHT YELLOW.
--- NOTE | 2025-06-24 15:00 | NUR ---
RANDY WESTON. IN ROOM AND BROUGHT HER LUNCH OF TACOS. PT PLAYING ON PHONE. PT IS HOPING TO BE DISCHARGED HOME TOMORROW. AMBRIZ DRAINING LIGHT YELLOW URINE.
--- NOTE | 2025-06-24 19:05 | NUR ---
REPORT RECEIVED FROM LUNA BEYER. pt RESTING IN THE BED. BOARD UPDATED. pt DENIES ANY OTHER NEEDS AT THIS TIME. CALL LIGHT WITHIN REACH.
--- NOTE | 2025-06-24 20:55 | NUR ---
ASSESSMENT AND VITAL SIGNS DONE. SNACK PROVIDED. IV ABX INFUSING PER ORDER. SCHEDULED MEDS ADMINISTERED. pt C/O 04/25 PAIN. PRN PAIN MEDS ADMINISTERED. IV ASSESSED, WNL. pt DENIES ANY OTHER NEEDS AT THIS TIME. CALL LIGHT WITHIN REACH.
--- NOTE | 2025-06-24 22:39 | NUR ---
pt RESTING IN THE BED WITH EYES CLOSED. RR EVEN AND UNLABORED. CPOX ON pt SATTING AT 91%. CALL LIGHT WITHIN REACH.
--- NOTE | 2025-06-24 23:53 | NUR ---
pt RESTING IN THE BED WITH EYES CLOSED. RR EVEN AND UNLABORED. CPOX ON. pt SATTING AT 91% ON 3LNC. CALL LIGHT WITHIN REACH.
[2025-06-25] VITALS (7 sets, daily range): BP systolic 116–158; BP diastolic 62–94
--- NOTE | 2025-06-25 01:51 | NUR ---
IN RM TO DO VITAL SIGNS. pt C/O 05/26 PAIN. PRN PAIN MEDS ADMINISTERED. pt ON CPOX SATTING AT 91% ON 3LNC. pt DENIES ANY OTHER NEEDS AT THIS TIME. CALL LIGHT WITHIN REACH.
--- NOTE | 2025-06-25 03:14 | NUR ---
pt RESTING IN THE BED. pt ON CPOX. pt SATTING AT 91% ON 3LNC. NO OTHER NEEDS AT THIS TIME. CALL LIGHT WITHIN REACH.
[2025-06-25 05:22] LABS: BASOPHILS 0.5 % (0.1-1.2); EOSINOPHILS 1.6 % (0.7-5.8); LYMPHOCYTES 30.3 % (19.3-51.7); MCH 28.6 PG (25.6-32.2); MCHC 30.8 g/dL (32.2-35.5); MCV 93.0 fL (79.4-94.8); MONOCYTES 12.8 % (4.7-12.5); NEUTROPHILS 53.5 % (34.0-71.1); RBC 4.72 M/uL (3.93-5.22)
--- NOTE | 2025-06-25 05:28 | NUR ---
IN RM TO DO VITAL SIGNS AND DAILY WEIGHT. pt STOOD ON SCALE. SNACK PROVIDED. DENIES ANY OTHER NEEDS AT THIS TIME. pt SATTING AT 93% ON 3LNC. CPOX ON. CALL LIGHT WITHIN REACH.
[2025-06-25 05:36] LABS: SMEAR REVIEW BLOOD SEE COMMENTS
[2025-06-25 05:37] LABS: ALT (SGPT) 32.0 U/L (14-59); AST (SGOT) 47.0 U/L (15-37); GLOMERULAR FILTRATION RATE,EST 91.0 mL/min (>60); PROTEIN, TOTAL 7.0 g/dL (6.4-8.2); UREA NITROGEN 18.0 mg/dL (7-18)
--- NOTE | 2025-06-25 07:33 | NUR ---
MORNING REPORT RECIEVED FROM, KAYLEEN BUENO. PT LAYING IN BED WITH EYES CLOSED CHEST RISE EQUAL BILAT, CPOX I PLACE WITH 3L NC IN PLACE. PT HAS CALL LIGHT IN REACH IF NEEDED.
[2025-06-25] MEDS ORDERED: POTASSIUM CHLORIDE 40 MEQ,LIDOCAINE HCL 1% 40 MG in DEXTROSE 5% 250 ML IV ONE (07:45)
[2025-06-25] MEDS ORDERED: MAGNESIUM SULFATE 2 GM/50 ML BAG IV SCH (08:30)
--- NOTE | 2025-06-25 09:00 | NUR ---
Spoke with Rita. Updated per am report with Dr. Mar she may be able to dc today. Pt wanting to go home. Pt would like HH and will need 02 on dc. Orders for 02 were sent yesterday to [facility]. Pt denies other needs. Boyfriend will drive her home. I called [facility] and they will deliver a large 02 take to pts room for transport home as she is using 5L with activity. Charge nurse updated. I received a HH referral from Dr. Mar and pt would like to use [facility]. I will fax her chart when the discharge is completed.
--- NOTE | 2025-06-25 10:01 | NUR ---
PT LAYING IN BED, PT TOLERATED BREAKFAST WELL, PT ALERT AND ORIENTED, WITH 3L NC, AND CPOX IN PLACE. PT PT VITALS STABLE WITH NO CURRENT CONCERNS CALL LIGHT IN REACH.
--- NOTE | 2025-06-25 10:12 | NUR ---
ASKED PATIENT IF SHE WOULD LIKE TO TAKE A SHOWER TODAY AND SHE SAID YES. PATIENT IS SLEEPING NOW.
[2025-06-25] MEDS ORDERED: LASIX40 MG PO (10:21)
[2025-06-25] MEDS ORDERED: POTASSIUM CHLO20 ME1 PO (10:21)
--- NOTE | 2025-06-25 11:36 | NUR ---
PT NOT AVAILABLE FOR VISIT. PROVIDED PRAYER.
--- NOTE | 2025-06-25 11:56 | NUR ---
ASKED PATIENT AGAIN IF SHE WOULD LIKE TO TAKE A SHOWER BEFORE SHE GETS DISCHARGED TOU AND SHE SAID SHE WILL TAKE ONE WHEN SHE GETS HOME BECAUSE ALL OF HER SOAP AND SHAMPOO ARE AT HOME. SHE ALSO REFUSED TO DO ORAL CARE. GOT PATIETNT A CUP OF JUICE.
--- NOTE | 2025-06-25 14:09 | NUR ---
Chart faxed to [facility] for PT/OT.
== END 2025-06-25 13:48 | disposition home health service (06) | DRG 208 ==
LOC: ED 14:44 → MS 19:39 → CCU 06-20 12:25 → MS 06-24 17:21
PROVIDERS: Emergency Medicine; Internal Medicine; Student in an Organized Health Care Education/Training Program; Surgery; ADMIT Family Medicine; ATTEND Family Medicine
PROC: 3E03329 Introduction of Other Anti-infective into Peripheral Vein, Percutaneous Approach (ICD-10-PCS; 2025-06-08)
PROC: 5A09357 Assistance with Respiratory Ventilation, Less than 24 Consecutive Hours, Continuous Positive Airway Pressure (ICD-10-PCS; 2025-06-08)
PROC: 4A133R1 Monitoring of Arterial Saturation, Peripheral, Percutaneous Approach (ICD-10-PCS; 2025-06-08)
PROC: 5A0935A Assistance with Respiratory Ventilation, Less than 24 Consecutive Hours, High Flow/Velocity Cannula (ICD-10-PCS; 2025-06-19)
PROC: 0B9M8ZX Drainage of Bilateral Lungs, Via Natural or Artificial Opening Endoscopic, Diagnostic (ICD-10-PCS; 2025-06-20)
PROC: 5A1945Z Respiratory Ventilation, 24-96 Consecutive Hours (ICD-10-PCS; principal; 2025-06-20 11:45)
PROC: 0T9B70Z Drainage of Bladder with Drainage Device, Via Natural or Artificial Opening (ICD-10-PCS; 2025-06-21)
DX: J96.01 Acute respiratory failure with hypoxia (principal); I50.33 Acute on chronic diastolic (congestive) heart failure; J18.9 Pneumonia, unspecified organism; J44.1 Chronic obstructive pulmonary disease with (acute) exacerbation; J44.0 Chronic obstructive pulmonary disease with (acute) lower respiratory infection; K76.6 Portal hypertension; R18.8 Other ascites; E87.20 Acidosis, unspecified; I11.0 Hypertensive heart disease with heart failure; K74.69 Other cirrhosis of liver; E83.42 Hypomagnesemia; B18.2 Chronic viral hepatitis C; I27.20 Pulmonary hypertension, unspecified; I27.81 Cor pulmonale (chronic); I50.813 Acute on chronic right heart failure; K76.89 Other specified diseases of liver; F17.210 Nicotine dependence, cigarettes, uncomplicated; H10.33 Unspecified acute conjunctivitis, bilateral; L98.499 Non-pressure chronic ulcer of skin of other sites with unspecified severity; D69.59 Other secondary thrombocytopenia; R16.1 Splenomegaly, not elsewhere classified; E87.6 Hypokalemia; R79.1 Abnormal coagulation profile; Z88.0 Allergy status to penicillin; Z91.040 Latex allergy status; Z88.2 Allergy status to sulfonamides; Z79.899 Other long term (current) drug therapy; Z91.81 History of falling; Z78.1 Physical restraint status
CPT/HCPCS: 00520; 31720; 36415; 36592; 36600; 51702; 70450; 71045; 71260; 72170; 76700; 80048; 80053; 80074; 80307; 81001; 82140; 82550; 82728; 82803; 83010; 83550; 83605; 83615; 83735; 83880; 84100; 84466; 85025; 85060; 85379; 85384; 85610; 85730; 86880; 86885; 87040; 87070; 87075; 87205; 87522; 87902; 93005; 93010; 93306; 93971; 94002; 94003; 94640; 94660; 94667; 94668; 94760; 94761; 94762; 94799; 97116; 97161; 97162; 97166; 97168; 97530; 97535; 99406; A9270; G0480; J0456; J0696; J1100; J1885; J1938; J2003; J2250; J2405; J2470; J2704; J3010; J3475; J3480; J3490; J7060; J7121; J7512; J7605; Q9967